=== PATIENT | male | born 1985 | race Caucasian/White ===

== ENCOUNTER 2023-05-25 10:02 | Outpatient (REF) | payer MEDICAID, SELFPAY ==
[2023-05-25 11:07] LABS: MANUAL DIFF FLAG NO
[2023-05-25 11:27] LABS: Basophils Percent Auto 0.3 % (0-2); Eosinophils Absolute Auto 0.1 X10*3/uL (0.0-0.4); Eosinophils Percent Auto 1.1 % (0-4); Hematocrit 46.1 % (42.0-52.0); Hemoglobin 15.1 g/dl (14.0-18.0); Imm Gran Abs Auto 0.05 X10*3/uL (0.00-0.03); Imm Gran Pct Auto 0.4 % (0.0-0.4); Lymphocytes Absolute Auto 2.4 X10*3/uL (1.2-4.9); Lymphocytes Percent Auto 21.5 % (20-40); Mean Corpuscular HGB Conc 32.8 g/dl (31.0-36.0); Mean Corpuscular Hemoglobin 29.1 pg (27.0-33.0); Mean Corpuscular Volume 88.8 fL (80.0-98.0); Mean Platelet Volume 10.6 fL (9.4-12.4); Monocytes Absolute Auto 1.1 X10*3/uL (0.1-1.2); Monocytes Percent Auto 10.1 % (2-11); Neutrophils Absolute Auto 7.4 x10*3/uL (2.0-8.3); Neutrophils Percent Auto 66.6 % (45-73); Platelet Count 226 X10*3/uL (160-400); Red Blood Count 5.19 X10*6/uL (4.60-5.80); White Blood Count 11.2 X10*3/uL (4.8-10.8)
[2023-05-25 12:36] LABS: Alanine Aminotransferase 10 U/L (0-40); Alkaline Phosphatase 76 U/L (39-117); Anion Gap 14 (12-20); Aspartate Amino Transferase 20 U/L (5-37); Bilirubin Total 0.8 mg/dL (0.0-1.0); Blood Urea Nitrogen 8 mg/dL (9-16); Calcium 9.4 mg/dL (8.4-10.2); Carbon Dioxide 27 mmol/L (22-29); Chloride 102 mmol/L (96-108); Estimated Glomerular Filt Rate > 60; Glucose Random 130 mg/dL (60-115); Potassium 3.6 mmol/L (3.3-5.1); Sodium 139 mmol/L (135-145); Total Protein 8.1 g/dL (6.5-8.0)
[2023-05-25 12:40] LABS: Microalbum/Creatinine Ratio Ur 6.1 ug/mg cr (<30)
== END 2023-05-25 10:03 | disposition home or self-care (01) ==
LOC: HO.HHCL 10:02
PROVIDERS: Visit Provider Internal Medicine Geriatric Medicine
DX: E11.65 Type 2 diabetes mellitus with hyperglycemia (principal); I10 Essential (primary) hypertension; E66.01 Morbid (severe) obesity due to excess calories; R44.0 Auditory hallucinations; F32.A Depression, unspecified; F10.20 Alcohol dependence, uncomplicated; G47.33 Obstructive sleep apnea (adult) (pediatric); R42 Dizziness and giddiness
CPT/HCPCS: 36415; 80053; 82043; 82570; 85025

== ENCOUNTER 2023-09-15 10:19 | Outpatient (REF) | payer MEDICAID, SELFPAY ==
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
[2023-09-15 11:43] LABS: Hematocrit 46.2 % (42.0-52.0); Hemoglobin 15.5 g/dl (14.0-18.0); Mean Corpuscular HGB Conc 33.5 g/dl (31.0-36.0); Mean Corpuscular Hemoglobin 28.9 pg (27.0-33.0); Mean Platelet Volume 9.7 fL (9.4-12.4); Platelet Count 194 X10*3/uL (160-400); Red Blood Count 5.37 X10*6/uL (4.60-5.80); Red Cell Distribution Width 14.6 % (11.0-16.0); White Blood Count 11.3 X10*3/uL (4.8-10.8)
[2023-09-15 11:54] LABS: Estimated Average Glucose 126 mg/dL
[2023-09-15 12:24] LABS: Creatinine Urine 211.41 mg/dL; Microalbum/Creatinine Ratio Ur 7.5 ug/mg cr (<30)
[2023-09-15 12:39] LABS: Folate 4.8 ng/mL (> or = 4.0); Vitamin B12 289 pg/mL (200-900)
[2023-09-15 12:43] LABS: HBc Num1 0.07 S/CO (0.00-0.79); HIV AB/AG Nonreactive (Nonreactive); HIV Num 1 0.08 S/CO (0.00-0.99); Hepatitis B Core Antibody Nonreactive (Nonreactive); Hepatitis B Surface Antigen Negative (Negative); ~HepC Num1 0.11 S/CO (0.00-0.79); ~Hepatitis B Surface Antibody NONREACTIVE (Nonreactive); ~Hepatitis C Antibody Nonreactive (Nonreactive)
[2023-09-15 12:50] LABS: Alanine Aminotransferase 19 U/L (0-40); Albumin Level 4.1 g/dL (3.5-5.0); Alkaline Phosphatase 91 U/L (39-117); Anion Gap 13 (12-20); Aspartate Amino Transferase 31 U/L (5-37); Bilirubin Total 1.2 mg/dL (0.0-1.0); Blood Urea Nitrogen 11 mg/dL (9-16); Calcium 9.2 mg/dL (8.4-10.2); Carbon Dioxide 25 mmol/L (22-29); Chloride 101 mmol/L (96-108); Cholesterol 224 mg/dL (<200); Estimated Glomerular Filt Rate > 60; Glucose Random 151 mg/dL (60-115); HDL Cholesterol 45 mg/dL (>40); LDL Cholesterol Calculated 154 mg/dL (<100); Potassium 3.4 mmol/L (3.3-5.1); Sodium 136 mmol/L (135-145); TSH reflex Free T4 2.37 uIU/mL (0.32-4.0); Total Protein 8.1 g/dL (6.5-8.0); Triglycerides 125 mg/dL (<150); Vitamin D 25-OH Total 7.1 ng/mL (>30)
[2023-09-15 12:59] LABS: Syphilis Screen Nonreactive (Nonreactive)
== END 2023-09-15 10:20 | disposition home or self-care (01) ==
LOC: HO.HHCL 10:19
PROVIDERS: Visit Provider Student in an Organized Health Care Education/Training Program
DX: Z00.00 Encounter for general adult medical examination without abnormal findings (principal); Z11.4 Encounter for screening for human immunodeficiency virus [HIV]; M54.6 Pain in thoracic spine; M54.2 Cervicalgia
CPT/HCPCS: 36415; 71046; 72040; 72070; 80053; 80061; 82043; 82306; 82570; 82607; 82746; 83036; 84443; 85027; 86704; 86706; 86780; 86803; 87340; 87389

== ENCOUNTER 2023-11-26 16:48 | Outpatient (REF) | payer MEDICAID, SELFPAY ==
[2023-11-26 18:40] LABS: CT PCR NOT DETECTED (Not Detect.); NG PCR NOT DETECTED (Not Detect.)
== END 2023-11-26 16:49 | disposition home or self-care (01) ==
LOC: HO.HHCLNP 16:48
PROVIDERS: Visit Provider Student in an Organized Health Care Education/Training Program
DX: Z00.00 Encounter for general adult medical examination without abnormal findings (principal); Z11.3 Encounter for screening for infections with a predominantly sexual mode of transmission
CPT/HCPCS: 0353U

== ENCOUNTER 2024-01-13 11:32 | Outpatient (REF) | payer MEDICAID, SELFPAY ==
--- NOTE | ~2024-01-13 | US_ITS ---
EXAMINATION: US ABDOMEN LIMITED CLINICAL INFORMATION: Massive dilatation in the lower abdomen.. COMPARISON: None available. TECHNIQUE: Real-time imaging of the abdominal wall. FINDINGS: No definite sonographic correlate to the reported symptom of palpable lump in the left periumbilical soft tissues. No evidence of hernia. US/US abdomen limited IMPRESSION: No definite sonographic correlate to the reported symptom of palpable lump in the left periumbilical soft tissues. No evidence of hernia.
== END 2024-01-13 11:33 | disposition home or self-care (01) ==
LOC: HO.US 11:32
PROVIDERS: PCP Student in an Organized Health Care Education/Training Program; Visit Provider Student in an Organized Health Care Education/Training Program
DX: R10.9 Unspecified abdominal pain (principal)
CPT/HCPCS: 76705

== ENCOUNTER 2024-02-08 13:22 | Outpatient (AMB) | payer MEDICAID, SELFPAY ==
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
[2024-02-08 13:35] VITALS: BP 165/90; PULSE 85; O2SAT 97; BMI 60.4
== END 2024-02-08 14:10 | disposition home or self-care (01) ==
PROVIDERS: PCP Student in an Organized Health Care Education/Training Program; Visit Provider Nurse Practitioner Family
DX: M47.817 Spondylosis without myelopathy or radiculopathy, lumbosacral region (principal); M54.50 Low back pain, unspecified; M25.561 Pain in right knee; M25.562 Pain in left knee; E66.01 Morbid (severe) obesity due to excess calories; Z68.44 Body mass index [BMI] 60.0-69.9, adult
CPT/HCPCS: 99204

== ENCOUNTER → 2024-02-08 13:22 | Outpatient (BNVA) | payer MEDICAID, SELFPAY | PROVIDERS: PCP Student in an Organized Health Care Education/Training Program; Visit Provider Nurse Practitioner Family | DX: M47.817 Spondylosis without myelopathy or radiculopathy, lumbosacral region (principal); M54.50 Low back pain, unspecified; G89.29 Other chronic pain; M25.562 Pain in left knee; M25.561 Pain in right knee; E66.01 Morbid (severe) obesity due to excess calories; Z68.44 Body mass index [BMI] 60.0-69.9, adult | CPT/HCPCS: 99212 ==

== ENCOUNTER 2024-02-18 10:54 | Outpatient (REF) | payer MEDICAID, SELFPAY | END 2024-02-18 10:55 | disposition home or self-care (01) | LOC: HO.HOSX 10:54 | DX: Z13.89 Encounter for screening for other disorder (principal) ==

== ENCOUNTER 2024-04-21 11:45 | Outpatient (REF) | payer MEDICAID, SELFPAY | END 2024-04-21 11:46 | disposition home or self-care (01) | LOC: HO.HOSX 11:45 | DX: Z13.89 Encounter for screening for other disorder (principal) ==

== ENCOUNTER 2024-05-09 10:49 | Outpatient (REF) | payer MEDICAID, SELFPAY ==
[2024-05-09 13:45] LABS: MANUAL DIFF FLAG NO
[2024-05-09 13:48] LABS: Basophils Percent Auto 0.3 % (0-2); Eosinophils Absolute Auto 0.1 X10*3/uL (0.0-0.4); Eosinophils Percent Auto 1.3 % (0-4); Hematocrit 45.5 % (42.0-52.0); Hemoglobin 15.5 g/dl (14.0-18.0); Imm Gran Abs Auto 0.14 X10*3/uL (0.00-0.03); Imm Gran Pct Auto 1.4 % (0.0-0.4); Lymphocytes Absolute Auto 2.3 X10*3/uL (1.2-4.9); Lymphocytes Percent Auto 23.4 % (20-40); Mean Corpuscular HGB Conc 34.1 g/dl (31.0-36.0); Mean Corpuscular Hemoglobin 30.4 pg (27.0-33.0); Mean Corpuscular Volume 89.2 fL (80.0-98.0); Mean Platelet Volume 10.4 fL (9.4-12.4); Monocytes Absolute Auto 1.1 X10*3/uL (0.1-1.2); Monocytes Percent Auto 11.7 % (2-11); Neutrophils Percent Auto 61.9 % (45-73); Platelet Count 189 X10*3/uL (160-400); Red Cell Distribution Width 13.4 % (11.0-16.0); White Blood Count 9.7 X10*3/uL (4.8-10.8)
[2024-05-09 13:55] LABS: Estimated Average Glucose 128 mg/dL; Hemoglobin A1C 179.3447 umol/L; Hemoglobin A1c % 6.1 % (<6.0)
[2024-05-09 14:32] LABS: Alanine Aminotransferase 67 U/L (0-40); Albumin Level 3.9 g/dL (3.5-5.0); Alkaline Phosphatase 70 U/L (39-117); Anion Gap 15 (12-20); Aspartate Amino Transferase 74 U/L (5-37); Bilirubin Total 0.9 mg/dL (0.0-1.0); Blood Urea Nitrogen 9 mg/dL (9-16); Calcium 9.3 mg/dL (8.4-10.2); Carbon Dioxide 23 mmol/L (22-29); Chloride 102 mmol/L (96-108); Cholesterol 138 mg/dL (<200); Estimated Glomerular Filt Rate > 60; Glucose Random 135 mg/dL (60-115); HDL Cholesterol 33 mg/dL (>40); LDL Cholesterol Calculated 84 mg/dL (<100); Potassium 3.4 mmol/L (3.3-5.1); Sodium 137 mmol/L (135-145); Total Protein 7.8 g/dL (6.5-8.0); Triglycerides 106 mg/dL (<150)
[2024-05-09 14:42] LABS: Vitamin B12 322 pg/mL (200-900)
[2024-05-09 15:00] LABS: Creatinine Urine 262.21 mg/dL; Microalbum/Creatinine Ratio Ur 5.3 ug/mg cr (<30)
[2024-05-09 15:27] LABS: CT PCR NOT DETECTED (Not Detect.); NG PCR NOT DETECTED (Not Detect.)
== END 2024-05-09 10:50 | disposition home or self-care (01) ==
LOC: HO.HHCL 10:49
PROVIDERS: Visit Provider Student in an Organized Health Care Education/Training Program
DX: Z00.00 Encounter for general adult medical examination without abnormal findings (principal); E11.9 Type 2 diabetes mellitus without complications; Z11.3 Encounter for screening for infections with a predominantly sexual mode of transmission
CPT/HCPCS: 80053; 80061; 82043; 82570; 82607; 82746; 83036; 85025; 87491; 87591

== ENCOUNTER 2024-05-29 12:42 | Outpatient (REF) | payer MEDICAID, SELFPAY | END 2024-05-29 12:43 | disposition home or self-care (01) | LOC: HO.HOSX 12:42 | DX: Z13.89 Encounter for screening for other disorder (principal) ==

== ENCOUNTER 2024-06-12 13:32 | Outpatient (AMB) | payer MEDICAID, SELFPAY ==
[2024-06-12 14:32] VITALS: BP 120/60; PULSE 83; BMI 59.1
--- NOTE | 2024-06-12 14:32 | A.OFFVIS_ITS ---
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 He states that he gets a chest pressure and he points to the substernal area. This is somewhat random and has been present for many years. He can happen any time. He can happen when he sitting, lying down, sleeping, walking extra. Hence overall atypical for angina. However, he does have numerous cardiovascular risk factors including morbid obesity, diabetes, hypertension among others. Hence referred for further evaluation. [facility] Medical History (Updated 06/12/24 @ 15:19 by Tyrel Wu MD) Hyperlipidemia, unspecified Thoracic stomach hernia Hernia WARREN (obstructive sleep apnea) Schizo-affective schizophrenia Morbid obesity Auditory hallucination Hypertension Controlled diabetes mellitus with hyperglycemia, without long-term current use of insulin Alcoholism JULIÁN (generalized anxiety disorder) Vitamin D deficiency Leukocytosis Lower abdominal pain Family History (Updated 06/12/24 @ 14:55 by Kierra Ivy) Mother Heart problem Father Heart problem Cancer Social History (Updated 03/07/24 @ 10:19 by ALFONZO Cr) Alcohol intake: current Alcohol intake frequency: holidays/special occasions only Patient Tobacco Use Status: Never used Tobacco Current occupational status: disabled Review of Systems Const Denies weakness ENT Denies dizziness Card Reports chest pain, Denies chest pain with activity, Denies syncope, Denies rapid heart rate, Denies pedal edema, Denies edema, Denies leg edema, Denies lightheadedness, Reports palpitations, Denies dyspnea, Denies dyspnea on exertion and Reports orthopnea Resp Denies cough, Denies dyspnea and Denies dyspnea on exertion GI Denies hematochezia and Denies change in stool character Musc Denies abnormal gait, Denies muscle cramps, Denies muscle weakness, Denies numbness, Denies radiating pain into limb and Denies tingling Neuro Denies abnormal gait, Denies dizziness, Denies syncope, Denies numbness, Denies tingling and Denies weakness Endo Reports palpitations Physical Exam Vital Signs: Last Vital Signs Pulse 83 06/12/24 14:32 BP 120/60 06/12/24 14:32 BMI result Body Mass Index 59.1 Const General: comfortable and no acute distress Orientation/consciousness: patient oriented x3 HEENT Other: Unremarkable Head: Yes normal to inspection Neck Neck: Yes normal visual inspection Chest Chest palpation & inspection: normal inspection of the chest Resp Auscultation: clear to auscultation bilaterally Cardio Palpation: normal PMI Heart sounds: S1 normal heart sound present, S2 normal heart sound present, no gallops, no murmurs and no rubs GI Palpation (GI): Soft to palpation Back/Spine/Pelvis Other: unremarkable Skin General skin exam: no rashes or lesions noted Neuro General: patient oriented x3 Extrem General: Yes normal to inspection Psych Mental Status: mental status grossly normal Office Procedures EKG Details: EKG with underlying sinus rhythm at 83/Min; leftward axis; cannot exclude old anterior infarct; [place] [id number], Complete Assessment & Plan Assessment & Plan (1) Precordial chest pain: Code(s): R07.2 - Precordial pain Category: Medical (2) Controlled diabetes mellitus with hyperglycemia, without long-term current use of insulin: Code(s): E11.65 - Type 2 diabetes mellitus with hyperglycemia Category: Medical (3) Morbid obesity: Code(s): E66.01 - Morbid (severe) obesity due to excess calories Category: Medical (4) Hypertension: Code(s): I10 - Essential (primary) hypertension Category: Medical (5) Hyperlipidemia, unspecified: Code(s): E78.5 - Hyperlipidemia, unspecified Category: Medical Plan Atypical chest pain with many comorbidities. Obtain coronary CTA for further evaluation. Echocardiogram for cardiac function. Follow-up after the above. Orders: Orders CT Cardiac Coronary Angio Today I25.10 - Atherosclerotic heart disease of [place] coronary artery without angina pectoris, R07.2 - Precordial pain Basic Metabolic Panel Today R07.2 - Precordial pain CA echo transthoracic complete Today R07.2 - Precordial pain Coding Level of Care Code New Pt Level 4 (46011) Diagnoses Precordial chest pain R07.2 Controlled diabetes mellitus with hyperglycemia, without long-term current use of insulin E11.65 Morbid obesity E66.01 Hypertension I10 Hyperlipidemia, unspecified E78.5 CPT Codes EKG - CPT: 11419-[id number], Complete ([id number])
== END 2024-06-12 15:25 | disposition home or self-care (01) ==
PROVIDERS: PCP Student in an Organized Health Care Education/Training Program; Visit Provider Internal Medicine
DX: R07.2 Precordial pain (principal); E11.65 Type 2 diabetes mellitus with hyperglycemia; E66.01 Morbid (severe) obesity due to excess calories; I10 Essential (primary) hypertension; E78.5 Hyperlipidemia, unspecified
CPT/HCPCS: 93010; 99204

== ENCOUNTER → 2024-06-12 13:32 | Outpatient (BNVA) | payer MEDICAID, SELFPAY | PROVIDERS: PCP Student in an Organized Health Care Education/Training Program; Visit Provider Internal Medicine | DX: I25.10 Atherosclerotic heart disease of native coronary artery without angina pectoris (principal); I10 Essential (primary) hypertension; R07.2 Precordial pain; E66.01 Morbid (severe) obesity due to excess calories; E11.65 Type 2 diabetes mellitus with hyperglycemia; E78.5 Hyperlipidemia, unspecified; Z68.43 Body mass index [BMI] 50.0-59.9, adult | CPT/HCPCS: 93005; 99202 ==

== ENCOUNTER → 2024-06-19 08:54 | Outpatient (REF) | payer MEDICAID, SELFPAY ==
--- NOTE | 2024-06-19 08:58 | CA_ITS ---
Transthoracic Echocardiogram Patient (Last, First, Middle): Yazan Moreno, Gender: Male Date of : 1985 Age: 39 Procedure Date: 06/19/2024 Procedure Type: Transthoracic Echocardiogram Location: OP Height: 167.64 cm Weight: 165.56 kg BSA: 2.58 m2 Heart Rate: bpm BP: 120 / 60 mmHg Fashion Artist: AMBIKA Referring MD: Tyrel Wu MD Symptoms: R07.2 - Precordial pain Study Quality: Fair, contrast ECG Rhythm: Sinus Conclusions: - The left ventricular systolic function is normal. The calculated ejection fraction is 66% by biplane method. - No obvious valvular pathology seen on this study. Findings Procedure Information Contrast agent, definity, is being given per protocol without apparent complications. Left Ventricle Normal left ventricular cavity size. There is mildly increased left ventricular wall thickness. The left ventricular systolic function is normal. The calculated ejection fraction is 66% by biplane method. There is no evidence of regional wall motion abnormalities. Diastolic function is normal for age. Right Ventricle Moderately increased right ventricular cavity size. There is normal right ventricular systolic function. Atria Both atria are normal in size. Aortic Valve The aortic valve was not well visualized. There is no aortic valve stenosis. There is no aortic valve regurgitation. Mitral Valve The mitral valve appears normal. There is no mitral valve regurgitation. There is no mitral valve stenosis. Pulmonic Valve The pulmonic valve is likely normal. Tricuspid Valve There is no tricuspid valve regurgitation. Tricuspid regurgitation envelope is inadequate for calculation of right ventricular systolic pressure. Great Vessels The asc aorta and aortic arch are normal in size. Venous The inferior vena cava was not well visualized. Pericardium/Pleural There is no evidence of pericardial effusion. Prior Study Comparison No prior study available for comparison. Recommendations, Care & Conclusions No obvious valvular pathology seen on this study. Measurements 2D Linear Measurements IVSd: 1.10 0.6-0.9/0.6-1.0 cm LVIDd: 5.19 3.9-5.3/4.2-5.9 cm LVIDd Index: 2.01 2.4-3.2/2.2-3.1 cm/m2 LVIDs: 3.48 2.0-3.6 cm LVPWd: 1.07 0.7-1.1 cm LA Diam: 3.90 2.7-3.8/3.0-4.0 cm LAIDs Index: 1.51 1.5-2.3 cm/m2 LV Mass: 269.25 67-162/88-224 g LV Mass Index: 104.36 43-95/49-115 g/m2 LVOT Diam: 2.40 3.0+(-)1.3 cm 2D Systolic Function EF 4C: 68.00 >55% EF 2C: 66.10 >55% EF BiP: 66.00 >55% Mitral Valve MV Pk E: 1.07 MV PK A: 0.76 MV Decel Time: 152.00 E/A: 1.40 E'Lateral: 11.20 E'Medial: 7.29 E/E' Med: 14.70 E/E' Lat: 9.60 PHT: 44.00 MVA PHT: 5.00 Decel Union: 7.03 Aortic Valve AoV Pk Doni: 1.59 AoV Mn Doni: 1.16 AoV VTI: 0.33 AoV Pk Grad: 10.00 Aov Mn Grad: 6.00 NOHEMY Cont.VTI: 3.82 LVOT LVOT Pk Doni: 1.47 LVOT Mn Doni: 0.90 LVOT VTI: 0.28 LVOT Pk Grad: 9.00 LVOT Mn Grad: 4.00 LVOT Diam: 2.40 LVOT Area: 4.52 Diastolic Function MV Pk E: 1.07 MV Pk A: 0.76 E/A: 1.40 E'Medial: 7.29 E/E' Med: 14.70 E' Laterial: 11.20 E/E' Lat: 9.60 Right Ventricle TAPSE (mm): 28.10 TVS' Doni: 17.10 Great Vessels Aorta Ao Asc: 3.20 2.1-3.4 cm Ao Arch: 2.70 Updated in Other Vendor System with Status of Final Tyrel Wu MD electronically signed on 06/19/2024 12:18:19 PM with status of Final
== END ==
LOC: HO.CARD 08:54
PROVIDERS: PCP Student in an Organized Health Care Education/Training Program; Visit Provider Internal Medicine
DX: R07.2 Precordial pain (principal)
CPT/HCPCS: 93306; Q9957

== ENCOUNTER → 2024-06-19 08:58 | Outpatient (BNV) | payer MEDICAID, SELFPAY | PROVIDERS: PCP Student in an Organized Health Care Education/Training Program; Visit Provider Internal Medicine | DX: R07.2 Precordial pain (principal) | CPT/HCPCS: 93306 ==

== ENCOUNTER 2024-07-26 10:48 | Outpatient (REF) | payer MEDICAID, SELFPAY ==
--- NOTE | ~2024-07-26 | XR_ITS ---
CLINICAL HISTORY: M25.562 - Pain in left knee Two views of the bilateral knee and additional two views of the left knee Comparison: None Findings: No fractures or dislocations. Severe tricompartmental degenerative changes of the knee with joint space narrowing of the medial compartment and osteophytes. No joint effusion. No radiopaque foreign body. IMPRESSION: 1. No acute findings. Severe tricompartmental degenerative changes of the knee. This document has been electronically signed by: Kaelyn Hernandez MD on 07/27/2024 21:22:02
--- NOTE | ~2024-07-26 | XR_ITS ---
CLINICAL HISTORY: M17.11 - Unilateral primary osteoarthritis, right knee 2 view right knee Comparison: None Findings: No fractures or dislocations. Severe tricompartmental degenerative changes of the knee with joint space narrowing of the medial compartment and osteophytes. Small joint effusion. No radiopaque foreign body. There are multiple soft tissue calcification of the posterior knee. IMPRESSION: 1. No acute findings. Severe tricompartmental degenerative changes of the knee. This document has been electronically signed by: Kaelyn Hernandez MD on 07/27/2024 21:22:57
--- OUTSIDE RECORDS SUMMARY | 2024-07-27 14:35 | XMS_ITS | Clinical Summary ---
Author Organization [employer] Address [address] [place] [address] 7t [place] [address] Care Team Providers Care Operations Supervisor Chemical Cleaning Name Role Phone Phyllis Skinner MD Primary [...] 2 4 01/07/20 25 Active sodium chloride ([place]) 0.65 % nasal sprayIndications :Epistaxis Administer 1 spray into each nostril if needed for congestion. 15 mL 3 4 01/26/20 25 Active Multiple Vitamin (Multivitamin) tablet Take 1 tablet by mouth in the morning. 90 tablet 1 4 Active ergocalciferol (Vitamin D2) 1.25 MG (19867 UT) capsule Take 1 capsule (1.25 mg) [...] Provided information for [facility]- crisis numbers and [facility] help line. I will referred pt for IP therapy and psychopharmacology, Yazan also agreed to do referral for CM to assist with transportation and housing insecurities. clinician will provide follow-up BE per patient's request to assess sxs and provide additional support. PLAN: (check all that apply) New/Additional Services needed Off-site services for Behavioral Health Integration Plan Internal Follow up with [facility] External OP therapy referral and OP psychiatry Referral Patient Self Plan Patient to utilize skills provided in intervention , Patient to reach out to [facility] team as needed, Comply with medication , Patient to engage in OP therapy , and Patient to reach out to [facility] as needed Vitamin D deficiency 11/26/2023 Lower [...] Unable to engage with last referral for [facility] in [place]. Pt identifies listening to music as a relaxing coping strategy. During today's session Yazan was provided with a safe space to share his concerns and emotions. Reviewed and assessed for risk, current stressors and protective factors using open-ended questions. Pt will be referred to psych with Chase Guzmán and [facility] for OP therapy. clinician will [...] Provided information for CB- crisis numbers and [facility] help line. I will referred pt for IP therapy and psychopharmacology, Yazan also agreed to do referral for CM to assist with transportation and housing insecurities. clinician will provide follow-up BE per patient's request to assess sxs and provide additional support. PLAN: (check all that apply) New/Additional Services needed Off-site services for Behavioral Health Integration Plan Internal Follow up with [facility] External OP therapy referral and OP psychiatry Referral Patient Self Plan Patient to utilize skills provided in intervention , Patient to reach out to [facility] team as needed, Comply with medication [...] Provided information for [facility]- crisis numbers and [facility] help line. I will referred pt for IP therapy and psychopharmacology, Yazan also agreed to do referral for CM to assist with transportation and housing insecurities. clinician will provide follow-up BE per patient's request to assess sxs and provide additional support. PLAN: (check all that apply) New/Additional Services needed Off-site services for Behavioral Health Integration Plan Internal Follow up with [facility] External OP BH therapy referral and OP psychiatry Referral Patient Self Plan Patient to utilize skills provided in intervention , Patient to reach out to [facility] team as needed, Comply with medication , Patient to engage in OP therapy , and Patient to reach out to [facility] as needed Assessment & Plan (05/24/2023 1:22 PM EST): aYzan reports hearing voices, seeing shadows and leprechauns. [...] as he would like to schedule with custodial therapist. I provided my information, and he [...] Description 07/26/2024 11:15 AM EST Office Visit [facility] [address] [place] [address] Anil Gross CNP Shortness of breath (Primary Dx); WARREN (obstructive sleep apnea); Chronic cough; Edema, lower extremity 07/26/2024 Travel 07/11/2024 Telephone [facility] [address] [place] [address] Phyllis Skinner MD Chart Prep 07/10/2024 Telephone [facility] [address] [place] [address] Nehemiah Santana MA T/C change PCP request 07/10/2024 Telephone [facility] [address] [place] [address] Phyllis Skinner MD Change PCP 07/07/2024 Patient Outreach [facility] [address] [place] [address] [phone] Phyllis Skinner MD Care Coordination (CHW outreach for SDOH PT-1 and food needs-referral completed /) 07/07/2024 Telephone [facility] [address] [place] [address] Phyllis Skinner MD No Show 07/07/2024 Telephone [facility] [address] [place] [address] 35795 Phyllis Skinner MD PT-1 07/05/2024 Telephone [facility] [address] [place] [address] Bertha Cook MA Chart Prep 07/04/2024 Telephone [facility] [address] [place] [address] Phyllis Skinner MD Referral 06/30/2024 Patient Outreach [address] [address] Phyllis Skinner MD Care Coordination (CHW outreach for SDOH PT-1 and food needs-referral completed /) 06/30/2024 Telephone [facility] [address] [place] [address] Phyllis Skinner MD Medication Question; Referral 06/30/2024 Telephone [facility] [address] [place] [address] 624[address] Phyllis Skinner MD PT-1 06/16/2024 Telephone [facility] [address] [place] [address] Irasema Carmona, project consultant 06/12/2024 Telephone [facility] [address] [place] [address] Brina Maria RNproject consultant (Denise MANJARREZ denied) 06/07/2024 Telephone [facility] [address] [place] [phone] Radha Kang RNproject consultant (Denise MANJARREZ ) 05/26/2024 Refill [facility] [address] [place] [address] Phyllis Skinner MD 05/19/2024 Telephone [facility] [address] [place] [address] Phyllis Skinner MD Referral 05/19/2024 Telephone [facility] [address] [place] [address] 319[address] Phyllis Skinner MD 05/11/2024 Telephone [facility] [address] [place] [phone] Lindsay Blevins RN Home PT referral 05/10/2024 2:00 PM EST Office Visit [facility] [address] [place] [address] Phyllis Skinner MD WARREN (obstructive sleep apnea) (Primary Dx); Type 2 diabetes mellitus with hyperglycemia, without long-term current use of insulin ([facility]); Primary hypertension; Morbid obesity ([facility]); Alcoholism ([facility]); Auditory hallucination; JULIÁN (generalized anxiety disorder); Health care maintenance; Hyperlipidemia, unspecified hyperlipidemia type; Schizoaffective disorder, depressive type ([facility]) 05/10/2024 Travel 05/08/2024 Telephone [facility] [address] [place] [address] Suzie Thao MA chart prep 05/05/2024 Telephone [facility] [address] [place] [phone] Phyllis Skinner MD Prior Authorization ( PA: Denise) 05/03/2024 Refill [facility] [address] [place] [address] Phyllis Skinner MD Primary hypertension from Last [...] with others, in a hotel, in a nursing home, living outside on the street, on [...] Description 08/25/2024 1:30 PM EST Office Visit [facility] [address] [place] [address] Anil Gross, PULMONARY FUNCTION TECHNICIAN [address] [place], [place] [phone] Health Maintenance Due Date Last Done Comments [...] hyperglycemia, without long-term current use of insulin ([facility]) COMPREHENSIVE METABOLIC PANEL Routine 07/26/2024 11:45 AM [...] Vitamin D 25-OH Total 33.2 >30 ng/mL [facility] Comment:Health Based Referen ce Values*< 20 ng/mL Zfdzkoity22-31 ng/mL Insufficient> 30 ng/mL Sufficient*[facility] WEST. N [...] MD LAB BLOOD ORDERAB LES Final Result [facility] [address] [place] [phone] * CBC (07/26/2024 11:45 AM EST) White Blood Count 10.6 4.8 - 10.8 X10*3/uL [facility] Red Blood Count 4.84 4.60 - 5.80 X10*6/uL [facility] Hemoglobin 14.7 14.0 - 18.0 g/dl [facility] Hematocrit 43.0 42.0 - 52.0 % [facility] Mean Corpuscular Volume 88.8 80.0 - 98.0 fL [facility] Mean Corpuscular Hemoglobin 30.4 27.0 - 33.0 pg [facility] Mean Corpuscular HGB Conc 34.2 31.0 - 36.0 g/dl [facility] Red Cell Distribution Width 14.4 11.0 - 16.0 % [facility] Platelet Count 166 160 - 400 X10*3/uL [facility] Mean Platelet Volume 9.8 9.4 - 12.4 fL [facility] NRBC Pct Auto 0.0 0.0 - 0.2 /100WBC [facility] NRBC Abs Auto 0.000 0.0 - 0.012 X10*3/uL [facility] Blood Venous blood specimen / Unknown 07/26/2024 11:45 AM EST 07/26/2024 1:23 PM EST Phyllis Roach MD LAB BLOOD ORDERAB LES Final Result Performing Organization Address [facility] Co de Phone Number [facility] [address] [place] [phone] * (ABNORMAL) B Type Natriuretic Peptide (BNP) (07/26/2024 11:45 AM EST) B Type Natriuretic Peptide 148(H) <100 pg/mL [facility] Comment:For those patients w ho are being treated with Natrecor(nesiritide, recombinant BNP), BNP testing should beperformed at least two hours post treatment in order toensure that only endogenous levels of BNP are detected. Blood Venous blood specimen / Unknown 07/26/2024 11:45 AM EST 07/26/2024 1:25 PM EST Anil Gross CNP LAB BLOOD ORDERABLES Albertina l Result [facility] [address] [place] [phone] * (ABNORMAL) Comprehensive Metabolic Panel (07/26/2024 11:45 AM EST) Only the most recent of2 resultswithin the time period is included. Sodium 137 135 - 145 mmol/L [facility] Potassium 3.2(L) 3.3 - 5.1 mmol/L [facility] Chloride 103 96 - 108 mmol/L [facility] Carbon Dioxide 25 22 - 29 mmol/L [facility] Anion Gap 12 12 - 20 [facility] Urea Nitrogen (BUN) 8(L) 9 - 16 mg/dL [facility] Creatinine, Serum 0.63 0.5 - 1.4 mg/dL [facility] Estimated Glomerular Filt Rate >60 [facility] Comment:Chronic Kidney Disea se: Estimated GFR < 60 mL/min/[id number] Kidney Disease: Estimated GFR < 15 mL/min/1.73m2 Glucose 147(H) 60 - 115 mg/dL [facility] Calcium 8.6 8.4 - 10.2 mg/dL [facility] Bilirubin, Total 0.9 0.0 - 1.0 mg/dL [facility] Aspartate Amino Transferase 40(H) 5 - 37 U/L [facility] Alanine Aminotransferase 23 0 - 40 U/L [facility] Total Protein 7.8 6.5 - 8.0 g/dL [facility] Albumin Level 3.9 3.5 - 5.0 g/dL [facility] Alkaline Phosphatase 69 39 - 117 U/L [facility] Blood Venous blood specimen / Unknown 07/26/2024 11:45 AM EST 07/26/2024 1:23 PM EST us Phyllis Roach MD LAB BLOOD ORDERAB LES Final Result [facility] [address] [place] [phone] * (ABNORMAL) POCT HGB A1C (05/10/2024 [...] Vitamin B12 322 200 - 900 pg/mL [facility] Comment:NORMAL 200-900 PG/ML INDETERMINATE 160-199 PG/ML DEFICIENT < 160 PG/ML Folate 5.0 > or = 4.0 ng/mL [facility] Comment:Reference Values:> o r = 4.0 ng/mL< 4.0 ng/mL suggests folate deficiency Methotrexate, aminopterin and folinic acid(leucovorin) are chemotherapeutic agents whose molecularstructures are similar to folate; therefore, the Architectfolate assay cannot be used for patients using these drugs. Blood 05/09/2024 10:5 5 AM EST 05/09/2024 1:45 PM EST Phyllis Roach MD LAB BLOOD ORDERAB LES Final Result [facility] [address] [place] [phone] * Albumin, Random Urine W/Creatinine (05/09/2024 10:55 AM EST) Creatinine, Urine 262.21 mg/dL [facility] Microalbumin Urine 14.0 mg/L [facility] Microalbum Creatinine Ratio Ur 5.3 <30 ug/mg cr [facility] Comment:Albumin/Creatinine R atio Reference Ranges: Normal: < 30 ug/mg creatinine Microalbuminuria: 30 - 300 ug/mg creatinineClinical Albuminuria: > 300 ug/mg creatinine Urine (Urine, Random) 05/09/2024 10:55 AM EST 05/09/2024 1:10 PM EST us Phyllis Roach MD LAB URINE ORDERAB LES Final Result [facility] [address] [place] [address] [phone] * (ABNORMAL) CBC auto differential (05/09/2024 10:55 AM EST) Pathologist [facility] White Blood Count 9.7 4.8 - 10.8 X10*3/uL [facility] Red Blood Count 5.10 4.60 - 5.80 X10*6/uL [facility] Hemoglobin 15.5 14.0 - 18.0 g/dl [facility] Hematocrit 45.5 42.0 - 52.0 % [facility] Mean Corpuscular Volume 89.2 80.0 - 98.0 fL [facility] Mean Corpuscular Hemoglobin 30.4 27.0 - 33.0 pg [facility] Mean Corpuscular HGB Conc 34.1 31.0 - 36.0 g/dl [facility] Red Cell Distribution Width 13.4 11.0 - 16.0 % [facility] Platelet Count 189 160 - 400 X10*3/uL [facility] Mean Platelet Volume 10.4 9.4 - 12.4 fL [facility] Neutrophils Percent Auto 61.9 45 - 73 % [facility] Imm Gran Pct Auto 1.4(H) 0.0 - 0.4 % [facility] Lymphocytes Percent Auto 23.4 20 - 40 % [facility] Monocytes Percent Auto 11.7(H) 2 - 11 % [facility] Eosinophils Percent Auto 1.3 0 - 4 % [facility] Basophils Percent Auto 0.3 0 - 2 % [facility] NRBC Pct Auto 0.0 0.0 - 0.2 /100WBC [facility] Neutrophils Absolute Auto 6.0 2.0 - 8.3 x10*3/uL [facility] Imm Gran Abs Auto 0.14(H) 0.00 - 0.03 X10*3/uL [facility] Lymphocytes Absolute Auto 2.3 1.2 - 4.9 X10*3/uL [facility] Monocytes Absolute Auto 1.1 0.1 - 1.2 X10*3/uL [facility] Eosinophils Absolute Auto 0.1 0.0 - 0.4 X10*3/uL [facility] Basophils Absolute Auto 0.0 0.0 - 0.2 X10*3/uL [facility] NRBC Abs Auto 0.000 0.0 - 0.012 X10*3/uL [facility] Blood Venous blood specimen / Unknown 05/09/2024 10:55 AM EST 05/09/2024 1:43 PM EST us Phyllis Roach MD LAB BLOOD ORDERAB LES Final Result [facility] [address] [place], [place] [phone] * Chlamydia/N. Gonorrhoeae RNA, TMA, Urogenitial (05/09/2024 10:55 AM EST) CT PCR NOT DETECTED Not Detect. [facility] Comment:A not detected test result [...] psychologicalconsequences. NG PCR NOT DETECTED Not Detect. [facility] Comment:A not detected test result [...] AM EST 05/09/2024 1:10 PM EST Narrative [facility] - 05/09/2024 3:27 PM EST Urine us Phyllis Roach MD LAB MICROBIOLOGY - GENERAL ORDERABLES Final Result [facility] [address] [place] [phone] * (ABNORMAL) Hemoglobin A1c (05/09/2024 10:55 AM EST) Hemoglobin A1c 6.1(H) <6.0 % [facility] Comment:Hemoglobin A1C Refer ence Range Adults: 4.8 - 6.0 % Non diabetic: < 6.0 % Goal: < 7.0 %Additional Action Suggested: > 8.0 %Note: Hemoglobin A1c results are invalid for patients with abnormal amounts of HbF. Blood transfusions may impact the HbA1c concentration in the patient sample. Estimated Average Glucose 128 mg/dL [facility] Comment:eAG = Estimated ave rage glucose which is %A1C expressed asaverage glucose, using the formula of the Q6X-HwyblljFndpnus Glucose study (ADAG), Diabetes Care, Vol.31,#8,Jan. 2007 Blood Venous blood specimen / Unknown 05/09/2024 10:55 AM EST 05/09/2024 1:43 PM EST Phyllis Roach MD LAB BLOOD ORDERAB LES Final Result [facility] [address] [place] [address] [phone] * (ABNORMAL) Lipid Panel, Standard (05/09/2024 10:55 AM EST) Triglycerides 106 <150 mg/dL [facility] Comment:Desirable Triglyceri de: less than 150 mg/dLBorderline High Triglyceride 150-199 mg/dLHigh Triglyceride: 200-499 mg/dLVery High Triglyceride: greater than or equal to 5OO mg/dL Cholesterol 138 <200 mg/dL [facility] Comment:Desirable Cholestero l: less than 200 mg/dLBorderline High Cholesterol: 200-239 mg/dLHigh Cholesterol: greater than 239 mg/dL LDL Cholesterol Calculated 84 <100 mg/dL [facility] Comment:Desirable LDL: less than 100 mg/dLNear Optimal/Above Optimal LDL: 110- 129 mg/dLBorderline High LDL: 130-159 mg/dLHigh LDL: 160-189 mg/dLVery High LDL: greater than or equal to 190 mg/dL HDL Cholesterol 33(L) >40 mg/dL [facility] Comment:Desirable HDL: great er than 40 mg/dL Note: This HDL assay may give artificially low results in patients with liver disease. Blood Venous blood specimen / Unknown 05/09/2024 10:55 AM EST 05/09/2024 1:45 PM EST Phyllis Roach MD LAB BLOOD ORDERAB LES Final Result Performing Organization Address [facility] Co de Phone Number [facility] [address] [place] [address] [phone] * Hepatitis C Antibody with Reflex to HCV, RNA, Quantitative, Real-Time PCR (09/15/2023 10:24 AM EDT) Hepatitis C Antibody Nonreactive Nonreactive [facility] Comment:Antibodies to HCV no t detected; does not exclude early acuteHCV infection. Blood Venous blood specimen / Unknown 09/15/2023 10:24 AM EDT 09/15/2023 11:20 AM EDT Phyllis Roach MD LAB BLOOD ORDERAB LES Final Result Performing Organization Address [facility] Co de Phone Number [facility] [address] [place] [address] [phone] * HIV-1/2 Antigen and Antibodies, Fourth Generation, with Reflexes (09/15/2023 10:24 AM EDT) HIV AB/AG Nonreactive Nonreactive [facility] Comment:HIV-1 p24 Ag and/or HIV-1/HIV-2 Ab not detected.A test result that is nonreactive does not exclude thepossibility of exposure to or infection with HIV-1 and/orHIV-2. Nonreactive results in this assay for individualswith prior exposure to HIV-1 and/or HIV-2 may be due toantigen and antibody levels that are below the limit ofdetection of this assay.The Elli HIV Ag/Ab Combo assay result andsupplemental assay results should be interpreted inconjunction with the patient's clinical presentation,history and other laboratory results. If the results areinconsistent with clinical evidence, additional testing issuggested to confirm the result. Blood Venous blood specimen / Unknown 09/15/2023 10:24 AM EDT 09/15/2023 11:20 AM EDT Phyllis Roach MD LAB BLOOD ORDERAB LES Final Result [facility] [address] [place] [phone] from Last 3 Months or Most Recently Relevant to Health Maintenance Insurance [facility] C3 HSN FULL Care Teams Operations Supervisor Chemical Cleaning Relationship Specialty Start Date End Date Phyllis Skinner MD [address] [place] [phone] PCP - General Internal Medicine 07/29/23 [facility] 05/23/24
--- OUTSIDE RECORDS SUMMARY | 2024-07-27 14:35 | XMS_ITS | Encounter Summary ---
Author Organization [employer] Address [address] [facility] [address]t [place] [address] Care Team Providers Care Technology Sales Representative Name Role Phone Phyllis Skinner MD Primary [...] with others, in a hotel, in a assisted, living outside on the street, on a [...] Description 08/25/2024 1:30 PM EST Office Visit [facility] [address] [place] [address] Anil Gross CNP [address] [place] [address] documented as of this encounter Visit Diagnoses Not on filedocumented in this encounter Additional Health Concerns Assessment Noted Time PHQ-9 Depression Total Score: 17 024 11:12 AM EST documented as of this encounter Care Teams Technology Sales Representative Relationship Specialty Start Date End Date Phyllis Skinner MD [address] [place] [address] PCP - General Internal Medicine 07/29/23 [facility] 05/23/24 documented as of this encounter
--- OUTSIDE RECORDS SUMMARY | 2024-07-27 14:35 | XMS_ITS | Encounter Summary ---
Author Organization [employer] Address [address] [place] [address] [address] [place] [address] Care Team Providers Care Aeronautical Products Sales Engineer Name Role Phone Phyllis Skinner MD Primary Care Pro vider Reason for Visit * Reason Onset Date Comments Referral 07/04/2024 Encounter Details Date Type Department Care Team (Late st Contact Info) Description 07/04/2024 Telephone [facility] [address] [place] [address] Phyllis Skinner MD [address] [place] [address] Referral Social History Tobacco Use Types Packs/Day [...] study on 07/30/23 to be changed from [facility] to the [facility] in [place] due to pt not having transportation. If any questions contact pt at [phone] documented in this encounter Plan of Treatment Upcoming Encounters Date Type Department Care Team (Late st Contact Info) Description 08/25/2024 1:30 PM EST Office Visit [facility] [address] [place], [place] [phone] Anil Gross CNP [address], [place] [phone] documented as of this encounter Visit Diagnoses Not on filedocumented in this encounter Additional Health Concerns Assessment Noted Time PHQ-9 Depression Total Score: 17 024 11:12 AM EST documented as of this encounter Care Teams Aeronautical Products Sales Engineer Relationship Specialty Start Date End Date Phyllis Skinner MD [address] [place] [phone] PCP - General Internal Medicine 07/29/23 [facility] 05/23/24 documented as of this encounter
--- OUTSIDE RECORDS SUMMARY | 2024-07-27 14:35 | XMS_ITS | Encounter Summary ---
Author Organization [employer] Address [address] [facility] 7t [place] [address] Care Team Providers Care Fastener Sewing Machine Operator Name Role Phone Phyllis Skinner MD Primary Care Pro vider Reason for Visit * Reason Onset Date Comments Chart Prep 07/05/2024 Encounter Details Date Type Department Care Team (Late st Contact Info) Description 07/05/2024 Telephone [facility] [address] [place] [address] Bertha Cook MA Chart Prep Social History [...] with others, in a hotel, in a longterm, living outside on the street, on a [...] Psychiatry 2nd attempt made, unable to reach [facility] to call back. Screenings: Eye Exam Overdue care gaps: Glucose documented in this encounter Plan of Treatment Upcoming Encounters Date Type Department Care Team (Late st Contact Info) Description 08/25/2024 1:30 PM EST Office Visit [facility] [address] [place] [address] Anil Gross CNP [address] [place] [address] documented as of this encounter Visit Diagnoses Not on filedocumented in this encounter Additional Health Concerns Assessment Noted Time PHQ-9 Depression Total Score: 17 024 11:12 AM EST documented as of this encounter Care Teams Fastener Sewing Machine Operator Relationship Specialty Start Date End Date Phyllis Skinner MD 230 [place] [address] PCP - General Internal Medicine 07/29/23 [facility] 05/23/24 documented as of this encounter
--- OUTSIDE RECORDS SUMMARY | 2024-07-27 14:35 | XMS_ITS | Encounter Summary ---
Author Organization [employer] Address [address] [place] [address] 7t [place] [address] Care Team Providers Care Edge Brusher Name Role Phone Phyllis Skinner MD Primary Care Pro vider Reason for Visit * Reason Onset Date Comments Medication Question 06/30/2024 Referral 06/30/2024 Encounter Details Date Type Department Care Team (Late st Contact Info) Description 06/30/2024 Telephone [facility] 230 [place] [address] Phyllis Skinner MD [address] [place], [place] [phone] Medication Question; Referral Social History Tobacco Use [...] for Zeshanound on file from 06/19/24, called [facility] pharmacy, PA went through, pt can pecan picker later today. Called pt to notify of this, [facility] verbalized understanding [facility]. Asked pt about referrals he called in about, pt asking for pulmonology referral due to ongoing right lung pain since 2019. Pt said that [facility] said he should see quality assurance tester, unclear why. No referral in chart, advised [...] as sleep medicine referral to be sentto [facility] if possible. Please contact pt at [phone]. (Romanian Speaker) documented in this encounter Plan of Treatment Upcoming Encounters Date Type Department Care Team (Late st Contact Info) Description 08/25/2024 1:30 PM EST Office Visit [facility] [address] [place], [place] [phone] Anil Gross CNP [address] [place], [place] [phone] documented as of this encounter Visit Diagnoses Not on filedocumented in this encounter Additional Health Concerns Assessment Noted Time PHQ-9 Depression Total Score: 17 024 11:12 AM EST documented as of this encounter Care Teams Edge Brusher Relationship Specialty Start Date End Date Phyllis Skinner MD [address] [place], [place] [phone] PCP - General Internal Medicine 07/29/23 [facility] 05/23/24 documented as of this encounter
--- OUTSIDE RECORDS SUMMARY | 2024-07-27 14:35 | XMS_ITS | Encounter Summary ---
Author Organization [employer] Address [address] [facility] 7t [place] [address] Care Team Providers Care Car Rental Agency Manager Name Role Phone Phyllis Skinner MD Primary Care Pro vider Reason for Visit * Reason Comments Care Coordination CHW outreach for SDO H PT-1 and food needs-referral completed Encounter Details Date Type Department Care Team (Latest Contact Info) Description 07/07/2024 Patient Outreach [facility] [address] [place] [address] Phyllis Skinner MD [address] [place] [address] Care Coordination (CHW outreach for SDOH PT-1 [...] send out in behalf of patient for [facility] appt. Patient verbalizes understandin g, and able to agree with plan to follow up. Patient educated on extended clinic hours on Mondays through Wednesdays, and Walk-In Urgent Care Located in [facility] of [facility]. Patient provided with after-hours line for [facility], , which offer night time triage service and option to transfer to television camera operator provider if needed. documented in this encounter Plan of Treatment Upcoming Encounters Date Type Department Care Team (Late st Contact Info) Description 08/25/2024 1:30 PM EST Office Visit [facility] [address] [place] [address] Anil Gross CNP [address] [place] [address] documented as of this encounter Visit Diagnoses Not on filedocumented in this encounter Additional Health Concerns Assessment Noted Time PHQ-9 Depression Total Score: 17 024 11:12 AM EST documented as of this encounter Care Teams Car Rental Agency Manager Relationship Specialty Start Date End Date Phyllis Skinner MD [address] [place] [address] PCP - General Internal Medicine 07/29/23 [facility] 05/23/24 documented as of this encounter
--- OUTSIDE RECORDS SUMMARY | 2024-07-27 14:35 | XMS_ITS | Encounter Summary ---
Author Organization [employer] Address [address] [facility] 7t [place] [address] Care Team Providers Care Director Of District Office Name Role Phone Phyllis Skinner MD Primary Care Pro vider Encounter Details Date Type Department Care Team (Late st Contact Info) Description 05/19/2024 Telephone [facility] [address] [place] [address] Phyllis Skinner MD [address] [place] [address] Social History Tobacco Use Types Packs/Day Years [...] Visit [facility] [address] [place] [address] Anil Gross CNP [address] [place] [address] documented as of this encounter Visit Diagnoses Not on filedocumented in this encounter Additional Health Concerns Assessment Noted Time PHQ-9 Depression Total Score: 17 024 9:10 AM EDT documented as of this encounter Care Teams Director Of District Office Relationship Specialty Start Date End Date Phyllis Skinner MD [address] [place] [address] PCP - General Internal Medicine 07/29/23 [facility] 05/23/24 documented as of this encounter
--- OUTSIDE RECORDS SUMMARY | 2024-07-27 14:35 | XMS_ITS | Encounter Summary ---
Author Organization [employer] Address [address] [facility] 7t [place] [address] Care Team Providers Care Oracle Soa Developer Name Role Phone Phyllis Skinner MD Primary Care Pro vider Reason for Visit * Reason Comments Care Coordination CHW outreach for SDO H PT-1 and food needs-referral completed Encounter Details Date Type Department Care Team (Latest Contact Info) Description 06/30/2024 Patient Outreach [facility] [address] [place] [address] Phyllis Skinner MD [address] [place] [address] Care Coordination (CHW outreach for SDOH PT-1 [...] Wednesdays, and Walk-In Urgent Care Located in [facility] of [facility]. Patient provided with after-hours line for [facility], , which offer night time triage service and option to transfer to non clinical advisor provider if needed. documented in this encounter Plan of Treatment Upcoming Encounters Date Type Department Care Team (Late st Contact Info) Description 08/25/2024 1:30 PM EST Office Visit [facility] [address] [place], [place] [phone] Anil Gross CNP [address] [place], [place] [phone] documented as of this encounter Visit Diagnoses Not on filedocumented in this encounter Additional Health Concerns Assessment Noted Time PHQ-9 Depression Total Score: 17 024 11:12 AM EST documented as of this encounter Care Teams Oracle Soa Developer Relationship Specialty Start Date End Date Phyllis Skinner MD [address] [place], [place] [phone] PCP - General Internal Medicine 07/29/23 [facility] 05/23/24 documented as of this encounter
--- OUTSIDE RECORDS SUMMARY | 2024-07-27 14:35 | XMS_ITS | Encounter Summary ---
Author Organization [employer] Address [address] [place] [address] 7t [place] [address] Care Team Providers Care Manager Entry Name Role Phone Phyllis Skinner MD Primary Care Pro vider Reason for Visit * Reason Onset Date Comments No Show 07/07/2024 Encounter Details Date Type Department Care Team (Late st Contact Info) Description 07/07/2024 Telephone [facility] [address] [place] [address] Phyllis Skinner MD [address] [place] [address] No Show Social History Tobacco Use Types [...] AM EST TC placed to pt via [employer] slack line yarder (Trinity ID#[id number]). Offered pt appointment today 07/07/24 at 12:00 PM on Red Team. Pt reports he is SOB at night when sleeping, but this is not a new symptom. He reports he has had lung pain and SOB when sleeping for several years. Pt unable to come today 07/07/24 due to transportation to [facility] as he walks. Pt rescheduled for appointment with Anil Gross on 07/26/24 at 11:15 AM. * Telephone Encounter - Chad Sultana - 07/07/2024 10:47 AM EST Tc from pt calling in regards to message prior requesting to reschedule sick onsite visit. Please contact pt at [phone]. (Swedish Speaker) * Telephone Encounter - Valeria Elvin - 07/07/2024 10:42 AM EST Patient no show to sick onsite appointment on 07/07/24 with Hailee Lr. documented in this encounter Plan of Treatment Upcoming Encounters Date Type Department Care Team (Late st Contact Info) Description 08/25/2024 1:30 PM EST Office Visit [facility] [address] [place] [address] Anil Gross CNP [address] [place], [place] [phone] documented as of this encounter Visit Diagnoses Not on filedocumented in this encounter Additional Health Concerns Assessment Noted Time PHQ-9 Depression Total Score: 17 024 11:12 AM EST documented as of this encounter Care Teams Manager Entry Relationship Specialty Start Date End Date Phyllis Skinner MD [address] [place] [address] PCP - General Internal Medicine 07/29/23 [facility] 05/23/24 documented as of this encounter
--- OUTSIDE RECORDS SUMMARY | 2024-07-27 14:35 | XMS_ITS | Clinical Summary ---
Author [facility] Address [address] [place] [address] Care Team Providers Care Medical Delivery Driver Name Role Phone Tim Wright MD Primary Care Provider Social History Tobacco Use Types Packs/Day Years [...] age to complete this topic Care Teams Medical Delivery Driver Relationship Specialty Start Date End Date Tim Wright MD [address] [place] [address] [id number] [place] [address] PCP - General Internal Medicine 11/18/17
--- OUTSIDE RECORDS SUMMARY | 2024-07-27 14:35 | XMS_ITS | Encounter Summary ---
Author Organization [employer] Address [address] [place] [address] 7t [place] [address] Care Team Providers Care Ingredient Scaler Name Role Phone Phyllis Skinner MD Primary Care Pro vider Reason for Visit * Reason Onset Date Comments PT1 12/06/2023 Encounter Details Date Type Department Care Team (Late st Contact Info) Description 12/06/2023 Telephone [facility]ICINE 230 [place] [address] Phyllis Skinner MD [address] [place] [address] PT1 Social History Tobacco Use Types Packs/Day [...] with others, in a hotel, in a prison, living outside on the street, on a [...] Y/N: Yes Provider [facility] Facility Address: [address] [place] [address] Escort needed: Y/N: No Do you have a wheelchair: Y/N: No If yes- Manual or electric: n/a Visits: 6 a year documented in this encounter Plan of Treatment Upcoming Encounters Date Type Department Care Team (Late st Contact Info) Description 08/25/2024 1:30 PM EST Office Visit [facility]ICINE [address] [place], [place] [phone] Anil Gross CNP [address] [place], [place] [phone] documented as of this encounter Visit Diagnoses Not on filedocumented in this encounter Additional Health Concerns Assessment Noted Time PHQ-9 Depression Total Score: 24 024 11:50 AM EST documented as of this encounter Care Teams Ingredient Scaler Relationship Specialty Start Date End Date Phyllis Skinner MD [address] [place] [address] PCP - General Internal Medicine 07/29/23 [facility] 05/23/24 documented as of this encounter
--- OUTSIDE RECORDS SUMMARY | 2024-07-27 14:35 | XMS_ITS | Encounter Summary ---
Author Organization [employer] Address [address] [place] [address] 7t [place] [address] Care Team Providers Care Vice President And Portfolio Manager Name Role Phone Phyllis Skinner MD Primary Care Pro vider Reason for Visit * Reason Onset Date Comments PT-1 06/30/2024 Encounter Details Date Type Department Care Team (Late st Contact Info) Description 06/30/2024 Telephone [facility]INE 230 [place] [address] Phyllis Skinner MD [address] [place] [address] PT-1 Social History Tobacco Use Types Packs/Day [...] with others, in a hotel, in a custodial, living outside on the street, on a [...] Y/N: Yes Provider name or facility name: [facility] Facility Address: [address] [place] [address] Escort needed: Y/N: Yes Do you have a wheelchair: Y/N: No (uses cane) If yes- Manual or electric: N/A Visits: 8 times monthly - Patient calling requesting PT1 Home Address verified: Y/N: Yes Provider name or facility name: [facility] Facility Address: [address] [place] [address] Escort needed: Y/N: Yes Do you have a wheelchair: Y/N: No If yes- Manual or electric: N/A Visits: 5 monthly documented in this encounter Plan of Treatment Upcoming Encounters Date Type Department Care Team (Late st Contact Info) Description 08/25/2024 1:30 PM EST Office Visit [facility]INE 230 [place] [address] Anil Gross CNP [address] [place] [address] documented as of this encounter Visit Diagnoses Not on filedocumented in this encounter Additional Health Concerns Assessment Noted Time PHQ-9 Depression Total Score: 17 024 11:12 AM EST documented as of this encounter Care Teams Vice President And Portfolio Manager Relationship Specialty Start Date End Date Phyllis Skinner MD [address] [place] [address] PCP - General Internal Medicine 07/29/23 [facility] 05/23/24 documented as of this encounter
--- OUTSIDE RECORDS SUMMARY | 2024-07-27 14:35 | XMS_ITS | Encounter Summary ---
Author Organization [employer] Address [address] [place] [address] 7t [place] [address] Care Team Providers Care Plant Engineering Supervisor Name Role Phone Phyllis Skinner MD Primary Care Pro vider Reason for Visit * Reason Onset Date Comments Chart Prep 07/11/2024 Encounter Details Date Type Department Care Team (Late st Contact Info) Description 07/11/2024 Telephone [facility] [address] [place] [address] Phyllis Skinner MD [address] [place] [address] Chart Prep Social History Tobacco Use Types [...] 1:30 PM EST Office Visit [facility] [address] [place] [address] Anil Gross CNP [address] [place] [address] documented as of this encounter Visit Diagnoses Not on filedocumented in this encounter Additional Health Concerns Assessment Noted Time PHQ-9 Depression Total Score: 17 024 11:12 AM EST documented as of this encounter Care Teams Plant Engineering Supervisor Relationship Specialty Start Date End Date Phyllis Skinner MD [address] [place] [address] PCP - General Internal Medicine 07/29/23 [facility] 05/23/24 documented as of this encounter
--- OUTSIDE RECORDS SUMMARY | 2024-07-27 14:35 | XMS_ITS | Encounter Summary ---
Author Organization [employer] Address [address] [place] [address] 7t [place] [address] Care Team Providers Care Police Booking Officer Name Role Phone Phyllis Skinner MD Primary Care Pro vider Reason for Visit * Reason Onset Date Comments T/C change PCP request 07/10/2024 Encounter Details Date Type Department Care Team (Late st Contact Info) Description 07/10/2024 Telephone [facility] MEDICINE 230 [place], [place] [phone] [facility] change PCP request Social History Tobacco [...] the past 12 months, has t he [employer], gas, oil or water company threatened to [...] Description 08/25/2024 1:30 PM EST Office Visit [facility]INE [address] [place], [place] [phone] Anil Gross CNP [address] [place] [address] documented as of this encounter Visit Diagnoses Not on filedocumented in this encounter Additional Health Concerns Assessment Noted Time PHQ-9 Depression Total Score: 17 024 11:12 AM EST documented as of this encounter Care Teams Police Booking Officer Relationship Specialty Start Date End Date Phyllis Skinner MD [address] [place] [address] PCP - General Internal Medicine 07/29/23 [facility] 05/23/24 documented as of this encounter
--- OUTSIDE RECORDS SUMMARY | 2024-07-27 14:35 | XMS_ITS | Clinical Summary ---
Author Organization [facility] Address [address] [place] [address] Care Team Providers Care Care Taker Name Role Phone Larisa Phillips [facility] Primary Care Provider [phone] Source Comments PLEASE NOTE, if this patient [...] stripsIndications: Type 2 diabetes mellitus without complication ([facility]) 1 Strip 2 (two) times daily [...] hr tabletIndications: Post-traumatic stress disorder,Bipolar II disorder ([facility]) Take 2 tabs by mouth daily at [...] Diagnosed Date Homelessness 08/18/2018 Bipolar 1 disorder ([facility]) 08/26/2017 Incisional hernia, without obstruction or gangre ne 03/16/2017 Overview (12/20/2017): Will plan for laparoscopic or DaVinci repair. Will need anticoagulation d/t morbid obesity. Post-traumatic stress disorder 12/22/2016 Alcohol use disorder, modera te, in early remission ([facility]) 12/22/2016 Anxiety and depression 10/13/2016 Insomnia secondary to depression with anxiety GERD (gastroesophageal reflux disease) 7 Vitamin D deficiency 09/06/2015 Morbid obesity with BMI of 50.0-59.9, adult ([facility]) 09/05/2015 Overview (03/02/2016): [facility] weight loss specialist appt 11/12/15. Type 2 diabetes mellitus without complication ([facility]) 09/05/2015 Osteoarthritis of knees, bilateral 09/05/2015 Overview (12/25/2015): Mild bilateral tri-compartmental OA both knee's via x-rays 09/16/15 at [facility] Bilateral low back pain with sciatica 09/05/2015 Overview (03/02/2016): Early multilevel degenerative bone spurring anterior lumbar spine via x-rays 09/16/15 at [facility]. Patient seen for PT 02/17/16 at [place] but d/c due to poor activity tolerance and limited motivation. They recommend referral [facility] comprehensive weight management program which I already did and he DNKA 11/12/15. 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
--- OUTSIDE RECORDS SUMMARY | 2024-07-27 14:35 | XMS_ITS | Encounter Summary ---
Author Organization [employer] Address [address] [place] [address] 7t [place] [address] Care Team Providers Care Assault Amphibious Vehicle Officer Name Role Phone Phyllis Skinner MD Primary Care Pro vider Reason for Visit * Reason Onset Date Comments PT-1 07/07/2024 Encounter Details Date Type Department Care Team (Late st Contact Info) Description 07/07/2024 Telephone [facility] MEDICINE [address] [place] [address] Phyllis Skinner MD [address] [place] [address] PT-1 Social History Tobacco Use Types Packs/Day [...] Y/N: Yes Provider name or facility name: [facility] Facility Address: [address] [place] [address] Escort needed: Y/N: No Do you have a wheelchair: Y/N: No If yes- Manual or electric: N/A (uses walker) Visits: 5 Monthly documented in this encounter Plan of Treatment Upcoming Encounters Date Type Department Care Team (Late st Contact Info) Description 08/25/2024 1:30 PM EST Office Visit [facility] MED[facility]INE [address] [place] [address] Anil Gross CNP [address] [place], [place] [phone] documented as of this encounter Visit Diagnoses Not on filedocumented in this encounter Additional Health Concerns Assessment Noted Time PHQ-9 Depression Total Score: 17 12/30/2 024 11:12 AM EST documented as of this encounter Care Teams Assault Amphibious Vehicle Officer Relationship Specialty Start Date End Date Phyllis Skinner MD [address] [place] [address] PCP - General Internal Medicine 07/29/23 [facility] 05/23/24 documented as of this encounter
--- OUTSIDE RECORDS SUMMARY | 2024-07-27 14:35 | XMS_ITS | Encounter Summary ---
Author Organization [employer] Address [address] [place] [address] 7t [place] [address] Care Team Providers Care Ethylbenzene Converter Helper Name Role Phone Phyllis Skinner MD Primary Care Pro vider Reason for Visit * Reason Onset Date Comments Referral 05/19/2024 Encounter Details Date Type Department Care Team (Late st Contact Info) Description 05/19/[address] [facility] MEDICINE [address] [place] [address] Phyllis Skinner MD [address] [place] [address] Referral Social History Tobacco Use Types Packs/Day [...] about referral for Psychiatrist. Contact pt at [phone] documented in this encounter Plan of Treatment Upcoming Encounters Date Type Department Care Team (Late st Contact Info) Description 08/25/2024 1:30 PM EST Office Visit [facility] MEDICINE [address] [place] [address] Anil Gross CNP [address] [place] [address] documented as of this encounter Visit Diagnoses Not on filedocumented in this encounter Additional Health Concerns Assessment Noted Time PHQ-9 Depression Total Score: 17 024 9:10 AM EDT documented as of this encounter Care Teams Ethylbenzene Converter Helper Relationship Specialty Start Date End Date Phyllis Skinner MD [address] [place] [address] PCP - General Internal Medicine 07/29/23 [facility] 05/23/24 documented as of this encounter
--- OUTSIDE RECORDS SUMMARY | 2024-07-27 14:35 | XMS_ITS | Encounter Summary ---
Author Organization [employer] Address [address] [place] [address] 7t [place] [address] Care Team Providers Care Aircraft Systems Technician Name Role Phone Phyllis Skinner MD Primary Care Pro vider Reason for Visit * Reason Onset Date Comments Change PCP 07/10/2024 Encounter Details Date Type Department Care Team (Late st Contact Info) Description 07/10/2024 Telephone [facility] [address] [place] [address] Phyllis Skinner MD [address] [place] [address] Change PCP Social History Tobacco Use Types [...] has not received. Please contact pt at [phone]. (Welsh Speaker) documented in this encounter Plan of Treatment Upcoming Encounters Date Type Department Care Team (Late st Contact Info) Description 08/25/2024 1:30 PM EST Office Visit [facility] [address] [place] [address] Anil Gross CNP [address] [place] [address] documented as of this encounter Visit Diagnoses Not on filedocumented in this encounter Additional Health Concerns Assessment Noted Time PHQ-9 Depression Total Score: 17 024 11:12 AM EST documented as of this encounter Care Teams Aircraft Systems Technician Relationship Specialty Start Date End Date Phyllis Skinner MD [address] [place] [address] PCP - General Internal Medicine 07/29/23 [facility] 05/23/24 documented as of this encounter
--- OUTSIDE RECORDS SUMMARY | 2024-07-27 14:35 | XMS_ITS | Encounter Summary ---
Author Organization [employer] Address [address] [place] [address] 7t [place] [address] Care Team Providers Care Maintenance Shop Manager Name Role Phone Phyllis Skinner MD Primary Care Pro vider Reason for Referral * Imaging (Routine) - Authorized Specialty Diagnoses / Procedures Referred By Parth garcia Referred To Contact Cardiology Diagnoses Chronic cough Edema, lower extremity Procedures Transthoracic Echo (TTE) Complete Anil Gross CNP [address] [place] [address] Phone: tel: fax: [address] Phone: tel: fax: Referral ID Status Reason Start Date Expiration Date Visits Requested Visits Authorized [id number] Authorized Perform Procedure 07/26/2024 07/26/2025 1 1 * Consultation (Routine) - Pending Review Specialty Diagnoses / Procedures Referred By Parth garcia Referred To Contact Sleep Medicine Diagnoses WARREN (obstructive sleep apnea) Anil Gross CNP [address] [place] [address] Phone: tel: fax: Referral ID Status Reason Start Date Expiration Date Visits Requested Visits Authorized [id number] Pending Review Specialty Services Required 07/26/2024 07/26/2025 1 1 * PFT (Routine) - Authorized Specialty Diagnoses / Procedures Referred By Parth garcia Referred To Contact Diagnoses Shortness of breath Procedures Pulmonary Function Test Anil Gross CNP [address] [place] [address] Phone: tel: fax: [address] Phone: tel: fax: Referral ID Status Reason Start Date Expiration Date V isits Requested Visits Authorized [id number] Authorized 07/26/2024 07/26/2025 1 1 Encounter Details Date Type Department Care Team (Late st Contact Info) Description 07/26/2024 11:15 AM EST Office Visit [facility] [address] [place] [phone] Anil Gross CNP [address] [place] [address] Shortness of breath (Primary Dx); WARREN (obstructive [...] the past 12 months, has t he [employer] gas, oil or water company threatened to [...] 08/25/2024 1:30 PM EST Office Visit [facility] [address] [place] [address] Anil Gross CNP [address] [place] [address] Scheduled Orders Name Type Priority Associated Diagnoses [...] B Type Natriuretic Peptide 148(H) <100 pg/mL [facility] Comment:For those patients w ho are being treated with Natrecor(nesiritide, recombinant BNP), BNP testing should beperformed at least two hours post treatment in order toensure that only endogenous levels of BNP are detected. Blood Venous blood specimen / Unknown 07/26/2024 11:45 AM EST 07/26/2024 1:25 PM EST [facility] LAB BLOOD ORDERABLES Albertina l Result [facility] [address] [place] [address] [phone] documented in this encounter Visit Diagnoses Diagnosis Shortness of breath- Primary WARREN (obstructive sleep apnea) Obstructive sleep apnea (adult) (pediatric) Chronic cough Cough Edema, lower extremity documented in this encounter Additional Health Concerns Assessment Noted Time PHQ-9 Depression Total Score: 17 024 11:12 AM EST documented as of this encounter Care Teams Maintenance Shop Manager Relationship Specialty Start Date End Date Phyllis Skinner MD [address] [place] [address] PCP - General Internal Medicine 07/29/23 [facility] 05/23/24 documented as of this encounter
== END 2024-07-26 10:49 | disposition home or self-care (01) ==
LOC: HO.HOSX 10:48
PROVIDERS: Visit Provider Physician Assistant
DX: M17.0 Bilateral primary osteoarthritis of knee (principal)
CPT/HCPCS: 20610; 73562; 99212; J1010; J2003

== ENCOUNTER 2024-07-26 11:41 | Outpatient (REF) | payer MEDICAID, SELFPAY ==
[2024-07-26 13:50] LABS: B Type Natriuretic Peptide 148 pg/mL (<100)
[2024-07-26 13:52] LABS: Hemoglobin 14.7 g/dl (14.0-18.0); Mean Corpuscular HGB Conc 34.2 g/dl (31.0-36.0); Mean Corpuscular Hemoglobin 30.4 pg (27.0-33.0); Mean Corpuscular Volume 88.8 fL (80.0-98.0); Mean Platelet Volume 9.8 fL (9.4-12.4); Platelet Count 166 X10*3/uL (160-400); Red Blood Count 4.84 X10*6/uL (4.60-5.80); Red Cell Distribution Width 14.4 % (11.0-16.0); White Blood Count 10.6 X10*3/uL (4.8-10.8)
--- OUTSIDE RECORDS SUMMARY | 2024-07-26 14:06 | XMS_ITS | Clinical Summary ---
Author Organization [facility] Address [address] [place] [address] Care Team Providers Care Biomass Plant Manager Name Role Phone Tim Wright MD Primary Care Provider [phone] Social History Tobacco Use Types Packs/Day Years Used Date Smoking Tobacco: Never Assessed Sex and Gender Information Value Date Recorded Sex Assigned at Not on file Gender Identity Not on file Sexual Orientation Not on file Plan of Treatment Health Maintenance Due Date Last Done Comments DTaP,Tdap,and Td Vaccines (1 - Tdap) 2002 Hepatitis B Vaccines (1 of 3 - 19+ 3-dose series) 2002 COVID-19 Vaccine (2023-2 5 season) 2024 Influenza Vaccine (#1) 2024 HIB Vaccines Aged Out No longer eligi ble based on patient's age to complete this topic HPV Vaccines Aged Out No longer eligi ble based on patient's age to complete this topic Hepatitis A Vaccines Aged Out No long er eligible based on patient's age to complete this topic IPV Vaccines Aged Out No longer eligi ble based on patient's age to complete this topic MMR Vaccines Aged Out No longer eligi ble based on patient's age to complete this topic Meningococcal ACWY Vaccine Aged Out N o longer eligible based on patient's age to complete this topic Pneumococcal Vaccine: Pediat rics (0 to 5 Years) and At-Risk Patients (6 to 64 Years) Aged Out No longer eligible b ased on patient's age to complete this topic RSV Immunization Patients Un marcos 20 months Aged Out No longer eligible b ased on patient's age to complete this topic Varicella Vaccines Aged Out No longer eligible based on patient's age to complete this topic Care Teams Biomass Plant Manager Relationship Specialty Start Date End Date Tim Wright MD [address] [place] [address] [id number] [place] [address] PCP - General Internal Medicine 11/18/17
--- OUTSIDE RECORDS SUMMARY | 2024-07-26 14:06 | XMS_ITS | Encounter Summary ---
Author Organization [employer] Address [address] [place] [address] 7t [place] [address] Care Team Providers Care Bilingual Operator Name Role Phone Phyllis Skinner MD Primary Care Pro vider Reason for Visit * Reason Onset Date Comments Referral 05/19/2024 Encounter Details Date Type Department Care Team (Late st Contact Info) Description 05/19/2024 Telephone [facility] [address] [place] [address] Phyllis Skinner MD [address] [place] [address] Referral Social History Tobacco Use Types Packs/Day Years Used Date Smoking Tobacco: Never Passive Smoke Exposure: Never Smokeless Tobacco: Never Alcohol Use Standard Drinks/Week Comments Yes 0 (1 standard drink = 0.6 oz pure alcohol) hx of heavy alcohol use now drinks twice a week-vodka 1/2 Bottle Depression Answer Date Recorded Patient Health Questionnaire-9 Score 17 03/01/2024 Patient Health Questionnaire-9 Score 17 03/01/2024 Last PHQ-9: Questionnaire Data Not on file 0 03/01/2024 Housing Stability Answer Date Recorded What is your housing situation today? I do not have housing (Staying with others, in a hotel, in a residential, living outside on the street, on a beach, in a car, or in a park 07/20/[address] you li ve. Do you have problems with any of the following? None of the above 07/20/2023 Food Insecurity Answer Date Recorded Within the past 12 months, y ou worried that your food would run out before you got money to buy more: Often true 07/20/2023 Within the past 12 months,th e food you bought just didn't last and you didn't have enough money to get more: Often true Transportation Answer Date Recorded In the past 12 months, has l ack of transportation kept you from medical appts, meetings, work or from getting things needed for daily living? Yes, it has kept me from medical appointments or getting medications. 07/20/2023 Utilities Answer Date Recorded In the past 12 months, has t he electric, gas, oil or water company threatened to shut off services in your home? No 07/20/2023 Depression Answer Date Recorded Patient Health Questionnaire-2 Score 4 03/01/2024 Sex and Gender Information Value Date Recorded Sex Assigned at Male 05/18/2023 10:34 AM EST Legal Sex Male 10:31 AM EST Gender Identity Male 05/18/2023 10:34 AM EST Sexual Orientation Straight 05/18/2023 10 :34 AM EST documented as of this encounter Miscellaneous Notes * Telephone Encounter - Larry Hardy - 05/19/2024 1:55 PM EST Tc from pt requesting a call back to talk about referral for Psychiatrist. Contact pt at [phone] documented in this encounter Plan of Treatment Upcoming Encounters Date Type Department Care Team (Late st Contact Info) Description 08/25/2024 1:30 PM EST Office Visit [facility] [address] [place] [address] Anil Gross CNP [address] [place] [address] documented as of this encounter Visit Diagnoses Not on filedocumented in this encounter Additional Health Concerns Assessment Noted Time PHQ-9 Depression Total Score: 17 024 9:10 AM EDT documented as of this encounter Care Teams Bilingual Operator Relationship Specialty Start Date End Date Phyllis Skinner MD [address] [place] [address] PCP - General Internal Medicine 07/29/23 [facility] 05/23/24 documented as of this encounter
--- OUTSIDE RECORDS SUMMARY | 2024-07-26 14:06 | XMS_ITS | Encounter Summary ---
Author Organization [employer] Address [address] [place] [address] 7t [place] [address] Care Team Providers Care Dial Lathe Operator Name Role Phone Phyllis Skinner MD Primary Care Pro vider Reason for Visit * Reason Onset Date Comments Chart Prep 07/11/2024 Encounter Details Date Type Department Care Team (Late st Contact Info) Description 07/11/2024 Telephone [facility] [address] [place] [address] Phyllis Skinner MD [address] [place] [address] Chart Prep Social History Tobacco Use Types Packs/Day Years Used Date Smoking Tobacco: Never Passive Smoke Exposure: Never Smokeless Tobacco: Never Alcohol Use Standard Drinks/Week Comments Yes 0 (1 standard drink = 0.6 oz pure alcohol) hx of heavy alcohol use now drinks twice a week-vodka 1/2 Bottle Depression Answer Date Recorded Patient Health Questionnaire-9 Score 17 06/26/2024 Patient Health Questionnaire-9 Score 17 06/26/2024 Last PHQ-9: Questionnaire Data Not on file 1 Housing Stability Answer Date Recorded What is your housing situation today? I do not have housing (Staying with others, in a hotel, in a group home, living outside on the street, on a [...] Answer Date Recorded Patient Health Questionnaire-2 Score 6 06/26/2024 Sex and Gender Information Value Date Recorded Sex Assigned at Male 05/18/2023 10:34 AM EST Legal Sex Male 10:31 AM EST Gender Identity Male 05/18/2023 10:34 AM EST Sexual Orientation Straight 05/18/2023 10 :34 AM EST documented as of this encounter Miscellaneous Notes * Telephone Encounter - Terry Curiel MA - 07/11/2024 1:42 PM EST Chart Prep Labs: not done Images: not done Vaccines due: yes PCV Flu Covid Hep B Referrals: pending appt Screenings: Foot Exam Sbrit Overdue care gaps: Glucose documented in this encounter Plan of Treatment Upcoming Encounters Date Type Department Care Team (Late st Contact Info) Description 08/25/2024 1:30 PM EST Office Visit [facility] [address] [place] [address] Anil Gross CNP [address] [place] [address] documented as of this encounter Visit Diagnoses Not on filedocumented in this encounter Additional Health Concerns Assessment Noted Time PHQ-9 Depression Total Score: 17 024 11:12 AM EST documented as of this encounter Care Teams Dial Lathe Operator Relationship Specialty Start Date End Date Phyllis Skinner MD [address] [place] [address] PCP - General Internal Medicine 07/29/23 [facility] 05/23/24 documented as of this encounter
--- OUTSIDE RECORDS SUMMARY | 2024-07-26 14:06 | XMS_ITS | Encounter Summary ---
Author Organization [employer] Address [address] [place] [address] 7t [place] [address] Care Team Providers Care Tier In Name Role Phone Phyllis Skinner MD Primary Care Pro vider Reason for Referral * Imaging (Routine) - Authorized Specialty Diagnoses / Procedures Referred By Parth garcia Referred To Contact Cardiology Diagnoses Chronic cough Edema, lower extremity Procedures Transthoracic Echo (TTE) Complete Anil Gross CNP [address] [place] [address] Phone: tel: fax: [address] Phone: tel: fax: Referral ID Status Reason Start Date Expiration Date Visits Requested Visits Authorized [id number] Authorized Perform Procedure 07/26/2024 07/26/2025 1 1 * Consultation (Routine) - Pending Review Specialty Diagnoses / Procedures Referred By Parth garcia Referred To Contact Sleep Medicine Diagnoses WARREN (obstructive sleep apnea) Anil Gross CNP [address] [place] [address] Phone: tel: fax: Referral ID Status Reason Start Date Expiration Date Visits Requested Visits Authorized [id number] Pending Review Specialty Services Required 07/26/2024 07/26/2025 1 1 * PFT (Routine) - Authorized Specialty Diagnoses / Procedures Referred By Parth garcia Referred To Contact Diagnoses Shortness of breath Procedures Pulmonary Function Test Anil Gross CNP [address] [place] [address] Phone: tel: fax: [address] Phone: tel: fax: Referral ID Status Reason Start Date Expiration Date V isits Requested Visits Authorized [id number] Authorized 07/26/2024 07/26/2025 1 1 Encounter Details Date Type Department Care Team (Late st Contact Info) Description 07/26/2024 11:15 AM EST Office Visit [facility] [address] [place] [address] Anil Gross CNP [address] [place] [address] Shortness of breath (Primary Dx); WARREN (obstructive sleep apnea); Chronic cough; Edema, lower extremity Social History Tobacco Use Types Packs/Day Years [...] with others, in a hotel, in a half-way, living outside on the street, on a [...] the past 12 months, has t he [employer], gas, oil or water company threatened to [...] AM EST documented as of this encounter Last Filed Vital Signs Vital Sign Reading Time Taken Comments Blood Pressure 127/83 07/26/2024 11:24 AM EST Pulse 82 07/26/2024 11:00 AM EST Temperature 36.3 ??C (97.4 ??F) 07/26/2024 11:[address] Respiratory Rate 16 07/26/2024 11:00 AM EST Oxygen Saturation 98% 07/26/2024 11:00 AM EST Inhaled Oxygen Concentration - - Weight 170 kg (374 lb 6.4 oz) 07/26/2024 11:00 A M EST Height 167.6 cm (5' 6 ) 07/26/2024 11:00 AM EST Body Mass Index 60.43 07/26/2024 11:00 AM EST documented in this encounter Miscellaneous Notes * Assessment & Plan Note - Anil Gross CNP - 07/26/2024 11:47 AM EST Associated Problem(s): Shortness of breath Pulmonary exam was wnl, no adventitious lung sounds noted. Will order BNP and echo today to r/o CHF Will order PFTs today to observe lung function Will order CXR today to r/o infectious etiology, malignancy, and Tb Will send albuterol inhaler to pharmacy to use prn for SOB * Assessment & Plan Note - Anil Gross CNP - 07/26/2024 11:46 AM EST Associated Problem(s): Chronic cough Pulmonary exam was wnl, no adventitious lung sounds noted. Will order BNP and echo today to r/o CHF Will order PFTs today to observe lung function Will order CXR today to r/o infectious etiology, malignancy, and Tb Will send albuterol inhaler to pharmacy to use prn for SOB * Assessment & Plan Note - Anil Gross CNP - 07/26/2024 11:43 AM EST Associated Problem(s): Edema, lower extremity Pt has a hx of lower edema, per PCP presumed to be related to venous/lymphatic etiology associated to morbid obesity , no concerning findings Pulmonary exam was wnl, no adventitious lung sounds noted. Will order BNP and echo today to r/o CHF * Assessment & Plan Note - Anil Gross CNP - 07/26/2024 11:42 AM EST Associated Problem(s): WARREN (obstructive sleep apnea) Will send referral for sleep study today for CPAP initiation documented in this encounter Plan of Treatment Upcoming Encounters Date Type Department Care Team (Late st Contact Info) Description 08/25/2024 1:30 PM EST Office Visit [facility] [address] [place] [address] Anil Gross CNP [address] [place] [address] Scheduled Orders Name Type Priority Associated Diagnoses Order Schedule Pulmonary Function Test PFT Routine Shortness of breath Expected: 07/26/2024, Expires: 01/23/2025 XR Chest 2 Views Imaging Routine Shortness of breath Expected: 07/26/2024, Expires: 07/26/2025 Transthoracic Echo (TTE) Complete Echocardiography Routine Chronic cough Edema, lower extremity Expected: 07/26/2024 (Approximate), Expires: 07/26/2026 Scheduled Referrals Name Type Priority Associated Diagnoses Orde r Schedule Referral to Sleep Medicine Outpatient Referral Routine WARREN (obstructive sleep apnea) Expected: 07/26/2024 (Approximate), Expires: 07/26/2025 documented as of this encounter Procedures Procedure Name Priority Date/Time Associated Diagnosis Comments B TYPE NATRIURETIC PEPTIDE (BNP) Routine 07/26/2024 11:45 AM EST Chronic cough Edema, lower extremity documented in this encounter Results * (ABNORMAL) B Type Natriuretic Peptide (BNP) (07/26/2024 11:45 AM EST) B Type Natriuretic Peptide 148(H) <100 pg/mL [facility] Comment:For those patients w ho are being treated with Natrecor(nesiritide, recombinant BNP), BNP testing should beperformed at least two hours post treatment in order toensure that only endogenous levels of BNP are detected. Blood Venous blood specimen / Unknown 07/26/2024 11:45 AM EST 07/26/2024 1:[address] [facility] LAB BLOOD ORDERABLES Albertina l Result [facility] [address] [place] [address] [phone] documented in this encounter Visit Diagnoses Diagnosis Shortness of breath- Primary WARREN (obstructive sleep apnea) Obstructive sleep apnea (adult) (pediatric) Chronic cough Cough Edema, lower extremity documented in this encounter Additional Health Concerns Assessment Noted Time PHQ-9 Depression Total Score: 17 024 11:12 AM EST documented as of this encounter Care Teams Tier In Relationship Specialty Start Date End Date Phyllis Skinner MD [address] [place] [address] PCP - General Internal Medicine 07/29/23 [facility] 05/23/24 documented as of this encounter
--- OUTSIDE RECORDS SUMMARY | 2024-07-26 14:06 | XMS_ITS | Clinical Summary ---
Author Organization [facility] Address [address] [place] [address] Care Team Providers Care Glue Bone Drier Name Role Phone Larisa Phillips [facility] Primary Care Provider [phone] Source Comments PLEASE NOTE, if this patient is a minor, it may be UNLAWFUL to discuss sensitive information that is contained in these records (such as FAMILY PLANNING, MENTAL HEALTH or SUBSTANCE ABUSE) with the minor patient's parent or other person without the patient's specific authorization.[facility] Allergies No known active allergies Medications blood sugar diagnostic (FREESTYLE TEST) stripsIndications: Type 2 diabetes mellitus without complication ([facility]) 1 Strip 2 (two) times daily as needed for high blood sugar. Freestyle lite test strips. 50 Each 11 6 Active blood-glucose meter (TRUE METRIX GLUCOSE METER) monitoring kit as needed for blood glucose monitoring. 1 Each 0 6 Active blood sugar diagnostic (TRUETEST TEST STRIPS) strips 1 Strip as needed for high blood sugar. 100 Each 1 6 Active divalproex (DEPAKOTE ER) 500 mg 24 hr tabletIndications: Post-traumatic stress disorder,Bipolar II disorder ([facility]) Take 2 tabs by mouth daily at bedtime. Swallow whole. Do not crush or chew. 60 Tab 1 8 Active lancets (TRUEPLUS LANCETS) 33 gauge Use as Directed 100 Each 1 8 Active omeprazole (PRILOSEC) [address] capsuleIndications :Gastroesophageal reflux disease, esophagitis presence not specified Take 1 Cap by mouth every morning before breakfast Do not crush or chew. 30 Cap 3 8 Active gabapentin (NEURONTIN) 400 mg capsuleIndications :Bilateral low back pain with sciatica, sciatica laterality unspecified, unspecified chronicity Take 1 Cap by mouth 4 (four) times daily Stop gabapentin 300 mg 120 Cap 1 8 Active cholecalciferol, vitamin D3, 2,000 unit capsuleIndications :Vitamin D deficiency Take 1 Cap by mouth once daily 90 Cap 3 8 Active acetaminophen (TYLENOL) 500 mg tabletIndications: Osteoarthritis of both knees, unspecified osteoarthritis type,Bilateral low back pain with sciatica, sciatica laterality unspecified, unspecified chronicity Take 2 Tabs by mouth every 6 (six) hours as needed for pain 120 Tab 1 8 Active Active Problems Problem Noted Date Diagnosed Date Homelessness 08/18/2018 Bipolar 1 disorder ([facility]) 08/26/2017 Incisional hernia, without obstruction or gangre ne 03/16/2017 Overview (12/20/2017): Will plan for laparoscopic or DaVinci repair. Will need anticoagulation d/t morbid obesity. Post-traumatic stress disorder 12/22/2016 Alcohol use disorder, modera te, in early remission ([facility]) 12/22/2016 Anxiety and depression 10/13/2016 Insomnia secondary to depression with anxiety GERD (gastroesophageal reflux disease) 7 Vitamin D deficiency 09/06/2015 Morbid obesity with BMI of 50.0-59.9, adult ([facility]) 09/05/2015 Overview (03/02/2016): [facility] weight loss specialist appt 11/12/15. Type 2 diabetes mellitus without complication ([facility]) 09/05/2015 Osteoarthritis of knees, bilateral 09/05/2015 Overview (12/25/2015): Mild bilateral tri-compartmental OA both knee's via x-rays 09/16/15 at [facility] Bilateral low back pain with sciatica 09/05/2015 Overview (03/02/2016): Early multilevel degenerative bone spurring anterior lumbar spine via x-rays 09/16/15 at [facility]. Patient seen for PT 02/17/16 at [facility] but d/c due to poor activity tolerance and limited motivation. They recommend referral [facility] comprehensive weight management program which I already did and he DNKA 11/12/15. 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 12/22/2016 Immunizations Name Administration Dates Next Due PNEUMOCOCCAL CONJUGATE PCV 13 11/11/2017 TDAP 11/11/2017 Social History Tobacco Use Types Packs/Day Years Used Date Smoking Tobacco: Never Smokeless Tobacco: Never Alcohol Use Standard Drinks/Week Comments Yes 0 (1 standard drink = 0.6 oz pur e alcohol) sometimes Social Connections Answer Date Recorded Social Connections and Isolation 0 02/19/2019 Financial Resource Strain Answer Date R ecorded Financial Resource Strain 0 2018 Stress Answer Date Recorded Stress 0 02/19/2019 Physical Activity Answer Date Recorded Physical Activity 0 02/19/2019 Food Insecurity Answer Date Recorded Food 0 02/19/2019 Transportation Needs Answer Date Record ed Transportation 0 02/19/2019 Housing Stability Answer Date Recorded Housing 0 02/19/2019 Safety and Environment Answer Date Darrell rded Safety 0 02/19/2019 Utilities Answer Date Recorded Utilities 0 02/19/2019 Employment Answer Date Recorded Employment 0 02/19/2019 Sex and Gender Information Value Date Recorded Sex Assigned at Male 11/11/2016 9:30 AM PDT Legal Sex Male 1:02 PM PST Gender Identity Male 11/11/2016 9:30 AM PDT Sexual Orientation Straight 11/11/2016 9: 30 AM PDT Occupation Industry Job Start Date Job End Date unemployed Not on file Not on file Not on file Last Filed Vital Signs Vital Sign Reading Time Taken Comments Blood Pressure 122/82 11/11/2017 10:13 AM EDT Pulse 80 11/11/2017 10:13 AM EDT Temperature 36.7 ??C (98 ??F) 11/11/2017 10:13 AM EDT Respiratory Rate 20 11/11/2017 10:13 AM EDT Oxygen Saturation 98% 09/30/2016 10:09 AM EDT Inhaled Oxygen Concentration - - Weight 158.8 kg (350 lb) 11/11/2017 10:13 AM EDT Height 167.6 cm (5' 6 ) 11/11/2017 10:13 AM EDT Body Mass Index 56.49 11/11/2017 10:13 AM EDT Plan of Treatment Not on file Insurance [facility] Care Teams Glue Bone Drier Relationship Specialty Start Date End Date Larisa Phillips FNP [address] [place] [address] PCP - General 01/09/19
--- OUTSIDE RECORDS SUMMARY | 2024-07-26 14:06 | XMS_ITS | Encounter Summary ---
Author Organization [employer] Address [address] [facility] 7t [place] [address] Care Team Providers Care Hollow Ware Maker Name Role Phone Phyllis Skinner MD Primary Care Pro vider Reason for Visit * Reason Comments Care Coordination CHW outreach for SDO H PT-1 and food needs-referral completed Encounter Details Date Type Department Care Team (Latest Contact Info) Description 07/07/2024 Patient Outreach [facility] [address] [place] [address] Phyllis Skinner MD [address] [place] [address] Care Coordination (CHW outreach for SDOH PT-1 and food needs-referral completed /) Social History Tobacco Use Types Packs/Day Years [...] with others, in a hotel, in a care home, living outside on the street, on [...] AM EST documented as of this encounter Progress Notes * Brian Orta - 07/07/2024 11:22 AM EST CHW Brian Orta, placed outbound call to patient for assistance with SDOH as a referral was received by the provider. Patient's name and were confirmed. Patient screened positive for the following SDOH food insecurities. CHW referral patient to the local list of pantries in the area for help. PT-1 requested was send out in behalf of patient for [facility] appt. Patient verbalizes understandin g, and able to agree with plan to follow up. Patient educated on extended clinic hours on Mondays through Wednesdays, and Walk-In Urgent Care Located in [facility]. Patient provided with after-hours line for [facility], , which offer night time triage service and option to transfer to vice president of talent acquisition provider if needed. documented in this encounter Plan of Treatment Upcoming Encounters Date Type Department Care Team (Late st Contact Info) Description 08/25/2024 1:30 PM EST Office Visit [facility] [address] [place] [address] Anil Gross CNP [address] [place] [address] documented as of this encounter Visit Diagnoses Not on filedocumented in this encounter Additional Health Concerns Assessment Noted Time PHQ-9 Depression Total Score: 17 024 11:12 AM EST documented as of this encounter Care Teams Hollow Ware Maker Relationship Specialty Start Date End Date Phyllis Skinner MD [address] [place] [address] PCP - General Internal Medicine 07/29/23 [facility] 05/23/24 documented as of this encounter
--- OUTSIDE RECORDS SUMMARY | 2024-07-26 14:06 | XMS_ITS | Encounter Summary ---
Author Organization [employer] Address [address] [facility] 7t [place] [address] Care Team Providers Care Doweler Name Role Phone Phyllis Skinner MD Primary Care Pro vider Encounter Details Date Type Department Care Team (Latest Contact Info) Description 07/26/2024 Travel Social History Tobacco Use Types Packs/Day Years [...] with others, in a hotel, in a fdc, living outside on the street, on a [...] AM EST documented as of this encounter Plan of Treatment Upcoming Encounters Date Type Department Care Team (Late st Contact Info) Description 08/25/2024 1:30 PM EST Office Visit [facility] [address] [place] [address] Anil Gross CNP [address] [place] [address] documented as of this encounter Visit Diagnoses Not on filedocumented in this encounter Additional Health Concerns Assessment Noted Time PHQ-9 Depression Total Score: 17 024 11:12 AM EST documented as of this encounter Care Teams Doweler Relationship Specialty Start Date End Date Phyllis Skinner MD [address] [place] [address] PCP - General Internal Medicine 07/29/23 [facility] 05/23/24 documented as of this encounter
--- OUTSIDE RECORDS SUMMARY | 2024-07-26 14:06 | XMS_ITS | Encounter Summary ---
Author Organization [employer] Address [address] [place] [address] 7t [place] [address] Care Team Providers Care Early Years Teacher Name Role Phone Phyllis Skinner MD Primary Care Pro vider Reason for Visit * Reason Onset Date Comments T/C change PCP request 07/10/2024 Encounter Details Date Type Department Care Team (Late st Contact Info) Description 07/10/2024 Telephone [facility] [address] [place], [place] [phone] [facility] change PCP request Social History Tobacco Use Types Packs/Day Years [...] with others, in a hotel, in a retirement, living outside on the street, on a [...] the past 12 months, has t he [employer], gas, oil or water company threatened to [...] encounter Miscellaneous Notes * Telephone Encounter - Nehemiah Santana MA - 07/10/2024 3:11 PM EST T/C to pt regarding change PCP request. Pt stated he wants change PCP because he is DM and doctor is not giving him any meds for that and that he had request some test and PCP haven't order them. Pt have a lab order that haven't done yet. Pt have an upcoming appt on 07/26/24. I will f/u with pt on 07/26/24 appt regarding the change of PCP. documented in this encounter Plan of Treatment Upcoming Encounters Date Type Department Care Team (Late st Contact Info) Description 08/25/2024 1:30 PM EST Office Visit [facility] [address] [place], [place] [phone] Anil Gross CNP [address] [place] [address] documented as of this encounter Visit Diagnoses Not on filedocumented in this encounter Additional Health Concerns Assessment Noted Time PHQ-9 Depression Total Score: 17 024 11:12 AM EST documented as of this encounter Care Teams Early Years Teacher Relationship Specialty Start Date End Date Phyllis Skinner MD [address] [place] [id number] PCP - General Internal Medicine 07/29/23 [facility] 05/23/24 documented as of this encounter
--- OUTSIDE RECORDS SUMMARY | 2024-07-26 14:06 | XMS_ITS | Encounter Summary ---
Author Organization [employer] Address [address] [place] [address] Care Team Providers Care Web Interface Developer Name Role Phone Phyllis Skinner MD Primary Care Pro vider Encounter Details Date Type Department Care Team (Late st Contact Info) Description 05/19/2024 Telephone [facility] [address] [place] [address] Phyllis Skinner MD [address] [place] [address] Social History Tobacco Use Types Packs/Day Years [...] with others, in a hotel, in a [facility], living outside on the street, on a [...] Description 08/25/2024 1:30 PM EST Office Visit [facility] [address] [place] [address] Anil Gross CNP [address] [place] [address] documented as of this encounter Visit Diagnoses Not on filedocumented in this encounter Additional Health Concerns Assessment Noted Time PHQ-9 Depression Total Score: 17 024 9:10 AM EDT documented as of this encounter Care Teams Web Interface Developer Relationship Specialty Start Date End Date Phyllis Skinner MD [address] [place] [address] PCP - General Internal Medicine 07/29/23 [facility] 05/23/24 documented as of this encounter
--- OUTSIDE RECORDS SUMMARY | 2024-07-26 14:06 | XMS_ITS | Clinical Summary ---
Author Organization [employer] Address [address] [place] [address] [address] [place] [address] Care Team Providers Care Industrial Truck Driver Name Role Phone Phyllis Skinner MD Primary Care Pro vider Allergies No known active allergies Medications * This document contains information received from the source organization and may not represent a complete record from that organization. Blood Pressure kit Check blood pressure once a day 1 kit 3 Active ammonium lactate (Lac-Hydrin) 12 % cream Apply topically if needed for dry skin. 140 g 2 4 01/07/20 25 Active sodium chloride (Telford) 0.65 % nasal sprayIndications :Epistaxis Administer 1 spray into each nostril if needed for congestion. 15 mL 3 4 01/26/20 25 Active Multiple Vitamin (Multivitamin) tablet Take 1 tablet by mouth in the morning. 90 tablet 1 4 Active ergocalciferol (Vitamin D2) 1.25 MG (34612 UT) capsule Take 1 capsule (1.25 mg) by mouth 1 (one) time per week. 12 capsule 1 4 Active losartan (Cozaar) 25 MG tabletIndication s:Primary hypertension Take 1 tablet (25 mg) by mouth Once per day. 90 tablet 4 Active amLODIPine (Norvasc) 10 MG tablet Take 1 tablet (10 mg) by mouth Once per day. 90 tablet 4 Active atorvastatin (Lipitor) 20 MG tablet Take 1 tablet (20 mg) by mouth Once per day. 90 tablet 4 Active lidocaine (Lidoderm) 5 % patch APPLY 1 PATCH TOPICALLY TO SKIN IN THE MORNING. LEAVE ON FOR 12 HOURS AND OFF FOR 12 HOURS DIRECTED 30 patch 2 4 Active paliperidone (Invega) 3 MG 24 hr tabletIndication s:Schizoaffectiv e disorder, depressive type (CMS/HCC) Take 1 tablet (3 mg) by mouth in the morning. Do not crush, chew, or split. 30 tablet 1 5 09/05/19 25 Active escitalopram (Lexapro) 5 MG tabletIndication s:JULIÁN (generalized anxiety disorder) Take 1 tablet (5 mg) by mouth in the morning. 30 tablet 1 5 09/05/19 25 Active hydrOXYzine pamoate (Vistaril) 25 MG capsuleIndicatio ns:JULIÁN (generalized anxiety disorder) Take 1 capsule (25 mg) by mouth if needed at bedtime for anxiety. 30 capsule 1 5 09/05/19 25 Active albuterol 108 (90 Base) MCG/ACT inhalerIndicatio ns:Shortness of breath Inhale 2 puffs every 4 (four) hours if needed for wheezing. 18 g 5 07/26/19 26 Active Spacer/Aero-Hold ing Chambers deviceIndication s:Shortness of breath 1 Units Once per day. 1 Units 5 Active Tirzepatide-Weig ht Management 2.5 MG/0.5ML solution auto-injector Inject 0.5 mL (2.5 mg) under the skin 1 (one) time per week. 2 mL 1 4 07/15/19 25 Active Problems Problem Noted Date Diagnosed Date Shortness of breath 07/26/2024 Assessment & Plan (07/26/2024 11:47 AM EST): Pulmonary exam was wnl, no adventitious lung sounds noted. Will order BNP and echo today to r/o CHF Will order PFTs today to observe lung function Will order CXR today to r/o infectious etiology, malignancy, and Tb Will send albuterol inhaler to pharmacy to use prn for SOB Chronic cough 07/26/2024 Assessment & Plan (07/26/2024 11:46 AM EST): Pulmonary exam was wnl, no adventitious lung sounds noted. Will order BNP and echo today to r/o CHF Will order PFTs today to observe lung function Will order CXR today to r/o infectious etiology, malignancy, and Tb Will send albuterol inhaler to pharmacy to use prn for SOB Edema, lower extremity 07/26/2024 Assessment & Plan (07/26/2024 11:44 AM EST): Pt has a hx of lower edema, per PCP presumed to be related to venous/lymphatic etiology associated to morbid obesity , no concerning findings Pulmonary exam was wnl, no adventitious lung sounds noted. Will order BNP and echo today to r/o CHF LAFB (left anterior fascicular block) 01/26/2024 Housing insecurity 01/26/2024 Assessment & Plan (02/01/2024 3:16 PM EDT): During IBH Consult Yazan presenting with excessive worry/anxiety, difficulty controlling worry, restless/keyed up/On edge, easily fatigued, difficulty concentrating/Mind going blank , irritability, muscle tension, and sleep disturbance difficulty falling asleep and difficulty staying asleep and hearing voices and seeing shadows. Voices are not commanding, but seems as if many people are around him with a frequency of 5 out of 7 days; for a period of 18+ mo, for all symptoms in the context of family issues, financial concern, illness or family illness, employment concern, and housing. Yazan carries a diagnosis of schizoaffective disorder per his medical record. He reports having auditory hallucinations with no commands. He's currently living with his sister, but feels lonely and reports the lack of family support is impacting his life negatively. Aware of importance of using coping skills, however, due to intensity of sxs he's unable to put it into practice. Family hx of mental health disorders- schizophrenia and depression. During today's session Yazan was provided with a safe space to share his concerns and emotions. Reviewed and assessed for risk, current stressors and protective factors using open-ended questions. Provided information for [facility]- crisis numbers and [facility] help line. I will referred pt for IP therapy and psychopharmacology, Yazan also agreed to do referral for CM to assist with transportation and housing insecurities. clinician will provide follow-up BE per patient's request to assess sxs and provide additional support. PLAN: (check all that apply) New/Additional Services needed Off-site services for Behavioral Health Integration Plan Internal Follow up with [facility] External OP therapy referral and OP psychiatry Referral Patient Self Plan Patient to utilize skills provided in intervention , Patient to reach out to [facility] team as needed, Comply with medication , Patient to engage in OP therapy , and Patient to reach out to [facility] as needed Vitamin D deficiency 11/26/2023 Lower abdominal pain 11/26/2023 Leukocytosis 11/26/2023 HLD (hyperlipidemia) 11/26/2023 JULIÁN (generalized anxiety disorder) 08/02/2023 Assessment & Plan (05/30/2024 11:57 AM EST): During IB Consult Yazan presenting with excessive worry/anxiety, difficulty controlling worry, anxiety/worry associated to restlessness and/or feeling keyed-up/On edge , easily fatigued , difficulty concentrating and/or mind going blank , irritability, muscle tension , and sleep disturbance difficulty falling asleep and difficulty staying asleep , Fear , and sense of dread , hearing voices and seeing shadows. Voices are not commanding, but seems as if many people are around him with a frequency of 5 out of 7 days ; for a period of 18+ mo, for most or all symptoms in the context of financial concern, illness or family illness, housing, and chronic mental health condition untreated. Yazan carries a diagnosis of schizoaffective disorder per his medical record. He reports having auditory hallucinations with no commands. He's currently living with his sister, but feels lonely and reports the lack of family support is impacting his life negatively. His medical condition is also a trigger for symptoms. Yazan reported being on medication back in 2018 and having positive feedback/improvement from treatment. Unable to engage with last referral for [facility] in [place]. Pt identifies listening to music as a relaxing coping strategy. During today's session Yazan was provided with a safe space to share his concerns and emotions. Reviewed and assessed for risk, current stressors and protective factors using open-ended questions. Pt will be referred to psych with Chase Guzm[facility] and [facility] for OP therapy. clinician will be available during next medical appointment to provide additional support. Assessment & Plan (02/01/2024 3:16 PM EDT): During IBH Consult Yazan presenting with excessive worry/anxiety, difficulty controlling worry, restless/keyed up/On edge, easily fatigued, difficulty concentrating/Mind going blank , irritability, muscle tension, and sleep disturbance difficulty falling asleep and difficulty staying asleep and hearing voices and seeing shadows. Voices are not commanding, but seems as if many people are around him with a frequency of 5 out of 7 days; for a period of 18+ mo, for all symptoms in the context of family issues, financial concern, illness or family illness, employment concern, and housing. Yazan carries a diagnosis of schizoaffective disorder per his medical record. He reports having auditory hallucinations with no commands. He's currently living with his sister, but feels lonely and reports the lack of family support is impacting his life negatively. Aware of importance of using coping skills, however, due to intensity of sxs he's unable to put it into practice. Family hx of mental health disorders- schizophrenia and depression. During today's session Yazan was provided with a safe space to share his concerns and emotions. Reviewed and assessed for risk, current stressors and protective factors using open-ended questions. Provided information for CB- crisis numbers and [facility] help line. I will referred pt for IP therapy and psychopharmacology, Yazan also agreed to do referral for CM to assist with transportation and housing insecurities. clinician will provide follow-up BE per patient's request to assess sxs and provide additional support. PLAN: (check all that apply) New/Additional Services needed Off-site services for Behavioral Health Integration Plan Internal Follow up with [facility] External OP therapy referral and OP psychiatry Referral Patient Self Plan Patient to utilize skills provided in intervention , Patient to reach out to [facility] team as needed, Comply with medication , Patient to engage in OP therapy , and Patient to reach out to [facility] as needed Lower extremity edema 07/30/2023 Back pain 07/30/2023 Health care maintenance 07/30/2023 Type 2 diabetes mellitus wit h hyperglycemia, without long-term current use of insulin 05/18/2023 Primary hypertension 05/18/2023 Morbid obesity 05/18/2023 Auditory hallucination 05/18/2023 Schizoaffective disorder, depressive type 2022 Assessment & Plan (02/01/2024 3:16 PM EDT): During IBH Consult Yazan presenting with excessive worry/anxiety, difficulty controlling worry, restless/keyed up/On edge, easily fatigued, difficulty concentrating/Mind going blank , irritability, muscle tension, and sleep disturbance difficulty falling asleep and difficulty staying asleep and hearing voices and seeing shadows. Voices are not commanding, but seems as if many people are around him with a frequency of 5 out of 7 days; for a period of 18+ mo, for all symptoms in the context of family issues, financial concern, illness or family illness, employment concern, and housing. Yazan carries a diagnosis of schizoaffective disorder per his medical record. He reports having auditory hallucinations with no commands. He's currently living with his sister, but feels lonely and reports the lack of family support is impacting his life negatively. Aware of importance of using coping skills, however, due to intensity of sxs he's unable to put it into practice. Family hx of mental health disorders- schizophrenia and depression. During today's session Yazan was provided with a safe space to share his concerns and emotions. Reviewed and assessed for risk, current stressors and protective factors using open-ended questions. Provided information for [facility]- crisis numbers and [facility] help line. I will referred pt for IP therapy and psychopharmacology, Yazan also agreed to do referral for CM to assist with transportation and housing insecurities. clinician will provide follow-up BE per patient's request to assess sxs and provide additional support. PLAN: (check all that apply) New/Additional Services needed Off-site services for Behavioral Health Integration Plan Internal Follow up with [facility] External OP BH therapy referral and OP psychiatry Referral Patient Self Plan Patient to utilize skills provided in intervention , Patient to reach out to [facility] team as needed, Comply with medication , Patient to engage in OP therapy , and Patient to reach out to [facility] as needed Assessment & Plan (05/24/2023 1:22 PM EST): Yazan reports hearing voices, seeing shadows and leprechauns. Voices are not commanding, but seems as if many people are around him. Yazan also reports anhedoina, feeling depressed, sleep disturbance, lack of energy, poor appetite, guilt, concentration issues, moving slower, and passive. He also reports nervousness, difficulting controlling worries, worrying about many different things, difficulties relaxing, restlessness, irritable, and fearfulness. He reports alcohol is often taken in larger amounts, there is a persistent desire or unsuccessful efforts to cut down or control alcohol use, craving, or a strong desire or urge to use alcohol, alcohol use is continued despite knowledge of having a persistent or recurrent physical or psychological problem that is likely to have been caused or exacerbated by alcohol. Yazan agrees to expect [facility] phone call with appointment. I will put in the referral for AUD appointment. At this time, Yazan declined follow up BE's as he would like to schedule with residential therapist. I provided my information, and he agrees to contact me if needed. I also provided him with the number for [facility] crisis. At this time Yazan Stallings meets criteria for Visit Diagnoses: Problem List Items Addressed This Visit Other Auditory hallucination Schizoaffective disorder, depressive type (CMS/HCC) Alcohol use disorder Patient ready to address current needs Yes Strengths include willingness to engage, coping skills and support system. Alcoholism 05/18/2023 WARREN (obstructive sleep apnea) 05/18/2023 Assessment & Plan (07/26/2024 11:42 AM EST): Will send referral for sleep study today for CPAP initiation Encounters * This document contains information received from the source organization and may not represent a complete record from that organization. Date Type Department Care Team Description 07/26/2024 11:15 AM EST Office Visit [facility] [address] [place] [address] Anil Gross CNP Shortness of breath (Primary Dx); WARREN (obstructive sleep apnea); Chronic cough; Edema, lower extremity 07/26/2024 Travel 07/11/2024 Telephone [facility] [address] [place] [address] Phyllis Skinner MD Chart Prep 07/10/2024 Telephone [facility] [address] [place] [phone] Nehemiah Santana MA T/C change PCP request 07/10/2024 Telephone [facility] [address] [place] [phone] Phyllis Skinner MD Change PCP 07/07/2024 Patient Outreach [facility] [address] [place] [phone] Phyllis Skinner MD Care Coordination ([facility] outreach for SDOH PT-1 and food needs-referral completed /) 07/07/2024 Telephone [facility] [address] [place] [phone] Phyllis Skinner MD No Show 07/07/2024 Telephone [facility] [address] [place] [address] [phone] Phyllis Skinner MD PT-1 07/05/2024 Telephone [facility] [address] [place] [address] [phone] Bertha Cook MA Chart Prep 07/04/2024 Telephone [facility] [address] [place] [address] [phone] Phyllis Skinner MD Referral 06/30/2024 Patient Outreach [address] [phone] Phyllis Skinner MD Care Coordination ([facility] outreach for SDOH PT-1 and food needs-referral completed /) 06/30/2024 Telephone [facility] [address] [place] [phone] Phyllis Skinner MD Medication Question; Referral 06/30/2024 Telephone [facility] [address] [place] [address] [phone] Phyllis Skinner MD PT-1 06/16/2024 Telephone [facility] [address] [place] [address] [phone] Irasema Carmona, wire coiler 06/12/2024 Telephone [facility] [address] [place] [address] [phone] Brina Maria RNwire coiler (Denise MANJARREZ denied) 06/07/2024 Telephone [facility] [address] [place] [address] [phone] Radha Kang RNwire coiler (Denise MANJARREZ ) 05/26/2024 Refill [facility] [address] [place] [address] [phone] Phyllis Skinner MD 05/19/2024 Telephone [facility] [address] [place] [address] [phone] Phyllis Skinner MD Referral 05/19/2024 Telephone [facility] [address] [place] [address] [phone] Phyllis Skinner MD 05/11/2024 Telephone [facility] [address] [place] [address] [phone] Lindsay Blevins RN Home PT referral 05/10/2024 2:00 PM EST Office Visit [facility] [address] [place] [phone] Phyllis Skinner MD WARREN (obstructive sleep apnea) (Primary Dx); Type 2 diabetes mellitus with hyperglycemia, without long-term current use of insulin ([facility]); Primary hypertension; Morbid obesity ([facility]); Alcoholism ([facility]); Auditory hallucination; JULIÁN (generalized anxiety disorder); Health care maintenance; Hyperlipidemia, unspecified hyperlipidemia type; Schizoaffective disorder, depressive type ([facility]/HCC) 05/10/2024 Travel 05/08/2024 Telephone [facility] [address] [place] [phone] Suzie Thao MA chart prep 05/05/2024 Telephone [facility] [address] [place] [phone] Phyllis Skinner MD Prior Authorization ( PA: Denise) 05/03/2024 Refill [facility] [address] [place] [phone] Phyllis Skinner MD Primary hypertension from Last 3 Months Immunizations Name Administration Dates Next Due Hep B, adult 01/26/2024,11/26/2023 Influenza injectable quadrivalent preservative f ree 07/29/2023 Pfizer Covid-19 Vaccine 12+ 07/29/2023 Pneumococcal Conjugate PCV 13 11/11/2017 Tdap 11/11/2017 Family History Medical History Relation Name Comments lung ca-smoker Father Arthritis Maternal Grandfather Colon cancer Maternal Grandfather DM2 Mother Heart disease Mother Rheum arthritis Mother Colon cancer Paternal Grandfather Relation Name Status Comments Father Maternal Grandfather Mother Paternal Grandfather Social History Tobacco Use Types Packs/Day Years Used Date Smoking Tobacco: Never Passive Smoke Exposure: Never Smokeless Tobacco: Never Tobacco Cessation:Counseling Given: Not Answered Alcohol Use Standard Drinks/Week Comments Yes 0 [...] with others, in a hotel, in a correction, living outside on the street, on a [...] Orientation Straight 05/18/2023 10 :34 AM EST Last Filed Vital Signs Vital Sign Reading [...] Mass Index 60.43 07/26/2024 11:00 AM EST Plan of Treatment Upcoming Encounters Date Type Department Care Team (Late st Contact Info) Description 08/25/2024 1:30 PM EST Office Visit [facility] [address] [place] [phone] Anil Gross, PIERCING ARTIST [address] [place], [place] [phone] Health Maintenance Due Date Last Done Comments Diabetes: Foot Exam 1993 Family Planning (PISQ) 1998 Pneumococcal Vaccine: Pediatrics (0 to 5 Years) and At-Risk Patients (6 to 49) Years) (2 of 2 - PPSV23) 01/06/2018 11/11/2017 COVID-19 Vaccine (2 - season) 2024 07/29/2023 Influenza Vaccine (#1) 2024 07/29/2023 Hepatitis B Vaccines (3 of 3 - 19+ 3-dose series) 05/27/2024 01/26/2024, 11/26/2023 SDOH Screening 07/20/2024 07/20/2023 Diabetes: Hemoglobin A1C 11/07/202405/10/2 024, 05/09/2024, 09/15/2023, Additional history exists Depression Monitoring (PHQ-9) 12/25/2024 06/26/2024, 06/26/2024 Diabetes: Urine Protein Screening 05/09/2025 05/09/2024, 09/15/2023, 05/25/2023 Lipid Panel 05/09/2025 05/09/2024, 09/15/2023 Depression Screening 06/26/2025 06/26/2024, 06/26/20 Alcohol/Substance Use Screening 07/26/2025 07/26/2024 Tobacco Screening 07/26/2025 07/26/2024 Eye Exam 11/24/2025 11/25/2023, 10/28, 11/25/2023, Additional history exists DTaP/Tdap/Td Vaccines (2 - Td or Tdap) 11/12/2027 11/11/2017 Zoster Vaccines (1 of 2) 2033 RSV Patients and Patients Aged 60 years or older (1 - 1-dose 75+ series) 2058 HIV Screening Completed 09/15/2023 Hepatitis C Screening Completed 09/15/2023 HIB Vaccines Aged Out No longer eligi [...] patient's age to complete this topic Meningococcal Vaccine Aged Out No joyce eriberto eligible based on patient's age to complete this topic RSV under 20 months Aged Out No longe r eligible based on patient's age to complete this topic Rotavirus Vaccines Aged Out No longer eligible based on patient's age to complete this topic Procedures Procedure Name Priority Date/Time Associated Diagnosis Comments B TYPE NATRIURETIC PEPTIDE (BNP) Routine 07/26/2024 11:45 AM EST Chronic cough Edema, lower extremity CBC Routine 07/26/2024 11:45 AM EST Type 2 diabetes mellitus with hyperglycemia, without long-term current use of insulin ([facility]) POCT GLYCATED HEMOGLOBIN, TOTAL Routine 05/10/2024 2:29 PM EST Type 2 diabetes mellitus with hyperglycemia, without long-term current use of insulin (CMS/HCC) POCT GLUCOSE Routine 05/10/2024 2:23 PM EST Type 2 diabetes mellitus with hyperglycemia, without long-term current use of insulin (CMS/HCC) CBC WITH AUTO DIFFERENTIAL Routine 05/09/2024 10:55 AM EST Type 2 diabetes mellitus without complication, without long-term current use of insulin (CMS/HCC) VITAMIN B12/FOLATE, SERUM PANEL Routine 05/09/2024 10:55 AM EST Type 2 diabetes mellitus without complication, without long-term current use of insulin (CMS/HCC) LIPID PANEL, STANDARD Routine 05/09/2024 10:55 AM EST Type 2 diabetes mellitus without complication, without long-term current use of insulin (CMS/HCC) HEMOGLOBIN A1C Routine 05/09/2024 10:55 AM EST Type 2 diabetes mellitus without complication, without long-term current use of insulin (CMS/HCC) COMPREHENSIVE METABOLIC PANEL Routine 05/09/2024 10:55 AM EST Type 2 diabetes mellitus without complication, without long-term current use of insulin (CMS/HCC) ALBUMIN, RANDOM URINE W/CREATININE Routine 05/09/2024 10:55 AM EST Type 2 diabetes mellitus without complication, without long-term current use of insulin (CMS/HCC) CHLAMYDIA/N. GONORRHOEAE RNA, TMA, UROGENITAL Routine 05/09/2024 10:55 AM EST Annual physical exam HEPATITIS C AB W/REFL TO HCV RNA, QN, PCR Routine 09/15/2023 10:24 AM EDT Annual physical exam HIV 1/2 ANTIGEN/ANTIBODY, FOURTH GENERATION W/RFL Routine 09/15/2023 10:24 AM EDT Annual physical exam from Last 3 Months or Most Recently Relevant to Health Maintenance Results * CBC (07/26/2024 11:45 AM EST) White Blood Count 10.6 4.8 - 10.8 X10*3/uL [facility] Red Blood Count 4.84 4.60 - 5.80 X10*6/uL [facility] Hemoglobin 14.7 14.0 - 18.0 g/dl [facility] Hematocrit 43.0 42.0 - 52.0 % [facility] Mean Corpuscular Volume 88.8 80.0 - 98.0 fL [facility] Mean Corpuscular Hemoglobin 30.4 27.0 - 33.0 pg [facility] Mean Corpuscular HGB Conc 34.2 31.0 - 36.0 g/dl [facility] Red Cell Distribution Width 14.4 11.0 - 16.0 % [facility] Platelet Count 166 160 - 400 X10*3/uL [facility] Mean Platelet Volume 9.8 9.4 - 12.4 fL [facility] NRBC Pct Auto 0.0 0.0 - 0.2 /100WBC [facility] NRBC Abs Auto 0.000 0.0 - 0.012 X10*3/uL [facility] Blood Venous blood specimen / Unknown 07/26/2024 11:45 AM EST 07/26/2024 1:23 PM EST us Phyllis Roach MD LAB BLOOD ORDERAB LES Final Result [facility] [address] [place] [address] [phone] * (ABNORMAL) B Type Natriuretic Peptide (BNP) (07/26/2024 11:45 AM EST) B Type Natriuretic Peptide 148(H) <100 pg/mL [facility] Comment:For those patients w ho are being treated with Natrecor(nesiritide, recombinant BNP), BNP testing should beperformed at least two hours post treatment in order toensure that only endogenous levels of BNP are detected. Blood Venous blood specimen / Unknown 07/26/2024 11:45 AM EST 07/26/2024 1:25 PM EST Anil Gross [facility] LAB BLOOD ORDERABLES Albertina l Result [facility] [address] [place] [phone] * (ABNORMAL) POCT HGB A1C (05/10/2024 2:29 PM EST) Hemoglobin A1C 6.4(A) 4.0 - 6.0 % QC Media Lot # [id number] Lot# Expiration Date Blood 05/10/2024 2:29 PM EST Phyllis Roach MD POINT OF CARE EKATERINA T ENTER/EDIT ORDERABLES Final Result * POCT Glucose (05/10/2024 2:23 PM EST) Glucose Blood, POC 131 60 - 200 mg/dL QC Media Lot # [id number] Lot# Expiration Date ,025 Blood Capillary blood specimen / Unknown 05/10/2024 2:23 PM EST Phyllis Roach MD POINT OF CARE EKATERINA T ENTER/EDIT ORDERABLES Final Result * Vitamin B12 (Cobalamin) and Folate Panel, Serum (05/09/2024 10:55 AM EST) Vitamin B12 322 200 - 900 pg/mL [facility] Comment:NORMAL 200-900 PG/M L INDETERMINATE 160-199 PG/ML DEFICIENT < 160 PG/ML Folate 5.0 > or = 4.0 ng/mL [facility] Comment:Reference Values:> o r = 4.0 ng/mL< 4.0 ng/mL suggests folate deficiency Methotrexate, aminopterin and folinic acid(leucovorin) are chemotherapeutic agents whose molecularstructures are similar to folate; therefore, the Architectfolate assay cannot be used for patients using these drugs. Blood 05/09/2024 10:5 5 AM EST 05/09/2024 1:45 PM EST us Phyllis Roach MD LAB BLOOD ORDERAB LES Final Result Performing Organization Address [facility] de Phone Number [facility] [address] [place] [phone] * Albumin, Random Urine W/Creatinine (05/09/2024 10:55 AM EST) Creatinine, Urine 262.21 mg/dL [facility] Microalbumin Urine 14.0 mg/L [facility] Microalbum Creatinine Ratio Ur 5.3 <30 ug/mg cr [facility] Comment:Albumin/Creatinine R atio Reference Ranges: Normal: < 30 ug/mg creatinine Microalbuminuria: 30 - 300 ug/mg creatinineClinical Albuminuria: > 300 ug/mg creatinine Urine (Urine, Random) 05/09/2024 10:55 AM EST 05/09/2024 1:10 PM EST us Phyllis Roach MD LAB URINE ORDERAB LES Final Result Performing Organization Address [facility] de Phone Number [facility] [address] [place] [phone] * (ABNORMAL) CBC auto differential (05/09/2024 10:55 AM EST) White Blood Count 9.7 4.8 - 10.8 X10*3/uL [facility] Red Blood Count 5.10 4.60 - 5.80 X10*6/uL [facility] Hemoglobin 15.5 14.0 - 18.0 g/dl [facility] Hematocrit 45.5 42.0 - 52.0 % [facility] Mean Corpuscular Volume 89.2 80.0 - 98.0 fL [facility] Mean Corpuscular Hemoglobin 30.4 27.0 - 33.0 pg [facility] Mean Corpuscular HGB Conc 34.1 31.0 - 36.0 g/dl [facility] Red Cell Distribution Width 13.4 11.0 - 16.0 % [facility] Platelet Count 189 160 - 400 X10*3/uL [facility] Mean Platelet Volume 10.4 9.4 - 12.4 fL [facility] Neutrophils Percent Auto 61.9 45 - 73 % [facility] Imm Gran Pct Auto 1.4(H) 0.0 - 0.4 % [facility] Lymphocytes Percent Auto 23.4 20 - 40 % [facility] Monocytes Percent Auto 11.7(H) 2 - 11 % [facility] Eosinophils Percent Auto 1.3 0 - 4 % [facility] Basophils Percent Auto 0.3 0 - 2 % [facility] NRBC Pct Auto 0.0 0.0 - 0.2 /100WBC [facility] Neutrophils Absolute Auto 6.0 2.0 - 8.3 x10*3/uL [facility] Imm Gran Abs Auto 0.14(H) 0.00 - 0.03 X10*3/uL [facility] Lymphocytes Absolute Auto 2.3 1.2 - 4.9 X10*3/uL [facility] Monocytes Absolute Auto 1.1 0.1 - 1.2 X10*3/uL [facility] Eosinophils Absolute Auto 0.1 0.0 - 0.4 X10*3/uL [facility] Basophils Absolute Auto 0.0 0.0 - 0.2 X10*3/uL [facility] NRBC Abs Auto 0.000 0.0 - 0.012 X10*3/uL [facility] Blood Venous blood specimen / Unknown 05/09/2024 10:55 AM EST 05/09/2024 1:43 PM EST us Phyllis Roach MD LAB BLOOD ORDERAB LES Final Result [facility] [address] [place] [phone] * Chlamydia/N. Gonorrhoeae RNA, TMA, Urogenitial (05/09/2024 10:55 AM EST) CT PCR NOT DETECTED Not Detect. [facility] Comment:A not detected test result does not exclude the possibilityof infection because test results can be affected byimproper specimen collection, concurrent antibiotic therapy,or the number of organisms in the specimen which may bebelow the sensitivity of the test. As with many diagnostictests, results from the Xpert CT/NG assay should beinterpreted in conjunction with other laboratory andclinical data available to the clinician.Xpert CT/NG performance has not been evaluated in patientsless than 14 years of age. The assay should not be used forthe evaluationof suspected sexual abuse or for other medico-legalindications. Additional testing is recommended in anycircumstance when false positive or false negative resultscould lead to adverse medical, social or psychologicalconsequences. NG PCR NOT DETECTED Not Detect. [facility] Comment:A not detected test result does not exclude the possibilityof infection because test results can be affected byimproper specimen collection, concurrent antibiotic therapy,or the number of organisms in the specimen which may bebelow the sensitivity of the test. As with many diagnostictests, results from the Xpert CT/NG assay should beinterpreted in conjunction with other laboratory andclinical data available to the clinician.Xpert CT/NG performance has not been evaluated in patientsless than 14 years of age. The assay should not be used forthe evaluationof suspected sexual abuse or for other medico-legalindications. Additional testing is recommended in anycircumstance when false positive or false negative resultscould lead to adverse medical, social or psychologicalconsequences. Urine Urethral structure / Unknown 05/09/2024 10:55 AM EST 05/09/2024 1:10 PM EST Narrative [facility] - 05/09/2024 3:27 PM EST Urine us Phyllis Roach MD LAB MICROBIOLOGY - GENERAL ORDERABLES Final Result Performing Organization Address [facility]/ZIP Co de Phone Number [facility] [address] [place] [phone] * (ABNORMAL) Hemoglobin A1c (05/09/2024 10:55 AM EST) Hemoglobin A1c 6.1(H) <6.0 % [facility] Comment:Hemoglobin A1C Refer ence Range Adults: 4.8 - 6.0 % Non diabetic: < 6.0 % Goal: < 7.0 %Additional Action Suggested: > 8.0 %Note: Hemoglobin A1c results are invalid for patients with abnormal amounts of HbF. Blood transfusions may impact the HbA1c concentration in the patient sample. Estimated Average Glucose 128 mg/dL [facility] Comment:eAG = Estimated ave rage glucose which is %A1C expressed asaverage glucose, using the formula of the L8L-[id number] Glucose study (ADAG), Diabetes Care, Vol.31,#8,2007 Blood Venous blood specimen / Unknown 05/09/2024 10:55 AM EST 05/09/2024 1:43 PM EST Phyllis Roach MD LAB BLOOD ORDERAB LES Final Result Performing Organization Address [facility]/ZIP Co de Phone Number [facility] [address] [place] [phone] * (ABNORMAL) Lipid Panel, Standard (05/09/2024 10:55 AM EST) Triglycerides 106 <150 mg/dL [facility] Comment:Desirable Triglyceri de: less than 150 mg/dLBorderline High Triglyceride 150-199 mg/dLHigh Triglyceride: 200-499 mg/dLVery High Triglyceride: greater than or equal to 5OO mg/dL Cholesterol 138 <200 mg/dL [facility] Comment:Desirable Cholestero l: less than 200 mg/dLBorderline High Cholesterol: 200-239 mg/dLHigh Cholesterol: greater than 239 mg/dL LDL Cholesterol Calculated 84 <100 mg/dL [facility] Comment:Desirable LDL: less than 100 mg/dLNear Optimal/Above Optimal LDL: 110- 129 mg/dLBorderline High LDL: 130-159 mg/dLHigh LDL: 160-189 mg/dLVery High LDL: greater than or equal to 190 mg/dL HDL Cholesterol 33(L) >40 mg/dL [facility] Comment:Desirable HDL: great er than 40 mg/dL Note: This HDL assay may give artificially low results in patients with liver disease. Blood Venous blood specimen / Unknown 05/09/2024 10:55 AM EST 05/09/2024 1:45 PM EST us Phyllis Roach MD LAB BLOOD ORDERAB LES Final Result [facility] [address] [place] [phone] * (ABNORMAL) Comprehensive Metabolic Panel (05/09/2024 10:55 AM EST) Sodium 137 135 - 145 mmol/L [facility] Potassium 3.4 3.3 - 5.1 mmol/L [facility] Comment:Slight Hemolysis.Int erpret result with caution. Chloride 102 96 - 108 mmol/L [facility] Carbon Dioxide 23 22 - 29 mmol/L [facility] Anion Gap 15 12 - 20 [facility] Urea Nitrogen (BUN) 9 9 - 16 mg/dL [facility] Creatinine, Serum 0.70 0.5 - 1.4 mg/dL [facility] Estimated Glomerular Filt Rate >60 [facility] Comment:Chronic Kidney Disea se: Estimated GFR < 60 mL/min/1.75l9Hqueoo Kidney Disease: Estimated GFR < 15 mL/min/1.73m2 Glucose 135(H) 60 - 115 mg/dL [facility] Calcium 9.3 8.4 - 10.2 mg/dL [facility] Bilirubin, Total 0.9 0.0 - 1.0 mg/dL [facility] Aspartate Amino Transferase 74(H) 5 - 37 U/L [facility] Comment:Slight Hemolysis.Int erpret result with caution. Alanine Aminotransferase 67(H) 0 - 40 U/L [facility] Total Protein 7.8 6.5 - 8.0 g/dL [facility] Albumin Level 3.9 3.5 - 5.0 g/dL [facility] Alkaline Phosphatase 70 39 - 117 U/L [facility] Blood Venous blood specimen / Unknown 05/09/2024 10:55 AM EST 05/09/2024 1:45 PM EST us Phyllis Roach MD LAB BLOOD ORDERAB LES Final Result Performing Organization Address [facility]/ZIP Co de Phone Number [facility] [address] [place] [phone] * Hepatitis C Antibody with Reflex to HCV, RNA, Quantitative, Real-Time PCR (09/15/2023 10:24 AM EDT) Hepatitis C Antibody Nonreactive Nonreactive [facility] Comment:Antibodies to HCV no t detected; does not exclude early acuteHCV infection. Blood Venous blood specimen / Unknown 09/15/2023 10:24 AM EDT 09/15/2023 11:20 AM EDT us Phyllis Roach MD LAB BLOOD ORDERAB LES Final Result Performing Organization Address [facility]/ZIP Co de Phone Number [facility] [address] [place] [address] [phone] * HIV-1/2 Antigen and Antibodies, Fourth Generation, with Reflexes (09/15/2023 10:24 AM EDT) HIV AB/AG Nonreactive Nonreactive [facility] Comment:HIV-1 p24 Ag and/or HIV-1/HIV-2 Ab not detected.A test result that is nonreactive does not exclude thepossibility of exposure to or infection with HIV-1 and/orHIV-2. Nonreactive results in this assay for individualswith prior exposure to HIV-1 and/or HIV-2 may be due toantigen and antibody levels that are below the limit ofdetection of this assay.The [employer]iniCast Alinity HIV Ag/Ab Combo assay result andsupplemental assay results should be interpreted inconjunction with the patient's clinical presentation,history and other laboratory results. If the results areinconsistent with clinical evidence, additional testing issuggested to confirm the result. Blood Venous blood specimen / Unknown 09/15/2023 10:24 AM EDT 09/15/2023 11:20 AM EDT us Phyllis Roach MD LAB BLOOD ORDERAB LES Final Result [facility] [address] [place] [phone] from Last 3 Months or Most Recently Relevant to Health Maintenance Insurance [facility] C3 HSN FULL Care Teams Industrial Truck Driver Relationship Specialty Start Date End Date Phyllis Skinner MD [address] [place] [phone] PCP - General Internal Medicine 07/29/23 [facility] 05/23/24
--- OUTSIDE RECORDS SUMMARY | 2024-07-26 14:07 | XMS_ITS | Encounter Summary ---
Author Organization [employer] Address [address] [place] [address] [address] [place] [address] Care Team Providers Care Director Of Student Services Name Role Phone Phyllis Skinner MD Primary Care Pro vider Reason for Visit * Reason Onset Date Comments No Show 07/07/2024 Encounter Details Date Type Department Care Team (Late st Contact Info) Description 07/07/2024 Telephone [facility] [address] [place] [address] Phyllis Skinner MD [address] [place] [address] No Show Social History Tobacco Use Types Packs/Day Years [...] with others, in a hotel, in a penitentiary, living outside on the street, on a [...] encounter Miscellaneous Notes * Telephone Encounter - Jannet Kaplan RN - 07/07/2024 11:41 AM EST TC placed to pt via [employer] forest botany instructor ([employer] ID#[id number]). Offered pt appointment today 07/07/24 at 12:00 PM on Red Team. Pt reports he is SOB at night when sleeping, but this is not a new symptom. He reports he has had lung pain and SOB when sleeping for several years. Pt unable to come today 07/07/24 due to transportation to [facility] as he walks. Pt rescheduled for appointment with Anil Gross on 07/26/24 at 11:15 AM. * Telephone Encounter - Chad Sultana - 07/07/2024 10:47 AM EST Tc from pt calling in regards to message prior requesting to reschedule sick onsite visit. Please contact pt at [phone]. (Frisian Speaker) * Telephone Encounter - Valeria Elvin - 07/07/2024 10:42 AM EST Patient no show to sick onsite appointment on 07/07/24 with Hailee Lr. documented in this encounter Plan of Treatment Upcoming Encounters Date Type Department Care Team (Late st Contact Info) Description 08/25/2024 1:30 PM EST Office Visit [facility] [address] [place] [address] Anil Gross CNP [address] [place], [place] [phone] documented as of this encounter Visit Diagnoses Not on filedocumented in this encounter Additional Health Concerns Assessment Noted Time PHQ-9 Depression Total Score: 17 024 11:12 AM EST documented as of this encounter Care Teams Director Of Student Services Relationship Specialty Start Date End Date Phyllis Skinner MD [address] [place] [address] PCP - General Internal Medicine 07/29/23 [facility] 05/23/24 documented as of this encounter
--- OUTSIDE RECORDS SUMMARY | 2024-07-26 14:07 | XMS_ITS | Encounter Summary ---
Author Organization [employer] Address [address] [place] [address] [address] [place] [address] Care Team Providers Care Grant Officer Name Role Phone Phyllis Skinner MD Primary Care Pro vider Reason for Visit * Reason Onset Date Comments PT-1 07/07/2024 Encounter Details Date Type Department Care Team (Late st Contact Info) Description 07/07/2024 Telephone [facility] [address] [place] [address] Phyllis Skinner MD [address] [place] [address] PT-1 Social History Tobacco Use Types Packs/Day Years [...] encounter Miscellaneous Notes * Telephone Encounter - Chad Sultana - 07/07/2024 10:41 AM EST Patient calling requesting PT1 Home Address verified: Y/N: Yes Provider name or facility name: [facility] Facility Address: [address] [place] [address] Escort needed: Y/N: No Do you have a wheelchair: Y/N: No If yes- Manual or electric: N/A (uses walker) Visits: 5 Monthly documented in this encounter Plan of Treatment Upcoming Encounters Date Type Department Care Team (Late st Contact Info) Description 08/25/2024 1:30 PM EST Office Visit [facility] [address] [place] [address] Anil Gross CNP [address] [place], [place] [phone] documented as of this encounter Visit Diagnoses Not on filedocumented in this encounter Additional Health Concerns Assessment Noted Time PHQ-9 Depression Total Score: 17 12/30/2 024 11:12 AM EST documented as of this encounter Care Teams Grant Officer Relationship Specialty Start Date End Date Phyllis Skinner MD [address] [place] [phone] PCP - General Internal Medicine 07/29/23 [facility] 05/23/24 documented as of this encounter
--- OUTSIDE RECORDS SUMMARY | 2024-07-26 14:07 | XMS_ITS | Encounter Summary ---
Author Organization [employer] Address [address] [place] [address] [address]t [place] [address] Care Team Providers Care Lamp Stack Developer Name Role Phone Phyllis Skinner MD Primary Care Pro vider Reason for Visit * Reason Onset Date Comments Referral 07/04/2024 Encounter Details Date Type Department Care Team (Late st Contact Info) Description 07/04/2024 Telephone [facility] [address] [place] [address] Phyllis Skinner MD [address] [place] [address] Referral Social History Tobacco Use Types Packs/Day [...] * Telephone Encounter - Larry Hardy - 07/04/2024 1:56 PM EST TC from pt requesting a referral for Sleep study on 07/30/23 to be [place] [facility] [place] [facility] in [place] due to pt not having transportation. If any questions contact pt at [phone] documented in this encounter Plan of Treatment Upcoming Encounters Date Type Department Care Team (Late st Contact Info) Description 08/25/2024 1:30 PM EST Office Visit [facility] [address] [place], [place] [phone] Anil Gross CNP [address] [place], [place] [phone] documented as of this encounter Visit Diagnoses Not on filedocumented in this encounter Additional Health Concerns Assessment Noted Time PHQ-9 Depression Total Score: 17 024 11:12 AM EST documented as of this encounter Care Teams Lamp Stack Developer Relationship Specialty Start Date End Date Phyllis Skinner MD [address] [place] [phone] PCP - General Internal Medicine 07/29/23 [facility] 05/23/24 documented as of this encounter
--- OUTSIDE RECORDS SUMMARY | 2024-07-26 14:07 | XMS_ITS | Encounter Summary ---
Author Organization [employer] Address [address] [place] [address] [address] [place] [address] Care Team Providers Care Second Operator Name Role Phone Phyllis Skinner MD Primary Care Pro vider Reason for Visit * Reason Onset Date Comments PT1 12/06/2023 Encounter Details Date Type Department Care Team (Late st Contact Info) Description 12/06/2023 Telephone [facility] [address] [place] [address] Phyllis Skinner MD [address] [place] [address] PT1 Social History Tobacco Use Types Packs/Day Years Used Date Smoking Tobacco: Never Smokeless Tobacco: Never Alcohol Use Standard Drinks/Week Comments Yes 0 (1 standard drink = 0.6 oz pure alcohol) hx of heavy alcohol use now drinks twice a week-vodka 1/2 Bottle Depression Answer Date Recorded Patient Health Questionnaire-9 Score 24 08/02/2023 Patient Health Questionnaire-9 Score 24 08/02/2023 Last PHQ-9: Questionnaire Data Not on file 0 08/02/2023 Housing Stability Answer Date Recorded What is [...] Date Recorded Patient Health Questionnaire-2 Score 6 08/02/2023 Sex and Gender Information Value Date Recorded Sex Assigned at Male 05/18/2023 10:34 AM EST Legal Sex Male 10:31 AM EST Gender Identity Male 05/18/2023 10:34 AM EST Sexual Orientation Straight 05/18/2023 10 :34 AM EST documented as of this encounter Miscellaneous Notes * Telephone Encounter - Gretchen James - 12/06/2023 12:51 PM EDT Patient calling requesting PT1 Home Address verified: Y/N: Yes Provider name or facility name: [facility] Facility Address: [address] [place] [phone] Escort needed: Y/N: No Do you have a wheelchair: Y/N: No If yes- Manual or electric: n/a Visits: 6 a year documented in this encounter Plan of Treatment Upcoming Encounters Date Type Department Care Team (Late st Contact Info) Description 08/25/2024 1:30 PM EST Office Visit [facility] [address] [place], [place] [phone] Anil Gross CNP [address] [place], [place] [phone] documented as of this encounter Visit Diagnoses Not on filedocumented in this encounter Additional Health Concerns Assessment Noted Time PHQ-9 Depression Total Score: 24 024 11:50 AM EST documented as of this encounter Care Teams Second Operator Relationship Specialty Start Date End Date Phyllis Skinner MD [address] [place] [phone] PCP - General Internal Medicine 07/29/23 [facility] 05/23/24 documented as of this encounter
--- OUTSIDE RECORDS SUMMARY | 2024-07-26 14:07 | XMS_ITS | Encounter Summary ---
Author Organization [employer] Address [address] [facility] [address] [place] [address] Care Team Providers Care Committee Member Name Role Phone Phyllis Skinner MD Primary Care Pro vider Reason for Visit * Reason Onset Date Comments Chart Prep 07/05/2024 Encounter Details Date Type Department Care Team (Late st Contact Info) Description 07/05/2024 Telephone [facility] [address] [place] [address] Bertha Cook MA Chart Prep Social History Tobacco Use Types [...] with others, in a hotel, in a fpc, living outside on the street, on a [...] encounter Miscellaneous Notes * Telephone Encounter - Bertha Cook MA - 07/05/2024 2:37 PM EST Chart Prep Labs: not done Images: done Vaccines due: Covid Due, Hep B Due, PCV20 Due, and Flu Due Referrals: Psychiatry 2nd attempt made, unable to reach [facility] to call back. Screenings: Eye Exam Overdue care gaps: Glucose documented in this encounter Plan of Treatment Upcoming Encounters Date Type Department Care Team (Late st Contact Info) Description 08/25/2024 1:30 PM EST Office Visit [facility] [address] [place] [address] Anil Gross CNP [address] [place] [address] documented as of this encounter Visit Diagnoses Not on filedocumented in this encounter Additional Health Concerns Assessment Noted Time PHQ-9 Depression Total Score: 17 024 11:12 AM EST documented as of this encounter Care Teams Committee Member Relationship Specialty Start Date End Date Phyllis Skinner MD [address] [place] [address] PCP - General Internal Medicine 07/29/23 [facility] 05/23/24 documented as of this encounter
--- OUTSIDE RECORDS SUMMARY | 2024-07-26 14:07 | XMS_ITS | Encounter Summary ---
Author Organization [employer] Address [address] [place] [address] 7t [place] [address] Care Team Providers Care Game Farm Supervisor Name Role Phone Phyllis Skinner MD Primary Care Pro vider Reason for Visit * Reason Onset Date Comments Change PCP 07/10/2024 Encounter Details Date Type Department Care Team (Late st Contact Info) Description 07/10/2024 Telephone [facility]INE [address] [place] [address] Phyllis Skinner MD [address] [place] [address] Change PCP Social History Tobacco Use Types Packs/Day Years [...] with others, in a hotel, in a chcf, living outside on the street, on a [...] Miscellaneous Notes * Telephone Encounter - Chad Rd - 07/10/2024 12:29 PM EST Tc from pt requesting to change pcp. He feels he's not being seen and current pcp is not following up with his diabetes.pt further states he has requested BW orders in which he has not received. Please contact pt at [phone]. (Setswana Speaker) documented in this encounter Plan of Treatment Upcoming Encounters Date Type Department Care Team (Late st Contact Info) Description 08/25/2024 1:30 PM EST Office Visit [facility] [address] [place] [address] Anil Gross CNP [address] [place] [address] documented as of this encounter Visit Diagnoses Not on filedocumented in this encounter Additional Health Concerns Assessment Noted Time PHQ-9 Depression Total Score: 17 024 11:12 AM EST documented as of this encounter Care Teams Game Farm Supervisor Relationship Specialty Start Date End Date Phyllis Skinner MD [address] [place] [id number] PCP - General Internal Medicine 07/29/23 [facility] 05/23/24 documented as of this encounter
--- OUTSIDE RECORDS SUMMARY | 2024-07-26 14:07 | XMS_ITS | Encounter Summary ---
Author Organization [employer] Address [address] [facility] 7t [place] [address] Care Team Providers Care Fur Blowing Machine Attendant Name Role Phone Phyllis Skinner MD Primary Care Pro vider Reason for Visit * Reason Comments Care Coordination CHW outreach for SDO H PT-1 and food needs-referral completed Encounter Details Date Type Department Care Team (Latest Contact Info) Description 06/30/2024 Patient Outreach [facility] MEDICINE [address] [place] [address] Phyllis Skinner MD [address] [place] [address] Care Coordination (CHW outreach for SDOH PT-1 [...] encounter Progress Notes * Brian Orta - 06/30/2024 1:48 PM EST CHW Brian Orta, placed outbound call to patient for assistance with SDOH as a referral was received by the provider. Patient's name and were confirmed. Patient screened positive for the following SDOH food insecurities. CHW referral patient to the local list of pantries in the area for help. PT-1 requested was send out in behalf of patient for futures appt. Patient verbalizes understandin g, and able to agree with plan to follow up. Patient educated on extended clinic hours on Mondays through Wednesdays, and Walk-In Urgent Care Located in [facility]. Patient provided with after-hours line for [facility], , which offer night time triage service and option to transfer to combination operator provider if needed. documented in this encounter Plan of Treatment Upcoming Encounters Date Type Department Care Team (Late st Contact Info) Description 08/25/2024 1:30 PM EST Office Visit [facility] MEDICINE [address] [place], [place] [phone] Anil Gross CNP [address] [place], [place] [phone] documented as of this encounter Visit Diagnoses Not on filedocumented in this encounter Additional Health Concerns Assessment Noted Time PHQ-9 Depression Total Score: 17 024 11:12 AM EST documented as of this encounter Care Teams Fur Blowing Machine Attendant Relationship Specialty Start Date End Date Phyllis Skinner MD [address] [place], [place] [phone] PCP - General Internal Medicine 07/29/23 [facility] 05/23/24 documented as of this encounter
--- OUTSIDE RECORDS SUMMARY | 2024-07-26 14:07 | XMS_ITS | Encounter Summary ---
Author Organization [employer] Address [address] [place] [address] 7t [place] [address] Care Team Providers Care Animal Anatomist Name Role Phone Phyllis Skinner MD Primary Care Pro vider Reason for Visit * Reason Onset Date Comments Medication Question 06/30/2024 Referral 06/30/2024 Encounter Details Date Type Department Care Team (Late st Contact Info) Description 06/30/2024 Telephone [facility] MEDICINE [address] [place] [address] Phyllis Skinner MD [address] [place], [place] [phone] Medication Question; Referral Social History Tobacco Use Types Packs/Day Years Used Date Smoking Tobacco: Never Passive Smoke Exposure: Never Smokeless Tobacco: Never Alcohol Use Standard Drinks/Week Comments Yes 0 (1 standard drink = 0.6 oz pure alcohol) hx of heavy alcohol use now drinks twice a week-vodka 06/29 Bottle Depression Answer Date Recorded Patient Health Questionnaire-9 Score 17 06/26/2024 Patient Health Questionnaire-9 Score 17 06/26/2024 Last PHQ-9: Questionnaire Data Not on file 1 Housing Stability Answer Date Recorded What is your housing situation today? I do not have housing (Staying with others, in a hotel, in a senior living, living outside on the street, on a [...] encounter Miscellaneous Notes * Telephone Encounter - Lindsay Blevins RN - 07/04/2024 11:07 AM EST Approval letter for Zeshanound on file from 06/19/24, called [facility] pharmacy, PA went through, pt can picker / packer later today. Called pt to notify of this, [facility] verbalized understanding [facility]. Asked pt about referrals he called in about, pt asking for pulmonology referral due to ongoing right lung pain since 2019. Pt said that [facility] said he should see biometrician, unclear why. No referral in chart, advised pt he will need to be seen for this referral to be considered. Scheduled pt for appt with freddy team on 07/07/24. Pt also asking about sleep medicine referral, per chart pt has active sleep medicine referral until 08/22. Pt stated they offered him an apptin a location that didn't work for him, advised him to call back sleep medicine clinic to ask for appt at preferred location. Pt verbalized understanding, in agreement with plan, to call clinic PRN. * Telephone Encounter - Chad Sultana - 06/30/2024 1:19 PM EST Tc from pt requesting a call back regarding referrals and medication. Pt was informed that the zepbound has been approved by ins and he is requesting for it to be sent to the pharmacy. In regards to referral pt would like to discuss pulmonology referral as well as sleep medicine [facility] if [facility]. Please contact pt at [phone]. (Luxembourgish Speaker) documented in this encounter Plan of Treatment Upcoming Encounters Date Type Department Care Team (Late st Contact Info) Description 08/25/2024 1:30 PM EST Office Visit [facility] MEDICINE [address] [place], [place] [phone] Anil Gross CNP [address] [place], [place] [phone] documented as of this encounter Visit Diagnoses Not on filedocumented in this encounter Additional Health Concerns Assessment Noted Time PHQ-9 Depression Total Score: 17 024 11:12 AM EST documented as of this encounter Care Teams Animal Anatomist Relationship Specialty Start Date End Date Phyllis Skinner MD [address] [place], [place] [phone] PCP - General Internal Medicine 07/29/23 [facility] 05/23/24 documented as of this encounter
--- OUTSIDE RECORDS SUMMARY | 2024-07-26 14:07 | XMS_ITS | Encounter Summary ---
Author Organization [employer] Address [address] [place] [address] 7t [place] [address] Care Team Providers Care Data Collector Name Role Phone Phyllis Skinner MD Primary Care Pro vider Reason for Visit * Reason Onset Date Comments PT-1 06/30/2024 Encounter Details Date Type Department Care Team (Late st Contact Info) Description 06/30/2024 Telephone [facility]INE [address] [place] [address] Phyllis Skinner MD [address] [place] [address] PT-1 Social History Tobacco Use Types Packs/Day [...] Telephone Encounter - Chad Sultana - 06/30/2024 1:13 PM EST Patient calling requesting PT1 Home Address verified: Y/N: Yes Provider name or facility name: [facility] Facility Address: [address] [place] [address] Escort needed: Y/N: Yes Do you have a wheelchair: Y/N: No (uses cane) If yes- Manual or electric: N/A Visits: 8 times monthly - Patient calling requesting PT1 Home Address verified: Y/N: Yes Provider name or facility name: [facility] Facility Address: [address] [place] [address] Escort needed: Y/N: Yes Do you have a wheelchair: Y/N: No If yes- Manual or electric: N/A Visits: 5 monthly documented in this encounter Plan of Treatment Upcoming Encounters Date Type Department Care Team (Late st Contact Info) Description 08/25/2024 1:30 PM EST Office Visit [facility] [address] [place] [address] Anil Gross CNP [address] [place] [address] documented as of this encounter Visit Diagnoses Not on filedocumented in this encounter Additional Health Concerns Assessment Noted Time PHQ-9 Depression Total Score: 17 024 11:12 AM EST documented as of this encounter Care Teams Data Collector Relationship Specialty Start Date End Date Phyllis Skinner MD [address] [place] [address] PCP - General Internal Medicine 07/29/23 [facility] 05/23/24 documented as of this encounter
[2024-07-26 14:19] LABS: Alanine Aminotransferase 23 U/L (0-40); Albumin Level 3.9 g/dL (3.5-5.0); Alkaline Phosphatase 69 U/L (39-117); Anion Gap 12 (12-20); Aspartate Amino Transferase 40 U/L (5-37); Bilirubin Total 0.9 mg/dL (0.0-1.0); Blood Urea Nitrogen 8 mg/dL (9-16); Calcium 8.6 mg/dL (8.4-10.2); Carbon Dioxide 25 mmol/L (22-29); Chloride 103 mmol/L (96-108); Estimated Glomerular Filt Rate > 60; Glucose Random 147 mg/dL (60-115); Potassium 3.2 mmol/L (3.3-5.1); Sodium 137 mmol/L (135-145); Total Protein 7.8 g/dL (6.5-8.0)
[2024-07-26 14:25] LABS: Vitamin D 25-OH Total 33.2 ng/mL (>30)
== END 2024-07-26 11:42 | disposition home or self-care (01) ==
LOC: HO.HHCL 11:41
PROVIDERS: Student in an Organized Health Care Education/Training Program
DX: E11.65 Type 2 diabetes mellitus with hyperglycemia (principal); R05.3 Chronic cough; R60.0 Localized edema
CPT/HCPCS: 36415; 80053; 82306; 83880; 85027

== ENCOUNTER 2024-07-26 14:39 | Outpatient (AMB) | payer MEDICAID, SELFPAY ==
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
[2024-07-26 15:05] VITALS: BMI 58.9
--- OUTSIDE RECORDS SUMMARY | 2024-07-26 16:51 | XMS_ITS | Encounter Summary ---
Author Organization [employer] Address [address] [place] [address] 7[address] [place] [address] Care Team Providers Care Accounting Manager Cpa Name Role Phone Phyllis Skinner MD Primary Care Pro vider Reason for Visit * Reason Onset Date Comments Referral 05/19/2024 Encounter Details Date Type Department Care Team (Late st Contact Info) Description 05/19/2024 Telephone [facility]ICINE [address] [place] [address] Phyllis Skinner MD [address] [place] [address] Referral Social History Tobacco Use Types Packs/Day [...] with others, in a hotel, in a intermediate, living outside on the street, on a [...] about referral for Psychiatrist. Contact pt at [phone] documented in this encounter Plan of Treatment Upcoming Encounters Date Type Department Care Team (Late st Contact Info) Description 08/25/2024 1:30 PM EST Office Visit [facility] [address] [place] [address] Anil Gross CNP [address] [place] [address] documented as of this encounter Visit Diagnoses Not on filedocumented in this encounter Additional Health Concerns Assessment Noted Time PHQ-9 Depression Total Score: 17 024 9:10 AM EDT documented as of this encounter Care Teams Accounting Manager Cpa Relationship Specialty Start Date End Date Phyllis Skinner MD [address] [place] [address] PCP - General Internal Medicine 07/29/23 [facility] 05/23/24 documented as of this encounter
--- OUTSIDE RECORDS SUMMARY | 2024-07-26 16:51 | XMS_ITS | Clinical Summary ---
Author Organization [facility] Address [address] [place] [address] Care Team Providers Care Control Specialist Name Role Phone Tim Wright MD Primary Care Provider [phone] Social History Tobacco Use Types Packs/Day Years [...] age to complete this topic Care Teams Control Specialist Relationship Specialty Start Date End Date Tim Wright MD [address] [place] [address] [id number] [place] [address] PCP - General Internal Medicine 11/18/17
--- OUTSIDE RECORDS SUMMARY | 2024-07-26 16:51 | XMS_ITS | Clinical Summary ---
Author Organization [employer] Address [address] [place] [address] 7[address] [place] [address] Care Team Providers Care Front Desk Name Role Phone Phyllis Skinner MD Primary [...] 2 4 01/07/20 25 Active sodium chloride (Rosenhayn) 0.65 % nasal sprayIndications :Epistaxis Administer 1 spray into each nostril if needed for congestion. 15 mL 3 4 01/26/20 25 Active Multiple Vitamin (Multivitamin) tablet Take 1 tablet by mouth in the morning. 90 tablet 1 4 Active ergocalciferol (Vitamin D2) 1.25 MG (66046 UT) capsule Take 1 capsule (1.25 mg) [...] Provided information for CB- crisis numbers and [facility] help line. I will referred pt for IP therapy and psychopharmacology, Yazan also agreed to do referral for CM to assist with transportation and housing insecurities. clinician will provide follow-up BE per patient's request to assess sxs and provide additional support. PLAN: (check all that apply) New/Additional Services needed Off-site services for Behavioral Health Integration Plan Internal Follow up with [facility] External OP therapy referral and OP psychiatry Referral Patient Self Plan Patient to utilize skills provided in intervention , Patient to reach out to [facility] team as needed, Comply with medication , Patient to engage in OP therapy , and Patient to reach out to [facility] as needed Vitamin D deficiency 11/26/2023 Lower [...] last referral for [facility] in [place]. Pt identifies listening to music as a relaxing coping strategy. During today's session Yazan was provided with a safe space to share his concerns and emotions. Reviewed and assessed for risk, current stressors and protective factors using open-ended questions. Pt will be referred to psych with Chase Guzmán and [facility] for OP therapy. clinician will be available [...] Provided information for CB- crisis numbers and [facility] help line. I will referred pt for IP therapy and psychopharmacology, Yazan also agreed to do referral for CM to assist with transportation and housing insecurities. clinician will provide follow-up BE per patient's request to assess sxs and provide additional support. PLAN: (check all that apply) New/Additional Services needed Off-site services for Behavioral Health Integration Plan Internal Follow up with [facility] External OP therapy referral and OP psychiatry Referral Patient Self Plan Patient to utilize skills provided in intervention , Patient to reach out to [facility] team as needed, Comply with medication , [...] Provided information for [facility]- crisis numbers and [facility] help line. I will referred pt for IP therapy and psychopharmacology, Yazan also agreed to do referral for CM to assist with transportation and housing insecurities. clinician will provide follow-up BE per patient's request to assess sxs and provide additional support. PLAN: (check all that apply) New/Additional Services needed Off-site services for Behavioral Health Integration Plan Internal Follow up with [facility] External OP BH therapy referral and OP psychiatry Referral Patient Self Plan Patient to utilize skills provided in intervention , Patient to reach out to [facility] team as needed, Comply with medication , [...] as he would like to schedule with [facility] therapist. I provided my information, and he [...] Description 07/26/2024 11:15 AM EST Office Visit [facility] [address] [place] [phone] Anil Gross CNP Shortness of breath (Primary Dx); WARREN (obstructive sleep apnea); Chronic cough; Edema, lower extremity 07/26/2024 Travel 07/11/2024 Telephone [facility] [address] [place] [address] Phyllis Skinner MD Chart Prep 07/10/2024 Telephone [facility] [address] [place] [phone] Nehemiah Santana MA T/C change PCP request 07/10/2024 Telephone [facility] [address] [place] [phone] Phyllis Skinner MD Change PCP 07/07/2024 Patient Outreach [facility] [address] [place] [phone] Pyhllis Skinner MD Care Coordination (CHW outreach for SDOH PT-1 and food needs-referral completed /) 07/07/2024 Telephone [facility] [address] [place] [phone] Phyllis Skinner MD No Show 07/07/2024 Telephone [facility] [address] [place] [address] [phone] Phyllis Skinner MD PT-1 07/05/2024 Telephone [facility] [address] [place] [address] [phone] Bertha Cook MA Chart Prep 07/04/2024 Telephone [facility] [address] [place] [phone] Phyllis Skinner MD Referral 06/30/2024 Patient Outreach [address] [address] Phyllis Skinner MD Care Coordination (CHW outreach for SDOH PT-1 and food needs-referral completed /) 06/30/2024 Telephone [facility] [address] [place] [phone] Phyllis Skinner MD Medication Question; Referral 06/30/2024 Telephone [facility] [address] [place] [address] 33014 Phyllis Skinner MD PT-1 06/16/2024 Telephone [facility] [address] [place] [address] 80232 Irasema Carmona, nurses' registry director 06/12/2024 Telephone [facility] [address] [place] [phone] Brina Maria RNnurses' registry director (Denise MANJARREZ denied) 06/07/2024 Telephone [facility] [address] [place] [address] [phone] Radha Kang RNnurses' registry director (Denise MANJARREZ ) 05/26/2024 Refill [facility] [address] [place] [address] 20123 Phyllis Skinner MD 05/19/2024 Telephone [facility] [address] [place] [address] [phone] Phyllis Skinner MD Referral 05/19/2024 Telephone [facility] [address] [place] [address] [phone] Phyllis Skinner MD 05/11/2024 Telephone [facility] [address] [place] [address] [phone] Lindsay Blevins RN Home PT referral 05/10/2024 2:00 PM EST Office Visit [facility] [address] [place] [phone] Phyllis Skinner MD WARREN (obstructive sleep apnea) (Primary Dx); Type 2 diabetes mellitus with hyperglycemia, without long-term current use of insulin ([facility]); Primary hypertension; Morbid obesity ([facility]); Alcoholism ([facility]); Auditory hallucination; JULIÁN (generalized anxiety disorder); Health care maintenance; Hyperlipidemia, unspecified hyperlipidemia type; Schizoaffective disorder, depressive type ([facility]/HCC) 05/10/2024 Travel 05/08/2024 Telephone [facility] [address] [place] [address] [phone] Suzie Thao MA chart prep 05/05/2024 Telephone [facility] [address] [place] [address] [phone] Phyllis Skinner MD Prior Authorization ( PA: Denise) 05/03/2024 Refill [facility] [address] [place] [phone] Phyllis Skinner MD Primary hypertension from Last [...] with others, in a hotel, in a alf, living outside on the street, on a [...] Description 08/25/2024 1:30 PM EST Office Visit [facility] [address] [place] [phone] Anil Gross, SOLUTIONS MANAGER [address] [place], [place] [phone] Health Maintenance Due Date Last Done Comments [...] AM EST Chronic cough Edema, lower extremity VITAMIN D,25-OH,TOTAL,IA Routine 07/26/2024 11:45 AM EST Type 2 diabetes mellitus with hyperglycemia, without long-term current use of insulin ([facility]) COMPREHENSIVE METABOLIC PANEL Routine 07/26/2024 11:45 AM EST Type 2 diabetes mellitus with hyperglycemia, without long-term current use of insulin (CMS/HCC) CBC Routine 07/26/2024 11:45 AM EST Type 2 diabetes mellitus with hyperglycemia, without long-term current use of insulin (CMS/HCC) POCT GLYCATED HEMOGLOBIN, TOTAL Routine 05/10/2024 2:29 [...] Recently Relevant to Health Maintenance Results * Vitamin D, 25-Hydroxy, Total, Immunoassay (07/26/2024 11:45 AM EST) Vitamin D 25-OH Total 33.2 >30 ng/mL [facility] Comment:Health Based Referen ce Values*< 20 ng/mL Cnvtueylp15-66 ng/mL Insufficient> 30 ng/mL Sufficient*[employer] WEST. N Engl J Med. 2007;357:266-280Care must be taken in interpreting Vitamin D results fromdifferent laboratories and methodologies. Published datademonstrated that results from patients undergoinghemodialysis may show a negative bias when tested withvarious automated 25-OH vitamin D assays when compared toLC-MS/MS.When testing samples from patients whose predominant form ofVitamin D is Vitamin D2, such as patients receiving VitaminD2 supplementation, results that are subtherapeutic shouldbe confirmed with another method such as LC-MS/MS. Blood Venous blood specimen / Unknown 07/26/2024 11:45 AM EST 07/26/2024 1:23 PM EST us Phyllis Roach MD LAB BLOOD ORDERAB LES Final Result [facility] [address] [place] [address] [phone] * CBC (07/26/2024 11:45 AM EST) White Blood Count 10.6 4.8 - 10.8 X10*3/uL [facility] Red Blood Count 4.84 4.60 - 5.80 X10*6/uL [facility] Hemoglobin 14.7 14.0 - 18.0 g/dl [facility] Hematocrit 43.0 42.0 - 52.0 % [facility] Mean Corpuscular Volume 88.8 80.0 - 98.0 fL [facility] Mean Corpuscular Hemoglobin 30.4 27.0 - 33.0 pg [facility] Mean Corpuscular HGB Conc 34.2 31.0 - 36.0 g/dl [facility] Red Cell Distribution Width 14.4 11.0 - 16.0 % [facility] Platelet Count 166 160 - 400 X10*3/uL [facility] Mean Platelet Volume 9.8 9.4 - 12.4 fL [facility] NRBC Pct Auto 0.0 0.0 - 0.2 /100WBC [facility] NRBC Abs Auto 0.000 0.0 - 0.012 X10*3/uL [facility] Blood Venous blood specimen / Unknown 07/26/2024 11:45 AM EST 07/26/2024 1:23 PM EST Phyllis Roach MD LAB BLOOD ORDERAB LES Final Result Performing Organization Address [facility] Co de Phone Number [facility] [address] [place] [phone] * (ABNORMAL) B Type Natriuretic Peptide (BNP) (07/26/2024 11:45 AM EST) B Type Natriuretic Peptide 148(H) <100 pg/mL [facility] Comment:For those patients w ho are being treated with Natrecor(nesiritide, recombinant BNP), BNP testing should beperformed at least two hours post treatment in order toensure that only endogenous levels of BNP are detected. Blood Venous blood specimen / Unknown 07/26/2024 11:45 AM EST 07/26/2024 1:25 PM EST Anil Gross CNP LAB BLOOD ORDERABLES Albertina l Result [facility] [address] [place] [address] [phone] * (ABNORMAL) Comprehensive Metabolic Panel (07/26/2024 11:45 AM EST) Only the most recent of2 resultswithin the time period is included. Sodium 137 135 - 145 mmol/L [facility] Potassium 3.2(L) 3.3 - 5.1 mmol/L [facility] Chloride 103 96 - 108 mmol/L [facility] Carbon Dioxide 25 22 - 29 mmol/L [facility] Anion Gap 12 12 - 20 [facility] Urea Nitrogen (BUN) 8(L) 9 - 16 mg/dL [facility] Creatinine, Serum 0.63 0.5 - 1.4 mg/dL [facility] Estimated Glomerular Filt Rate >60 [facility] Comment:Chronic Kidney Disea se: Estimated GFR < 60 mL/min/1.88w8Vrmxgw Kidney Disease: Estimated GFR < 15 mL/min/1.73m2 Glucose 147(H) 60 - 115 mg/dL [facility] Calcium 8.6 8.4 - 10.2 mg/dL [facility] Bilirubin, Total 0.9 0.0 - 1.0 mg/dL [facility] Aspartate Amino Transferase 40(H) 5 - 37 U/L [facility] Alanine Aminotransferase 23 0 - 40 U/L [facility] Total Protein 7.8 6.5 - 8.0 g/dL [facility] Albumin Level 3.9 3.5 - 5.0 g/dL [facility] Alkaline Phosphatase 69 39 - 117 U/L [facility] Blood Venous blood specimen / Unknown 07/26/2024 11:45 AM EST 07/26/2024 1:23 PM EST us Phyllis Roach MD LAB BLOOD ORDERAB LES Final Result [facility] [address] [place] [phone] * (ABNORMAL) POCT HGB A1C (05/10/2024 [...] Media Lot # [id number] Lot# Expiration Date Blood Capillary blood specimen / Unknown 05/10/2024 2:23 PM EST Phyllis Roach MD POINT OF CARE EKATERINA T ENTER/EDIT ORDERABLES Final Result * Vitamin B12 (Cobalamin) and Folate Panel, Serum (05/09/2024 10:55 AM EST) Vitamin B12 322 200 - 900 pg/mL [facility] Comment:NORMAL 200-900 PG/ML INDETERMINATE 160-199 PG/ML DEFICIENT < 160 PG/ML Folate 5.0 > or = 4.0 ng/mL [facility] Comment:Reference Values:> o r = 4.0 ng/mL< 4.0 ng/mL suggests folate deficiency Methotrexate, aminopterin and folinic acid(leucovorin) are chemotherapeutic agents whose molecularstructures are similar to folate; therefore, the Architectfolate assay cannot be used for patients using these drugs. Blood 05/09/2024 10:5 5 AM EST 05/09/2024 1:45 PM EST Phyllis Roach MD LAB BLOOD ORDERAB LES Final Result [facility] [address] [place] [phone] * Albumin, Random Urine W/Creatinine (05/09/2024 10:55 AM EST) Creatinine, Urine 262.21 mg/dL [facility] Microalbumin Urine 14.0 mg/L [facility] Microalbum Creatinine Ratio Ur 5.3 <30 ug/mg cr [facility] Comment:Albumin/Creatinine R atio Reference Ranges: Normal: < 30 ug/mg creatinine Microalbuminuria: 30 - 300 ug/mg creatinineClinical Albuminuria: > 300 ug/mg creatinine Urine (Urine, Random) 05/09/2024 10:55 AM EST 05/09/2024 1:10 PM EST us Phyllis Roach MD LAB URINE ORDERAB LES Final Result [facility] [address] [place] [address] [phone] * (ABNORMAL) CBC auto differential (05/09/2024 10:55 AM EST) Pathologist [facility] White Blood Count 9.7 4.8 - 10.8 X10*3/uL [facility] Red Blood Count 5.10 4.60 - 5.80 X10*6/uL [facility] Hemoglobin 15.5 14.0 - 18.0 g/dl [facility] Hematocrit 45.5 42.0 - 52.0 % [facility] Mean Corpuscular Volume 89.2 80.0 - 98.0 fL [facility] Mean Corpuscular Hemoglobin 30.4 27.0 - 33.0 pg [facility] Mean Corpuscular HGB Conc 34.1 31.0 - 36.0 g/dl [facility] Red Cell Distribution Width 13.4 11.0 - 16.0 % [facility] Platelet Count 189 160 - 400 X10*3/uL [facility] Mean Platelet Volume 10.4 9.4 - 12.4 fL [facility] Neutrophils Percent Auto 61.9 45 - 73 % [facility] Imm Gran Pct Auto 1.4(H) 0.0 - 0.4 % [facility] Lymphocytes Percent Auto 23.4 20 - 40 % [facility] Monocytes Percent Auto 11.7(H) 2 - 11 % [facility] Eosinophils Percent Auto 1.3 0 - 4 % [facility] Basophils Percent Auto 0.3 0 - 2 % [facility] NRBC Pct Auto 0.0 0.0 - 0.2 /100WBC [facility] Neutrophils Absolute Auto 6.0 2.0 - 8.3 x10*3/uL [facility] Imm Gran Abs Auto 0.14(H) 0.00 - 0.03 X10*3/uL [facility] Lymphocytes Absolute Auto 2.3 1.2 - 4.9 X10*3/uL [facility] Monocytes Absolute Auto 1.1 0.1 - 1.2 X10*3/uL [facility] Eosinophils Absolute Auto 0.1 0.0 - 0.4 X10*3/uL [facility] Basophils Absolute Auto 0.0 0.0 - 0.2 X10*3/uL [facility] NRBC Abs Auto 0.000 0.0 - 0.012 X10*3/uL [facility] Blood Venous blood specimen / Unknown 05/09/2024 10:55 AM EST 05/09/2024 1:43 PM EST us Phyllis Roach MD LAB BLOOD ORDERAB LES Final Result [facility] [address], [place] [phone] * Chlamydia/N. Gonorrhoeae RNA, TMA, Urogenitial (05/09/2024 10:55 AM EST) CT PCR NOT DETECTED Not Detect. [facility] Comment:A not detected test result does [...] psychologicalconsequences. NG PCR NOT DETECTED Not Detect. [facility] Comment:A not detected test result does [...] AM EST 05/09/2024 1:10 PM EST Narrative [facility] - 05/09/2024 3:27 PM EST Urine us Phyllis Roach MD LAB MICROBIOLOGY - GENERAL ORDERABLES Final Result [facility] [address] [place] [phone] [phone] * (ABNORMAL) Hemoglobin A1c (05/09/2024 10:55 AM EST) Hemoglobin A1c 6.1(H) <6.0 % [facility] Comment:Hemoglobin A1C Refer ence Range Adults: 4.8 - 6.0 % Non diabetic: < 6.0 % Goal: < 7.0 %Additional Action Suggested: > 8.0 %Note: Hemoglobin A1c results are invalid for patients with abnormal amounts of HbF. Blood transfusions may impact the HbA1c concentration in the patient sample. Estimated Average Glucose 128 mg/dL [facility] Comment:eAG = Estimated ave rage glucose which is %A1C expressed asaverage glucose, using the formula of the F5W-OzjvyyqBpyhhhi Glucose study (ADAG), Diabetes Care, Vol.31,#8,Jan. 2007 Blood Venous blood specimen / Unknown 05/09/2024 10:55 AM EST 05/09/2024 1:43 PM EST Phyllis Roach MD LAB BLOOD ORDERAB LES Final Result [facility] [address] [place] [phone] * (ABNORMAL) Lipid Panel, Standard (05/09/2024 10:55 AM EST) Triglycerides 106 <150 mg/dL [facility] Comment:Desirable Triglyceri de: less than 150 mg/dLBorderline High Triglyceride 150-199 mg/dLHigh Triglyceride: 200-499 mg/dLVery High Triglyceride: greater than or equal to 5OO mg/dL Cholesterol 138 <200 mg/dL [facility] Comment:Desirable Cholestero l: less than 200 mg/dLBorderline High Cholesterol: 200-239 mg/dLHigh Cholesterol: greater than 239 mg/dL LDL Cholesterol Calculated 84 <100 mg/dL [facility] Comment:Desirable LDL: less than 100 mg/dLNear Optimal/Above Optimal LDL: 110- 129 mg/dLBorderline High LDL: 130-159 mg/dLHigh LDL: 160-189 mg/dLVery High LDL: greater than or equal to 190 mg/dL HDL Cholesterol 33(L) >40 mg/dL [facility] Comment:Desirable HDL: great er than 40 mg/dL Note: This HDL assay may give artificially low results in patients with liver disease. Blood Venous blood specimen / Unknown 05/09/2024 10:55 AM EST 05/09/2024 1:45 PM EST Phyllis Roach MD LAB BLOOD ORDERAB LES Final Result Performing Organization Address [facility] Co de Phone Number [facility] [address] [place] [phone] * Hepatitis C Antibody with Reflex to HCV, RNA, Quantitative, Real-Time PCR (09/15/2023 10:24 AM EDT) Hepatitis C Antibody Nonreactive Nonreactive [facility] Comment:Antibodies to HCV no t detected; does not exclude early acuteHCV infection. Blood Venous blood specimen / Unknown 09/15/2023 10:24 AM EDT 09/15/2023 11:20 AM EDT Phyllis Roach MD LAB BLOOD ORDERAB LES Final Result Performing Organization Address [facility] Co de Phone Number [facility] [address] [place] [phone] * HIV-1/2 Antigen and Antibodies, Fourth Generation, with Reflexes (09/15/2023 10:24 AM EDT) HIV AB/AG Nonreactive Nonreactive [facility] Comment:HIV-1 p24 Ag and/or HIV-1/HIV-2 Ab not detected.A test result that is nonreactive does not exclude thepossibility of exposure to or infection with HIV-1 and/orHIV-2. Nonreactive results in this assay for individualswith prior exposure to HIV-1 and/or HIV-2 may be due toantigen and antibody levels that are below the limit ofdetection of this assay.The Needium HIV Ag/Ab Combo assay result andsupplemental assay results should be interpreted inconjunction with the patient's clinical presentation,history and other laboratory results. If the results areinconsistent with clinical evidence, additional testing issuggested to confirm the result. Blood Venous blood specimen / Unknown 09/15/2023 10:24 AM EDT 09/15/2023 11:20 AM EDT Phyllis Roach MD LAB BLOOD ORDERAB LES Final Result [facility] [address] [place] [phone] from Last 3 Months or Most Recently Relevant to Health Maintenance Insurance [facility] C3 HSN FULL Care Teams Front Desk Relationship Specialty Start Date End Date Phyllis Skinner MD [address] [place] [phone] PCP - General Internal Medicine 07/29/23 [facility] 05/23/24
--- OUTSIDE RECORDS SUMMARY | 2024-07-26 16:51 | XMS_ITS | Encounter Summary ---
Author Organization [employer] Address [address] [place] [address] Care Team Providers Care Philosophy Faculty Member Name Role Phone Phyllis Skinner MD Primary Care Pro vider Reason for Visit * Reason Comments Care Coordination CHW outreach for SDO H PT-1 and food needs-referral completed Encounter Details Date Type Department Care Team (Latest Contact Info) Description 07/07/2024 Patient Outreach [facility] [address] [place] [address] Phyllis Skinner MD [address] [place] [address] Care Coordination (CHW outreach for SDOH PT-1 [...] send out in behalf of patient for [facility] [place] [facility]t. Patient verbalizes understandin g, and able to agree with plan to follow up. Patient educated on extended clinic hours on Mondays through Wednesdays, and Walk-In Urgent Care Located in [facility] of [facility]. Patient provided with after-hours line for [facility], , which offer night time triage service and option to transfer to recruiting and selection consultant provider if needed. documented in this encounter Plan of Treatment Upcoming Encounters Date Type Department Care Team (Late st Contact Info) Description 08/25/2024 1:30 PM EST Office Visit [facility] [address] [place] [address] Anil Gross CNP [address] [place] [phone] documented as of this encounter Visit Diagnoses Not on filedocumented in this encounter Additional Health Concerns Assessment Noted Time PHQ-9 Depression Total Score: 17 024 11:12 AM EST documented as of this encounter Care Teams Philosophy Faculty Member Relationship Specialty Start Date End Date Phyllis Skinner MD [address] [place] [phone] PCP - General Internal Medicine 07/29/23 [facility] 05/23/24 documented as of this encounter
--- OUTSIDE RECORDS SUMMARY | 2024-07-26 16:51 | XMS_ITS | Encounter Summary ---
Author Organization [employer] Address [address] [place] [address] 7t [place] [address] Care Team Providers Care Archival Studies Professor Name Role Phone Phyllis Skinner MD Primary Care Pro vider Reason for Visit * Reason Onset Date Comments Chart Prep 07/11/2024 Encounter Details Date Type Department Care Team (Late st Contact Info) Description 07/11/2024 Telephone [facility] MEDICINE [address] [place] [address] Phyllis Skinner MD [address] [place] [address] Chart Prep Social History Tobacco Use Types [...] with others, in a hotel, in a long term, living outside on the street, on a [...] Description 08/25/2024 1:30 PM EST Office Visit [facility] MEDICINE [address] [place] [address] Anil Gross CNP [address] [place] [address] documented as of this encounter Visit Diagnoses Not on filedocumented in this encounter Additional Health Concerns Assessment Noted Time PHQ-9 Depression Total Score: 17 024 11:12 AM EST documented as of this encounter Care Teams Archival Studies Professor Relationship Specialty Start Date End Date Phyllis Skinenr MD [address] [place] [address] PCP - General Internal Medicine 07/29/23 [facility] 05/23/24 documented as of this encounter
--- OUTSIDE RECORDS SUMMARY | 2024-07-26 16:51 | XMS_ITS | Encounter Summary ---
Author Organization [facility] Address [address] [place] [address] Care Team Providers Care Department Manager Name Role Phone Tim Wright MD Primary Care Provider Adolfoa ble Encounter Details Date Type Department Care Team Description 01/28/2018 Hospital Medical Records [address] [place] [address] Jeffy Villagomez MD [address] [place] [address] [address] [place], [place] [phone] Social History Tobacco Use Types Packs/Day Years Used Date Smoking Tobacco: Never Smokeless Tobacco: Never Alcohol Use Standard Drinks/Week Comments Yes 0 (1 standard drink = 0.6 oz pur e alcohol) social Sex Assigned at Date Recorded Not on file documented as of this encounter Plan of Treatment Not on file documented as of this encounter Visit Diagnoses Not on filedocumented in this encounter Care Teams Department Manager Relationship Specialty Start Date End Date Tim Wright MD PCP - General Internal Medicine 11/18/17 documented as of this encounter
--- OUTSIDE RECORDS SUMMARY | 2024-07-26 16:51 | XMS_ITS | Encounter Summary ---
Author Organization [employer] Address [address] [place] [address] 7t [place] [address] Care Team Providers Care Machine Etcher Name Role Phone Phyllis Skinner MD Primary Care Pro vider Reason for Visit * Reason Onset Date Comments T/C change PCP request 07/10/2024 Encounter Details Date Type Department Care Team (Late st Contact Info) Description 07/10/2024 Telephone [facility] MEDICINE [address] [place], [place] [phone] [facility] change PCP request Social History Tobacco [...] the past 12 months, has t he [employer], gas, oil or water company threatened to [...] Description 08/25/2024 1:30 PM EST Office Visit [facility] MEDICINE [address] [place], [place] [phone] Anil Gross CNP [address] [place] [address] documented as of this encounter Visit Diagnoses Not on filedocumented in this encounter Additional Health Concerns Assessment Noted Time PHQ-9 Depression Total Score: 17 024 11:12 AM EST documented as of this encounter Care Teams Machine Etcher Relationship Specialty Start Date End Date Phyllis Skinner MD [address] [place] [address] PCP - General Internal Medicine 07/29/23 [facility] 05/23/24 documented as of this encounter
--- OUTSIDE RECORDS SUMMARY | 2024-07-26 16:51 | XMS_ITS | Clinical Summary ---
Author Organization [facility] Address [address] [place] [address] Care Team Providers Care Builder Beam Name Role Phone Larisa Phillips [facility] Primary Care Provider [phone] Source Comments PLEASE NOTE, if this patient [...] stripsIndications: Type 2 diabetes mellitus without complication ([facility]) 1 Strip 2 (two) times daily as [...] hr tabletIndications: Post-traumatic stress disorder,Bipolar II disorder ([facility]) Take 2 tabs by mouth daily [...] Diagnosed Date Homelessness 08/18/2018 Bipolar 1 disorder ([facility]) 08/26/2017 Incisional hernia, without obstruction or gangre ne 03/16/2017 Overview (12/20/2017): Will plan for laparoscopic or DaVinci repair. Will need anticoagulation d/t morbid obesity. Post-traumatic stress disorder 12/22/2016 Alcohol use disorder, modera te, in early remission ([facility]) 12/22/2016 Anxiety and depression 10/13/2016 Insomnia secondary to depression with anxiety GERD (gastroesophageal reflux disease) 7 Vitamin D deficiency 09/06/2015 Morbid obesity with BMI of 50.0-59.9, adult ([facility]) 09/05/2015 Overview (03/02/2016): [facility] weight loss specialist appt 11/12/15. Type 2 diabetes mellitus without complication ([facility]) 09/05/2015 Osteoarthritis of knees, bilateral 09/05/2015 Overview (12/25/2015): Mild bilateral tri-compartmental OA both knee's via x-rays 09/16/15 at [facility] Bilateral low back pain with sciatica 09/05/2015 Overview (03/02/2016): Early multilevel degenerative bone spurring anterior lumbar spine via x-rays 09/16/15 at [facility]. Patient seen for PT 02/17/16 at [facility] but d/c due to poor activity tolerance and limited motivation. They recommend referral [facility] comprehensive weight management program which I already did and he DNKA 11/12/15. 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
--- OUTSIDE RECORDS SUMMARY | 2024-07-26 16:51 | XMS_ITS | Encounter Summary ---
Author Organization [employer] Address [address] [place] [address] 7t [place] [address] Care Team Providers Care Slasher Tender Name Role Phone Phyllis Skinner MD Primary Care Pro vider Reason for Visit * Reason Onset Date Comments Change PCP 07/10/2024 Encounter Details Date Type Department Care Team (Late st Contact Info) Description 07/10/2024 Telephone [facility] MEDICINE [address] [place] [address] Phyllis Skinner MD [address] [place] [address] Change PCP Social History Tobacco Use Types [...] with others, in a hotel, in a long-term, living outside on the street, on a [...] has not received. Please contact pt at [phone]. (Turkmen Speaker) documented in this encounter Plan of Treatment Upcoming Encounters Date Type Department Care Team (Late st Contact Info) Description 08/25/2024 1:30 PM EST Office Visit [facility] MEDICINE [address] [place] [address] Anil Gross CNP [address] [place] [address] documented as of this encounter Visit Diagnoses Not on filedocumented in this encounter Additional Health Concerns Assessment Noted Time PHQ-9 Depression Total Score: 17 024 11:12 AM EST documented as of this encounter Care Teams Slasher Tender Relationship Specialty Start Date End Date Phyllis Skinner MD [address] [place] [address] PCP - General Internal Medicine 07/29/23 [facility] 05/23/24 documented as of this encounter
--- OUTSIDE RECORDS SUMMARY | 2024-07-26 16:51 | XMS_ITS | Encounter Summary ---
Author Organization [employer] Address [address] [facility] 7t [place] [address] Care Team Providers Care Educational Therapist Name Role Phone Phyllis Skinner MD Primary [...] with others, in a hotel, in a mcc, living outside on the street, on a [...] Description 08/25/2024 1:30 PM EST Office Visit [facility] MEDICINE [address] [place] [address] Anil Gross CNP [address] [place] [address] documented as of this encounter Visit Diagnoses Not on filedocumented in this encounter Additional Health Concerns Assessment Noted Time PHQ-9 Depression Total Score: 17 024 11:12 AM EST documented as of this encounter Care Teams Educational Therapist Relationship Specialty Start Date End Date Phyllis Skinner MD [address] [place] [address] PCP - General Internal Medicine 07/29/23 [facility] 05/23/24 documented as of this encounter
--- OUTSIDE RECORDS SUMMARY | 2024-07-26 16:51 | XMS_ITS | Encounter Summary ---
Author Organization [employer] Address [address] [place] [address] 7t [place] [address] Care Team Providers Care Litigation Specialist Name Role Phone Phyllis Skinner MD Primary Care Pro vider Reason for Visit * Reason Onset Date Comments PT-1 07/07/2024 Encounter Details Date Type Department Care Team (Late st Contact Info) Description 07/07/2024 Telephone [facility] MEDICINE [address] [place] [address] Phyllis Skinner MD [address] [place] [address] PT-1 Social History Tobacco Use Types Packs/Day [...] Y/N: Yes Provider name or facility name: [facility] Facility Address: [address] [place] [address] Escort needed: Y/N: No Do you have a wheelchair: Y/N: No If yes- Manual or electric: N/A (uses walker) Visits: 5 Monthly documented in this encounter Plan of Treatment Upcoming Encounters Date Type Department Care Team (Late st Contact Info) Description 08/25/2024 1:30 PM EST Office Visit [facility] MEDICINE [address] [place] [address] Anil Gross CNP [address] [place], [place] [phone] documented as of this encounter Visit Diagnoses Not on filedocumented in this encounter Additional Health Concerns Assessment Noted Time PHQ-9 Depression Total Score: 17 12/30/2 024 11:12 AM EST documented as of this encounter Care Teams Litigation Specialist Relationship Specialty Start Date End Date Phyllis Skinner MD [address] [place] [address] PCP - General Internal Medicine 07/29/23 [facility] 05/23/24 documented as of this encounter
--- OUTSIDE RECORDS SUMMARY | 2024-07-26 16:51 | XMS_ITS | Encounter Summary ---
Author Organization [employer] Address [address] [place] [address] 7t [place] [address] Care Team Providers Care Scaffold Builder Name Role Phone Phyllis Skinner MD Primary Care Pro vider Reason for Referral * Imaging (Routine) - Authorized Specialty Diagnoses / Procedures Referred By Parth garcia Referred To Contact Cardiology Diagnoses Chronic cough Edema, lower extremity Procedures Transthoracic Echo (TTE) Complete Anil Gross CNP [address] [place] [address] Phone: tel: fax: [address] Phone: tel: fax: Referral ID Status Reason Start Date Expiration Date Visits Requested Visits Authorized [id number] Authorized Perform Procedure 07/26/2024 07/26/2025 1 1 * Consultation (Routine) - Pending Review Specialty Diagnoses / Procedures Referred By Parth garcia Referred To Contact Sleep Medicine Diagnoses WARREN (obstructive sleep apnea) Anil Gross CNP [address] [place] [address] Phone: tel: fax: Referral ID Status Reason Start Date Expiration Date Visits Requested Visits Authorized [id number] Pending Review Specialty Services Required 07/26/2024 07/26/2025 1 1 * PFT (Routine) - Authorized Specialty Diagnoses / Procedures Referred By Parth garcia Referred To Contact Diagnoses Shortness of breath Procedures Pulmonary Function Test Anil Gross CNP [address] [place] [address] Phone: tel: fax: [address] Phone: tel: fax: Referral ID Status Reason Start Date Expiration Date V isits Requested Visits Authorized [id number] Authorized 07/26/2024 07/26/2025 1 1 Encounter Details Date Type Department Care Team (Late st Contact Info) Description 07/26/2024 11:15 AM EST Office Visit [facility] MEDICINE [address] [place] [address] Anil Gross CNP [address] [place] [address] Shortness of breath (Primary Dx); WARREN (obstructive [...] the past 12 months, has t he [employer], gas, oil or water company threatened to [...] * Assessment & Plan Note - Anil Grsos CNP - 07/26/2024 11:46 AM EST Associated [...] 1:30 PM EST Office Visit [facility] MEDICINE [address] [place] [address] Anil Gross CNP [address] [place] [address] Scheduled Orders Name Type Priority Associated Diagnoses [...] B Type Natriuretic Peptide 148(H) <100 pg/mL [facility] Comment:For those patients w ho are being treated with Natrecor(nesiritide, recombinant BNP), BNP testing should beperformed at least two hours post treatment in order toensure that only endogenous levels of BNP are detected. Blood Venous blood specimen / Unknown 07/26/2024 11:45 AM EST 07/26/2024 1:25 PM EST [facility] BLOOD ORDERABLES Albertina l Result [facility] [address] [place] [address] [phone] documented in this encounter Visit Diagnoses Diagnosis Shortness of breath- Primary WARREN (obstructive sleep apnea) Obstructive sleep apnea (adult) (pediatric) Chronic cough Cough Edema, lower extremity documented in this encounter Additional Health Concerns Assessment Noted Time PHQ-9 Depression Total Score: 17 024 11:12 AM EST documented as of this encounter Care Teams Scaffold Builder Relationship Specialty Start Date End Date Phyllis Skinner MD [address] [place] [address] PCP - General Internal Medicine 07/29/23 [facility] 05/23/24 documented as of this encounter
--- OUTSIDE RECORDS SUMMARY | 2024-07-26 16:51 | XMS_ITS | Clinical Summary ---
Author Organization [facility] Address [address] [place] [address] Care Team Providers Care Civil Defense Director Name Role Phone Tim Wright MD Primary Care Provider Unavaila ble Allergies No known active allergies Medications Medication Sig Dispensed Refills Start Date End Date Status gabapentin (NEURONTIN) 400 MG capsule Take 400 mg by mouth 3 times daily. 0 Active naproxen (NAPROSYN) 500 MG tablet Take 500 mg by mouth 2 times daily (with meals). 0 Active Cholecalciferol 2000 UNITS Chew Tab Take by mouth. 0 Active Active Problems Problem Noted Date Incisional hernia without obstruction or gangrene 12/09/2017 Social History Tobacco Use Types Packs/Day Years Used Date Smoking Tobacco: Never Smokeless Tobacco: Never Alcohol Use Standard Drinks/Week Comments Yes 0 (1 standard drink = 0.6 oz pur e alcohol) social Sex Assigned at Date Recorded Not on file Last Filed Vital Signs Vital Sign Reading Time Taken Comments Blood Pressure 132/89 02/17/2018 3:24 PM EDT Pulse 80 12/09/2017 1:30 PM EDT Temperature 36.9 ??C (98.4 ??F) 12/09/2017 1:30 PM ED T Respiratory Rate - - Oxygen Saturation - - Inhaled Oxygen Concentration - - Weight 171 kg (377 lb) 12/09/2017 1:30 PM EDT Height 177.8 cm (5' 10 ) 12/09/2017 1:30 PM EDT Body Mass Index 54.09 12/09/2017 1:30 PM EDT Plan of Treatment Health Maintenance Due Date Last Done Comments Covid-19 Vaccine (#1) 1983 DTAP/TDAP/TD (1 - Tdap) 2002 CHOLESTEROL SCREENING 2003 BASELINE HEALTH EXAM 40-64 2023 INFLUENZA (#1) 2024 BMI CHECK/ADVISE 06/28/2024 12/09/2017 PNEUMOCOCCAL VACCINE FOR HIGH RISK PATIENTS (#1) 02/06 Care Teams Civil Defense Director Relationship Specialty Start Date End Date Tim Wrihgt MD PCP - General Internal Medicine 11/18/17
--- OUTSIDE RECORDS SUMMARY | 2024-07-26 16:51 | XMS_ITS | Encounter Summary ---
Author Organization [employer] Address [address] [facility] 7t [place] [address] Care Team Providers Care Cabin Crew Name Role Phone Phyllis Skinner MD Primary Care Pro vider Encounter Details Date Type Department Care Team (Late st Contact Info) Description 05/19/2024 Telephone [facility] MEDICINE [address] [place] [address] Phyllis Skinner MD [address] [place] [address] Social History Tobacco Use Types Packs/Day Years [...] Visit [facility] MEDICINE [address] [place] [address] Anil Gross CNP [address] [place] [address] documented as of this encounter Visit Diagnoses Not on filedocumented in this encounter Additional Health Concerns Assessment Noted Time PHQ-9 Depression Total Score: 17 024 9:10 AM EDT documented as of this encounter Care Teams Cabin Crew Relationship Specialty Start Date End Date Phyllis Skinner MD [address] [place] [address] PCP - General Internal Medicine 07/29/23 [facility] 05/23/24 documented as of this encounter
--- OUTSIDE RECORDS SUMMARY | 2024-07-26 16:51 | XMS_ITS | Encounter Summary ---
Author Organization [employer] Address [address] [place] [address] 7t [place] [address] Care Team Providers Care Surgical Services Manager Name Role Phone Phyllis Skinner MD Primary Care Pro vider Reason for Visit * Reason Onset Date Comments No Show 07/07/2024 Encounter Details Date Type Department Care Team (Late st Contact Info) Description 07/07/2024 Telephone [facility] MEDICINE [address] [place] [address] Phyllis Skinner MD [address] [place] [address] No Show Social History Tobacco Use Types [...] AM EST TC placed to pt via [employer] court interpreter (Trinity ID#[id number]). Offered pt appointment today 07/07/24 at 12:00 PM on Red Team. Pt reports he is SOB at night when sleeping, but this is not a new symptom. He reports he has had lung pain and SOB when sleeping for several years. Pt unable to come today 07/07/24 due to transportation to [facility] as he walks. Pt rescheduled for appointment with Anil Gross on 07/26/24 at 11:15 AM. * Telephone Encounter - Chad Sultana - 07/07/2024 10:47 AM EST Tc from pt calling in regards to message prior requesting to reschedule sick onsite visit. Please contact pt at [phone]. (Mongolian Speaker) * Telephone Encounter - Valeria Elvin - 07/07/2024 10:42 AM EST Patient no show to sick onsite appointment on 07/07/24 with Hailee Lr. documented in this encounter Plan of Treatment Upcoming Encounters Date Type Department Care Team (Late st Contact Info) Description 08/25/2024 1:30 PM EST Office Visit [facility] MEDICINE [address] [place] [address] Anil Gross CNP [address] [place], [place] [phone] documented as of this encounter Visit Diagnoses Not on filedocumented in this encounter Additional Health Concerns Assessment Noted Time PHQ-9 Depression Total Score: 17 024 11:12 AM EST documented as of this encounter Care Teams Surgical Services Manager Relationship Specialty Start Date End Date Phyllis Skinner MD [address] [place] [address] PCP - General Internal Medicine 07/29/23 [facility] 05/23/24 documented as of this encounter
--- OUTSIDE RECORDS SUMMARY | 2024-07-26 16:52 | XMS_ITS | Encounter Summary ---
Author Organization [employer] Address [address] [place] [address] 7t [place] [address] Care Team Providers Care Non Destructive Evaluation Specialist Name Role Phone Phyllis Skinner MD Primary Care Pro vider Reason for Visit * Reason Onset Date Comments PT1 12/06/2023 Encounter Details Date Type Department Care Team (Late st Contact Info) Description 12/06/[address] [facility] MEDICINE [address] [place] [address] Phyllis Skinner MD [address] [place] [address] PT1 Social History Tobacco Use Types Packs/Day [...] with others, in a hotel, in a skilled nursing, living outside on the street, on a [...] Y/N: Yes [facility] Facility Address: [address] [place] [address] Escort needed: Y/N: No Do you have a wheelchair: Y/N: No If yes- Manual or electric: n/a Visits: 6 a year documented in this encounter Plan of Treatment Upcoming Encounters Date Type Department Care Team (Late st Contact Info) Description 08/25/2024 1:30 PM EST Office Visit [facility] MEDICINE [address] [place], [place] [phone] Anil Gross CNP [address] [place], [place] [phone] documented as of this encounter Visit Diagnoses Not on filedocumented in this encounter Additional Health Concerns Assessment Noted Time PHQ-9 Depression Total Score: 24 024 11:50 AM EST documented as of this encounter Care Teams Non Destructive Evaluation Specialist Relationship Specialty Start Date End Date Phyllis Skinner MD [address] [place] [address] PCP - General Internal Medicine 07/29/23 [facility] 05/23/24 documented as of this encounter
--- OUTSIDE RECORDS SUMMARY | 2024-07-26 16:52 | XMS_ITS | Encounter Summary ---
Author Organization [employer] Address [address] [facility] 7t [place] [address] Care Team Providers Care Logistics Associate Name Role Phone Phyllis Skinner MD Primary Care Pro vider Reason for Visit * Reason Onset Date Comments Chart Prep 07/05/2024 Encounter Details Date Type Department Care Team (Late st Contact Info) Description 07/05/2024 Telephone [facility] MEDICINE [address] [place] [address] Bertha Cook MA Chart Prep Social History [...] Psychiatry 2nd attempt [facility]. Screenings: Eye Exam Overdue care gaps: Glucose documented in this encounter Plan of Treatment Upcoming Encounters Date Type Department Care Team (Late st Contact Info) Description 08/25/2024 1:30 PM EST Office Visit [facility] MEDICINE [address] [place] [address] Anil Gross CNP [address] [place] [address] documented as of this encounter Visit Diagnoses Not on filedocumented in this encounter Additional Health Concerns Assessment Noted Time PHQ-9 Depression Total Score: 17 024 11:12 AM EST documented as of this encounter Care Teams Logistics Associate Relationship Specialty Start Date End Date Phyllis Skinner MD [address] [place] [address] PCP - General Internal Medicine 07/29/23 [facility] 05/23/24 documented as of this encounter
--- OUTSIDE RECORDS SUMMARY | 2024-07-26 16:52 | XMS_ITS | Encounter Summary ---
Author Organization [employer] Address [address] [place] [address] 7t [place] [address] Care Team Providers Care Travel Attendants Name Role Phone Phyllis Skinner MD Primary Care Pro vider Reason for Visit * Reason Onset Date Comments Referral 07/04/2024 Encounter Details Date Type Department Care Team (Late st Contact Info) Description 07/04/2024 Telephone [facility] MEDICINE [address] [place] [address] Phyllis Skinner MD [address] [place] [address] Referral Social History Tobacco Use Types Packs/Day [...] with others, in a hotel, in a halfway, living outside on the street, on a [...] study on 07/30/23 to be changed from [facility] in to the [facility] in [place] due to pt not having transportation. If any questions contact pt at [phone] documented in this encounter Plan of Treatment Upcoming Encounters Date Type Department Care Team (Late st Contact Info) Description 08/25/2024 1:30 PM EST Office Visit [facility] MEDICINE [address] [place], [place] [phone] Anil Gross CNP [address] [place], [place] [phone] documented as of this encounter Visit Diagnoses Not on filedocumented in this encounter Additional Health Concerns Assessment Noted Time PHQ-9 Depression Total Score: 17 024 11:12 AM EST documented as of this encounter Care Teams Travel Attendants Relationship Specialty Start Date End Date Phyllis Skinner MD [address] [place] [phone] PCP - General Internal Medicine 07/29/23 [facility] 05/23/24 documented as of this encounter
--- OUTSIDE RECORDS SUMMARY | 2024-07-26 16:52 | XMS_ITS | Encounter Summary ---
Author Organization [employer] Address [address] [facility] [address] [place] [address] Care Team Providers Care Wrapper Stripper Name Role Phone Phyllis Skinner MD Primary Care Pro vider Reason for Visit * Reason Comments Care Coordination CHW outreach for SDO H PT-1 and food needs-referral completed Encounter Details Date Type Department Care Team (Latest Contact Info) Description 06/30/2024 Patient Outreach [facility] MEDICINE [address] [place] [address] Phyllis Skinner MD [address] [place] [address] Care Coordination (CHW outreach for SDOH PT-1 [...] Wednesdays, and Walk-In Urgent Care Located in [facility]. Patient provided with after-hours line for [facility], , which offer night time triage service and option to transfer to automation technologist provider if needed. documented in this encounter Plan of Treatment Upcoming Encounters Date Type Department Care Team (Late st Contact Info) Description 08/25/2024 1:30 PM EST Office Visit [facility] MEDICINE [address], [place] [phone] Anil Gross CNP [address] [place], [place] [phone] documented as of this encounter Visit Diagnoses Not on filedocumented in this encounter Additional Health Concerns Assessment Noted Time PHQ-9 Depression Total Score: 17 024 11:12 AM EST documented as of this encounter Care Teams Wrapper Stripper Relationship Specialty Start Date End Date Phyllis Skinner MD [address] [place], [place] [phone] PCP - General Internal Medicine 07/29/23 [facility] 05/23/24 documented as of this encounter
--- OUTSIDE RECORDS SUMMARY | 2024-07-26 16:52 | XMS_ITS | Encounter Summary ---
Author Organization [employer] Address [address] [place] [address] 7[address] [place] [address] Care Team Providers Care Care Worker Name Role Phone Phyllis Skinner MD Primary Care Pro vider Reason for Visit * Reason Onset Date Comments Medication Question 06/30/2024 Referral 06/30/2024 Encounter Details Date Type Department Care Team (Late st Contact Info) Description 06/30/2024 Telephone [facility] MEDICINE [address] [place] [address] Phyllis Skinner MD [address] [place], [place] [phone] Medication Question; Referral Social History Tobacco Use [...] for [place] on file from 06/19/24, called [facility] pharmacy, PA went through, pt can pickling solution maker later today. Called pt to notify of this, [facility] verbalized understanding [facility]. Asked pt about referrals he called in about, pt asking for pulmonology referral due to ongoing right lung pain since 2019. Pt said that [facility] said he should see crown ironer, unclear why. No referral in chart, advised [...] as sleep medicine referral to [facility] if [facility]. Please contact pt at [phone]. (Chinese Speaker) documented in this encounter Plan of Treatment Upcoming Encounters Date Type Department Care Team (Late st Contact Info) Description 08/25/2024 1:30 PM EST Office Visit [facility] MEDICINE [address] [place], [place] [phone] Anil Gross CNP [address] [place], [place] [phone] documented as of this encounter Visit Diagnoses Not on filedocumented in this encounter Additional Health Concerns Assessment Noted Time PHQ-9 Depression Total Score: 17 024 11:12 AM EST documented as of this encounter Care Teams Care Worker Relationship Specialty Start Date End Date Phyllis Skinner MD [address] [place], [place] [phone] PCP - General Internal Medicine 07/29/23 [facility] 05/23/24 documented as of this encounter
--- OUTSIDE RECORDS SUMMARY | 2024-07-26 16:52 | XMS_ITS | Encounter Summary ---
Author Organization [employer] Address [address] [place] [address] [address] [place] [address] Care Team Providers Care Can Carrier Name Role Phone Phyllis Skinner MD Primary Care Pro vider Reason for Visit * Reason Onset Date Comments PT-1 06/30/2024 Encounter Details Date Type Department Care Team (Late st Contact Info) Description 06/30/2024 Telephone [facility] MEDICINE [address] [place] [address] Phyllis Skinner MD [address] [place] [address] PT-1 Social History Tobacco Use Types Packs/Day [...] Y/N: Yes Provider name or facility name: [facility] Facility Address: [address] [place] [address] Escort needed: Y/N: Yes Do you have a wheelchair: Y/N: No (uses cane) If yes- Manual or electric: N/A Visits: 8 times monthly - Patient calling requesting PT1 Home Address verified: Y/N: Yes Provider name or facility name: [facility] Facility Address: [address] [place] [address] Escort needed: Y/N: Yes Do you have a wheelchair: Y/N: No If yes- Manual or electric: N/A Visits: 5 monthly documented in this encounter Plan of Treatment Upcoming Encounters Date Type Department Care Team (Late st Contact Info) Description 08/25/2024 1:30 PM EST Office Visit [facility] MEDICINE [address] [place] [address] Anil Gross CNP [address] [place] [address] documented as of this encounter Visit Diagnoses Not on filedocumented in this encounter Additional Health Concerns Assessment Noted Time PHQ-9 Depression Total Score: 17 024 11:12 AM EST documented as of this encounter Care Teams Can Carrier Relationship Specialty Start Date End Date Phyllis Skinner MD [address] [place] [address] PCP - General Internal Medicine 07/29/23 [facility] 05/23/24 documented as of this encounter
== END 2024-07-26 15:36 | disposition home or self-care (01) ==
PROVIDERS: PCP Student in an Organized Health Care Education/Training Program; Visit Provider Physician Assistant
DX: M17.0 Bilateral primary osteoarthritis of knee (principal)
CPT/HCPCS: 20610; 99203

== ENCOUNTER → 2024-07-26 14:46 | Outpatient (BNV) | payer MEDICAID, SELFPAY | PROVIDERS: Visit Provider Nuclear Medicine | DX: M17.0 Bilateral primary osteoarthritis of knee (principal) | CPT/HCPCS: 73562 ==

== ENCOUNTER 2024-08-17 10:41 | Outpatient (REF) | payer MEDICAID, SELFPAY ==
--- OUTSIDE RECORDS SUMMARY | 2024-08-17 11:50 | XMS_ITS | Encounter Summary ---
Author Organization [employer] Address [address] [facility] [address] 7t [place] [address] Care Team Providers Care Sash Finisher Name Role Phone Phyllis Skinner MD Primary Care Pro vider Reason for Visit * Reason Comments Care Coordination CHW outreach for SDO H housing search-referral completed Encounter Details Date Type Department Care Team (Latest Contact Info) Description 08/01/2024 Patient Outreach [facility] [address] [place] [address] Phyllis Skinner MD [address] [place] [address] Care Coordination (CHW outreach for SDOH housing search-referral completed ) Social History Tobacco Use Types Packs/Day Years [...] encounter Progress Notes * Brian Orta - 08/01/2024 1:24 PM EST CHW Brian Orta, placed outbound call to patient for assistance with SDOH as a referral was received by the provider. Patient's name and were confirmed. Patient screened positive for the following SDOH housing insecurities. CHW referred patient to housing listing was mail out to address on file. Patient agree to follow up with housing search with list and applications. Patient educated onextended clinic hours on Mondays through Wednesdays, and Walk-In Urgent Care Located in [facility]. Patient provided with after-hours line for [facility], , which offer night time triage service and option to transfer to internet application developer provider if needed. documented in this encounter Plan of Treatment Upcoming Encounters Date Type Department Care Team (Late st Contact Info) Description 08/25/2024 1:30 PM EST Office Visit [facility] [address] [place] [address] Anil Gross CNP [address] [place], [place] [phone] documented as of this encounter Visit Diagnoses Not on filedocumented in this encounter Additional Health Concerns Assessment Noted Time PHQ-9 Depression Total Score: 17 024 11:12 AM EST documented as of this encounter Care Teams Sash Finisher Relationship Specialty Start Date End Date Phyllis Skinner MD [address] [place] [address] PCP - General Internal Medicine 07/29/23 08/16/24 [facility] 05/23/24 documented as of this encounter
--- OUTSIDE RECORDS SUMMARY | 2024-08-17 11:51 | XMS_ITS | Clinical Summary ---
Author Organization [facility] it Address [address] [place] [address] Care Team Providers Care General Dentist/Owner Name Role Phone Tim Wright MD Primary Care Provider [phone] Social History Tobacco Use Types Packs/Day Years Used Date Smoking Tobacco: Never Assessed Sex and Gender Information Value Date Recorded Sex Assigned at Not on file Legal Sex Male 12:25 PM EST Gender Identity Not on file Sexual Orientation [...] patient's age to complete this topic Meningococcal B Vacine Aged Out No lo nger eligible based on patient's age to complete [...] age to complete this topic Care Teams General Dentist/Owner Relationship Specialty Start Date End Date Tim Wright MD [address] [place] [address] [id number] [place] [address] PCP - General Internal Medicine 11/18/17
--- OUTSIDE RECORDS SUMMARY | 2024-08-17 11:51 | XMS_ITS | Encounter Summary ---
Author Organization [employer] Address [address] [place] [address] 7t [place] [address] Care Team Providers Care Exhaust Tender Name Role Phone Phyllis Skinner MD Primary Care Pro vider Reason for Referral * Imaging (Routine) - Authorized Specialty Diagnoses / Procedures Referred By Parth garcia Referred To Contact Cardiology Diagnoses Chronic cough Edema, lower extremity Procedures Transthoracic Echo (TTE) Complete Anil Gross CNP [address] [place] [address] Phone: tel: fax: [address] Phone: tel: fax: Referral ID Status Reason Start Date Expiration Date Visits Requested Visits Authorized [id number] Authorized Perform Procedure 07/26/2024 07/26/2025 1 1 * Consultation (Routine) - Authorized Specialty Diagnoses / Procedures Referred By Parth garcia Referred To Contact Sleep Medicine Diagnoses WARREN (obstructive sleep apnea) Anil Gross CNP [address] [place] [address] Phone: tel: fax: Sleep Medicine Service [address], [address] [place] [address] Phone: tel: fax: Referral ID Status Reason Start Date Expiration Date Visits Requested Visits Authorized [id number] Authorized Specialty Services Required 07/26/2024 07/26/2025 6 6 * PFT (Routine) - Authorized Specialty Diagnoses / Procedures Referred By Parth garcia Referred To Contact Diagnoses Shortness of breath Procedures Pulmonary Function Test Anil Gross CNP [address] [place] [address] Phone: tel: fax: [address] Phone: tel: fax: Referral ID Status Reason Start Date Expiration Date V isits Requested Visits Authorized [id number] Authorized 07/26/2024 07/26/2025 1 1 Encounter Details Date Type Department Care Team (Late st Contact Info) Description 07/26/2024 11:15 AM EST Office Visit [facility] [address] [place] [address] Anil Gross CNP [address] [place] [phone] Shortness of breath (Primary Dx); WARREN (obstructive sleep apnea); Chronic cough; Edema, lower extremity Social History Tobacco Use Types Packs/Day Years Used Date Smoking Tobacco: Never Passive Smoke Exposure: Never Smokeless Tobacco: Never Alcohol Use Standard Drinks/Week Comments Yes 0 (1 standard drink = 0.6 oz pure alcohol) hx of heavy alcohol use now drinks twice a week-vodka /2 Bottle Depression Answer Date Recorded Patient Health [...] 11:00 AM EST documented in this encounter Progress Notes * Anil Gross CNP - 07/26/2024 11:15 AM EST Yazan Enoch Stallings is a 39 y.o. male who presents for a acute visit. Pt reporting right lung pain for several years, pt requesting pulmonolgy referral. Today he says he is having mild SOB and somechest tightness. Reporting right lung pain since 2017, describes the pain as sharp and notes it moreso with inspiration, he says that it makes it hard to breathe and it is worse at night. Because of the pain he starts coughing which provides relief, it is a productive cough, sputum is clear. Also endorsing night sweats, He confirms a hx of WARREN but says he hasn't completed a sleep study so he doesn't have a CPAP at home. Pt also confirms having a shingles roofer helper at [facility], last visit 06/12/2024 Office Procedures EKG Details: EKG with underlying sinus rhythm at 83/Min; leftward axis; cannot exclude old anterior infarct; [place]. [id number], Complete At this time a CTA was performed as well as an Echo, results are unavailable Non smoker Imaging Chest XR 09/20/23 IMPRESSION: There is no gross pneumothorax. Lung volumes are low. No gross focal consolidation to suggest pneumonia. No pleural effusion. Heart size within normal limits. Patient Active Problem List Diagnosis Type 2 diabetes mellitus with hyperglycemia, without long-term current use of insulin ([facility]) Primary hypertension Morbid obesity ([facility]) Auditory hallucination Schizoaffective disorder, depressive type ([facility]) Alcoholism ([facility]) WARREN (obstructive sleep apnea) Lower extremity edema Back pain Health care maintenance JULIÁN (generalized anxiety disorder) Vitamin D deficiency Lower abdominal pain Leukocytosis HLD (hyperlipidemia) LAFB (left anterior fascicular block) Housing insecurity Shortness of breath Chronic cough Edema, lower extremity No Known Allergies Review of Systems Constitutional: Negative for appetite change, chills, diaphoresis, fatigue and fever. HENT: Negative for congestion, postnasal drip, sore throat and trouble swallowing. Respiratory: Positive for cough, chest tightness and shortness of breath. Negative for choking, wheezing and stridor. Cardiovascular: Positive for leg swelling. Negative for chest pain and palpitations. Skin: Negative for color change and pallor. Neurological: Negative. Psychiatric/Behavioral: Negative. Vitals: 07/26/24 1100 07/26/24 1124 BP: (!) 148/90 127/83 BP Location: Right arm Patient Position: Sitting BP Cuff Size: Adult Pulse: 82 Resp: 16 Temp: 97.4 ??F (36.3 ??C) TempSrc: Oral SpO2: 98% Weight: 374 lb 6.4 oz (170 kg) Height: 5' 6 (1.676 m) Physical Exam Vitals reviewed. Constitutional: General: He is not in acute distress. Appearance: Normal appearance. He is not ill-appearing, toxic-appearing or diaphoretic. HENT: Head: Normocephalic and atraumatic. Cardiovascular: Rate and Rhythm: Normal rate and regular rhythm. Pulses: Normal pulses. Heart sounds: Normal heart sounds. No murmur heard. No friction rub. No gallop. Pulmonary: Effort: Pulmonary effort is normal. No respiratory distress. Breath sounds: Normal breath sounds. No stridor. No wheezing, rhonchi or rales. Chest: Chest wall: No tenderness. Musculoskeletal: Right lower leg: Edema present. Left lower leg: Edema present. Comments: 2+ pitting edema in both feet Neurological: General: No focal deficit present. Mental Status: He is alert and oriented to person, place, and time. Mental status is at baseline. Psychiatric: Mood and Affect: Mood normal. Behavior: Behavior normal. Thought Content: Thought content normal. Judgment: Judgment normal. Problem List Items Addressed This Visit WARREN (obstructive sleep apnea) Current Assessment & Plan Will send referral for sleep study today for CPAP initiation Relevant Orders Referral to Sleep Medicine Shortness of breath - Primary Current Assessment & Plan Pulmonary exam was wnl, no adventitious lung sounds noted. Will order BNP and echo today to r/o CHF Will order PFTs today to observe lung function Will order CXR today to r/o infectious etiology, malignancy, and Tb Will send albuterol inhaler to pharmacy to use prn for SOB Relevant Medications albuterol 108 (90 Base) MCG/ACT inhaler Spacer/Aero-Holding Chambers device Other Relevant Orders Pulmonary Function Test XR Chest 2 Views Chronic cough Current Assessment & Plan Pulmonary exam was wnl, no adventitious lung sounds noted. Will order BNP and echo today to r/o CHF Will order PFTs today to observe lung function Will order CXR today to r/o infectious etiology, malignancy, and Tb Will send albuterol inhaler to pharmacy to use prn for SOB Relevant Orders Transthoracic Echo (TTE) Complete B Type Natriuretic Peptide (BNP) Edema, lower extremity Current Assessment & Plan Pt has a hx of lower edema, per PCP presumed to be related to venous/lymphatic etiology associated to morbid obesity , no concerning findings Pulmonary exam was wnl, no adventitious lung sounds noted. Will order BNP and echo today to r/o CHF Relevant Orders Transthoracic Echo (TTE) Complete B Type Natriuretic Peptide (BNP) F/u in 1 month [facility] STEEL BUFFER Attestation STEEL BUFFER Resident Attestation: Patient was seen and evaluated by Anil Gross STEEL BUFFER, in collaboration with Yaz Davis STEEL BUFFER who has reviewed my assessment and plan. I, Yaz Davis STEEL BUFFER , have reviewed the resident's note and agree with the assessment & plan of care as documented above. Visit Conducted in: Welsh Translation by: Provided by [employer] Phone Service ID # [id number] [id number] documented in this encounter Miscellaneous Notes * [...] 08/25/2024 1:30 PM EST Office Visit [facility] [address] [place] [address] Anil Gross CNP [address] [place] [phone] Scheduled Orders Name Type Priority Associated Diagnoses [...] B Type Natriuretic Peptide 148(H) <100 pg/mL [facility] Comment:For those patients w ho are being treated with Natrecor(nesiritide, recombinant BNP), BNP testing should beperformed at least two hours post treatment in order toensure that only endogenous levels of BNP are detected. Blood Venous blood specimen / Unknown 07/26/2024 11:45 AM EST 07/26/2024 1:25 PM EST [facility] LAB BLOOD ORDERABLES Albertina l Result [facility] [address] [place] [address] [phone] documented in this encounter Visit Diagnoses Diagnosis Shortness of breath- Primary WARREN (obstructive sleep apnea) Obstructive sleep apnea (adult) (pediatric) Chronic cough Cough Edema, lower extremity documented in this encounter Additional Health Concerns Assessment Noted Time PHQ-9 Depression Total Score: 17 024 11:12 AM EST documented as of this encounter Care Teams Exhaust Tender Relationship Specialty Start Date End Date Phyllis Skinner MD [address] [place] [address] PCP - General Internal Medicine 07/29/23 08/16/24 [facility] 05/23/24 documented as of this encounter
--- OUTSIDE RECORDS SUMMARY | 2024-08-17 11:51 | XMS_ITS | Encounter Summary ---
Author Organization [employer] Address [address] [facility] 7t [place] [address] Care Team Providers Care Civil Engineering Director Name Role Phone Phyllis Skinner MD Primary Care Pro vider Anil Gross CNP Primary Care Provider [phone] Reason for Visit * Reason Onset Date Comments PT-1 06/30/2024 Encounter Details Date Type Department Care Team (Late st Contact Info) Description 06/30/2024 Telephone [facility] [address] [place], [place] [phone] Phyllis Skinner MD [address] [place], [place] [phone] PT-1 Social History Tobacco Use Types Packs/Day [...] Y/N: Yes Provider name or facility name: [facility] Facility Address: [address] [facility] Escort needed: Y/N: Yes Do you have a wheelchair: Y/N: No (uses cane) If yes- Manual or electric: N/A Visits: 8 times monthly - Patient calling requesting PT1 Home Address verified: Y/N: Yes Provider name or facility name: [facility] Facility Address: [address] [facility] Escort needed: Y/N: Yes Do you have a wheelchair: Y/N: No If yes- Manual or electric: N/A Visits: 5 monthly documented in this encounter Plan of Treatment Upcoming Encounters Date Type Department Care Team (Late st Contact Info) Description 08/25/2024 1:30 PM EST Office Visit [facility] [address] [place] [address] Anil Gross CNP [address] [place], [place] [phone] documented as of this encounter Visit Diagnoses Not on filedocumented in this encounter Additional Health Concerns Assessment Noted Time PHQ-9 Depression Total Score: 17 024 11:12 AM EST documented as of this encounter Care Teams Civil Engineering Director Relationship Specialty Start Date End Date Phyllis Skinner MD [address] [place], [place] [phone] PCP - General Internal Medicine 07/29/23 08/16/24 Anil Gross CNP [address] [place], [place] [phone] PCP - General Family Medicine 08/17/24 [facility] 05/23/24 documented as of this encounter
--- OUTSIDE RECORDS SUMMARY | 2024-08-17 11:51 | XMS_ITS | Encounter Summary ---
Author Organization [employer] Address [address] [place] [address] 7t [place] [address] Care Team Providers Care Flower Grower Name Role Phone Phyllis Skinner MD Primary Care Pro vider Anil Gross CNP Primary Care Provider [phone] Reason for Visit * Reason Onset Date Comments Change PCP 07/10/2024 Encounter Details Date Type Department Care Team (Late st Contact Info) Description 07/10/2024 Telephone [facility] [address] [place], [place] [phone] Phyllis Skinner MD [address] [place], [place] [phone] Change PCP Social History Tobacco Use Types [...] has not received. Please contact pt at [phone]. (Vincentian Speaker) documented in this encounter Plan of Treatment Upcoming Encounters Date Type Department Care Team (Late st Contact Info) Description 08/25/2024 1:30 PM EST Office Visit [facility] [address] [place] [address] Anil Gross CNP [address] [place], [place] [phone] documented as of this encounter Visit Diagnoses Not on filedocumented in this encounter Additional Health Concerns Assessment Noted Time PHQ-9 Depression Total Score: 17 024 11:12 AM EST documented as of this encounter Care Teams Flower Grower Relationship Specialty Start Date End Date Phyllis Skinner MD [address] [place] [address] PCP - General Internal Medicine 07/29/23 08/16/24 Anil Gross CNP [address] [place] [address] PCP - General Family Medicine 08/17/24 [facility] 05/23/24 documented as of this encounter
--- OUTSIDE RECORDS SUMMARY | 2024-08-17 11:51 | XMS_ITS | Encounter Summary ---
Author Organization [employer] Address [address] [facility] 7t [place] [address] Care Team Providers Care Hogshead Dumper Name Role Phone Phyllis Skinner MD Primary Care Pro vider Anil Gross CNP Primary Care Provider [phone] Reason for Visit * Reason Onset Date Comments PT-1 07/07/2024 Encounter Details Date Type Department Care Team (Late st Contact Info) Description 07/07/2024 Telephone [facility] [address] [place], [place] [phone] Phyllis Skinner MD [address] [place], [place] [phone] PT-1 Social History Tobacco Use Types Packs/Day [...] Y/N: Yes Provider name or facility name: [facility] Facility Address: [address] [place] [address] Escort needed: Y/N: No Do you have a wheelchair: Y/N: No If yes- Manual or electric: N/A (uses walker) Visits: 5 Monthly documented in this encounter Plan of Treatment Upcoming Encounters Date Type Department Care Team (Late st Contact Info) Description 08/25/2024 1:30 PM EST Office Visit [facility] [address] [place] [address] Anil Gross CNP [address] [place], [place] [phone] documented as of this encounter Visit Diagnoses Not on filedocumented in this encounter Additional Health Concerns Assessment Noted Time PHQ-9 Depression Total Score: 17 024 11:12 AM EST documented as of this encounter Care Teams Hogshead Dumper Relationship Specialty Start Date End Date Phyllis Skinner MD [address] [place] [address] PCP - General Internal Medicine 07/29/23 08/16/24 Anil Gross CNP [address] [place] [address] PCP - General Family Medicine 08/17/24 [facility] 05/23/24 documented as of this encounter
--- OUTSIDE RECORDS SUMMARY | 2024-08-17 11:51 | XMS_ITS | Encounter Summary ---
Author Organization [employer] Address [address] [facility] 7t [place] [address] Care Team Providers Care Pet Counselor Name Role Phone Phyllis Skinner MD Primary Care Pro vider Encounter Details Date Type Department Care Team (Late st Contact Info) Description 08/11/2024 Orders Only [facility] [address] [place] [address] Payal De La Garza, ANP [address] [place] [address] Low serum potassium (Primary Dx) Social History Tobacco Use Types Packs/Day Years [...] Description 08/25/2024 1:30 PM EST Office Visit [facility] [address] [place] [address] Anil rGoss CNP [address] [place] [address] Scheduled Orders Name Type Priority Associated Diagnoses Orde r Schedule Basic Metabolic Panel Lab Routine Low serum potassium Expected: 08/11/2024 (Approximate), Expires: 08/11/2025 documented as of this encounter Visit Diagnoses Diagnosis Low serum potassium- Primary documented in this encounter Additional Health Concerns Assessment Noted Time PHQ-9 Depression Total Score: 17 024 11:12 AM EST documented as of this encounter Care Teams Pet Counselor Relationship Specialty Start Date End Date Phyllis Skinner MD [address] [place] [address] PCP - General Internal Medicine 07/29/23 08/16/24 [facility] 05/23/24 documented as of this encounter
--- OUTSIDE RECORDS SUMMARY | 2024-08-17 11:51 | XMS_ITS | Clinical Summary ---
Author Organization [facility] Address [address] [place] [address] Care Team Providers Care Illuminating Engineer Name Role Phone Larisa Phillips [facility] Primary Care Provider [phone] Source Comments PLEASE NOTE, if this patient [...] stripsIndications: Type 2 diabetes mellitus without complication ([facility]) 1 Strip 2 (two) times daily [...] hr tabletIndications: Post-traumatic stress disorder,Bipolar II disorder ([facility]) Take 2 tabs by mouth daily at [...] Diagnosed Date Homelessness 08/18/2018 Bipolar 1 disorder ([facility]) 08/26/2017 Incisional hernia, without obstruction or gangre ne 03/16/2017 Overview (12/20/2017): Will plan for laparoscopic or DaVinci repair. Will need anticoagulation d/t morbid obesity. Post-traumatic stress disorder 12/22/2016 Alcohol use disorder, modera te, in early remission ([facility]) 12/22/2016 Anxiety and depression 10/13/2016 Insomnia secondary to depression with anxiety GERD (gastroesophageal reflux disease) 7 Vitamin D deficiency 09/06/2015 Morbid obesity with BMI of 50.0-59.9, adult ([facility]) 09/05/2015 Overview (03/02/2016): [facility] weight loss specialist appt 11/12/15. Type 2 diabetes mellitus without complication ([facility]) 09/05/2015 Osteoarthritis of knees, bilateral 09/05/2015 Overview (12/25/2015): Mild bilateral tri-compartmental OA both knee's via x-rays 09/16/15 at [facility] Bilateral low back pain with sciatica 09/05/2015 Overview (03/02/2016): Early multilevel degenerative bone spurring anterior lumbar spine via x-rays 09/16/15 at [facility]. Patient seen for PT 02/17/16 at [facility] but d/c due to poor activity tolerance and limited motivation. They recommend referral [facility] comprehensive weight management program which I already did and he DNKA 11/12/15. 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
--- OUTSIDE RECORDS SUMMARY | 2024-08-17 11:51 | XMS_ITS | Encounter Summary ---
Author Organization [employer] Address [address] [facility] 7t [place] [address] Care Team Providers Care Director Of Entertainment Name Role Phone Phyllis Skinner MD Primary [...] EST Office Visit [facility] [address] [place] [address] Anil Gross CNP [address] [place] [address] documented as of this encounter Visit Diagnoses Not on filedocumented in this encounter Additional Health Concerns Assessment Noted Time PHQ-9 Depression Total Score: 17 024 11:12 AM EST documented as of this encounter Care Teams Director Of Entertainment Relationship Specialty Start Date End Date Phyllis Skinner MD [address] [place] [address] PCP - General Internal Medicine 07/29/23 08/16/24 [facility] 05/23/24 documented as of this encounter
--- OUTSIDE RECORDS SUMMARY | 2024-08-17 11:51 | XMS_ITS | Encounter Summary ---
Author Organization [employer] Address [address] [place] [address] 7t [place] [address] Care Team Providers Care Grain Miller Helper Name Role Phone Phyllis Skinner MD Primary Care Pro vider Anil Gross CNP Primary Care Provider [phone] Reason for Visit * Reason Onset Date Comments Referral 07/04/2024 Encounter Details Date Type Department Care Team (Late st Contact Info) Description 07/04/2024 Telephone [facility] [address] [place], [place] [phone] Phyllis Skinner MD [address] [place], [place] [phone] Referral Social History Tobacco Use Types Packs/Day [...] study on 07/30/23 to be changed from [facility] in [place] to the [facility] in [place] due to pt not having transportation. If any questions contact pt at [phone] documented in this encounter Plan of Treatment Upcoming Encounters Date Type Department Care Team (Late st Contact Info) Description 08/25/2024 1:30 PM EST Office Visit [facility] [address] [place] [address] Anil Gross CNP [address] [place], [place] [phone] documented as of this encounter Visit Diagnoses Not on filedocumented in this encounter Additional Health Concerns Assessment Noted Time PHQ-9 Depression Total Score: 17 024 11:12 AM EST documented as of this encounter Care Teams Grain Miller Helper Relationship Specialty Start Date End Date Phyllis Skinner MD [address] [place], [place] [phone] PCP - General Internal Medicine 07/29/23 08/16/24 Anil Gross CNP [address] [place] [address] PCP - General Family Medicine 08/17/24 [facility] 05/23/24 documented as of this encounter
--- OUTSIDE RECORDS SUMMARY | 2024-08-17 11:51 | XMS_ITS | Encounter Summary ---
Author Organization [employer] Address [address] [facility] 7t [place] [address] Care Team Providers Care Parts Consultant Name Role Phone Anil Gross CNP Primary Care Provider [phone] Reason for Visit * Reason Onset Date Comments Recall? PCP? 08/17/2024 Encounter Details Date Type Department Care Team (Late st Contact Info) Description 08/17/2024 Telephone [facility] [address] [place] [address] Anli Gross CNP [address] [place] [address] Recall? PCP? Social History Tobacco Use Types Packs/Day Years [...] encounter Miscellaneous Notes * Telephone Encounter - Suzie Thao MA - 08/17/2024 10:26 AM EST Telephone encounter for recall with [facility]. Patient has a recall with [facility] but is being seen by [place]. General Lithographic Worker asked Patient if he wanted appointment with . Patient stated he had changed Providers. General Lithographic Worker informed she does see he is seeing a new provider but for some reason his PCP was never changed. General Lithographic Worker does see the requested in change of PCP and spoke with Casing Grader. General Lithographic Worker changed PCP in chart and called Patient back to inform him. General Lithographic Worker apologizes to Patient for the confusion. General Lithographic Worker also reminded Patient of next appointment with [facility] on 08/25/24 at 1:30 PM. documented in this encounter Plan of Treatment Upcoming Encounters Date Type Department Care Team (Late st Contact Info) Description 08/25/2024 1:30 PM EST Office Visit [facility] [address] [place] [address] Anil Gross CNP [address] [place] [address] documented as of this encounter Visit Diagnoses Not on filedocumented in this encounter Additional Health Concerns Assessment Noted Time PHQ-9 Depression Total Score: 17 06/26/ 024 11:12 AM EST documented as of this encounter Care Teams Parts Consultant Relationship Specialty Start Date End Date Anil Gross CNP [address] [place] [address] PCP - General Family Medicine 08/17/24 [facility] 05/23/24 documented as of this encounter
--- OUTSIDE RECORDS SUMMARY | 2024-08-17 11:51 | XMS_ITS | Encounter Summary ---
Author Organization [employer] Address [address] [facility] 7t [place] [address] Care Team Providers Care Social Media Developer Name Role Phone Anil Gross CNP Primary Care Provider [phone] Reason for Visit * Reason Onset Date Comments Immunizations 08/17/2024 Encounter Details Date Type Department Care Team (Late st Contact Info) Description 08/17/2024 Telephone [facility] [address] [place] [address] Anil Gross CNP [address] [place] [address] Immunizations Social History Tobacco Use Types Packs/Day Years [...] with others, in a hotel, in a usp, living outside on the street, on a [...] encounter Miscellaneous Notes * Telephone Encounter - Valeria Elvin - 08/17/2024 10:49 AM EST Patient walked in requesting a TB Test order, patient states he needs the order before appointment day. Please contact patient to number on edgardo once order is ready, thanks!. documented in this encounter Plan of Treatment Upcoming Encounters Date Type Department Care Team ([facility] st Contact Info) Description 08/25/2024 1:30 PM EST Office Visit [facility] [address] [place] [address] Anil Gross CNP [address] [place] [address] documented as of this encounter Visit Diagnoses Not on filedocumented in this encounter Additional Health Concerns Assessment Noted Time PHQ-9 Depression Total Score: 17 024 11:12 AM EST documented as of this encounter Care Teams Social Media Developer Relationship Specialty Start Date End Date Anil Gross CNP [address] [place] [address] PCP - General Family Medicine 08/17/24 [facility] 05/23/24 documented as of this encounter
--- OUTSIDE RECORDS SUMMARY | 2024-08-17 11:51 | XMS_ITS | Encounter Summary ---
Author Organization [employer] Address [address] [facility] 7t [place] [address] Care Team Providers Care Hand Polisher Name Role Phone Anil Gross PJ Primary Care Provider [phone] Reason for Visit * Reason Onset Date Comments Chart Prep 08/17/2024 Encounter Details Date Type Department Care Team (Late st Contact Info) Description 08/17/2024 Telephone [facility] [address] [place] [address] Phyllis Skinner MD [address] [place] [address] Chart Prep Social History Tobacco Use Types [...] Telephone Encounter - Terry Curiel MA - 08/17/2024 9:26 AM EST Chart Prep Labs: done Images: done Vaccines due: yes PCV Flu Covid Hep B Referrals: complete Screenings: Foot Exam Overdue care gaps: A1C, Glucose, SDOH documented in this encounter Plan of Treatment Upcoming Encounters Date Type Department Care Team (Late st Contact Info) Description 08/25/2024 1:30 PM EST Office Visit [facility] [address] [place] [address] Anil Gross CNP [address] [place] [address] documented as of this encounter Visit Diagnoses Not on filedocumented in this encounter Additional Health Concerns Assessment Noted Time PHQ-9 Depression Total Score: 17 024 11:12 AM EST documented as of this encounter Care Teams Hand Polisher Relationship Specialty Start Date End Date Anil Gross CNP [address] [place] [address] PCP - General Family Medicine 08/17/24 [facility] 05/23/24 documented as of this encounter
--- OUTSIDE RECORDS SUMMARY | 2024-08-17 11:51 | XMS_ITS | Encounter Summary ---
Author Organization [employer] Address [address] [facility] 7t [place] [address] Care Team Providers Care Physician Gynecologist Name Role Phone Phyllis Skinner MD Primary Care Pro vider Anil Gross CNP Primary Care Provider [phone] Encounter Details Date Type Department Care Team (Late st Contact Info) Description 05/19/2024 Telephone [facility] [address] [place], [place] [phone] Phyllis Skinner MD [address] [place], [place] [phone] Social History Tobacco Use Types Packs/Day Years [...] Description 08/25/2024 1:30 PM EST Office Visit [facility] [address] [place] [address] Anil Gross CNP [address] [place] [address] documented as of this encounter Visit Diagnoses Not on filedocumented in this encounter Additional Health Concerns Assessment Noted Time PHQ-9 Depression Total Score: 17 024 9:10 AM EDT documented as of this encounter Care Teams Physician Gynecologist Relationship Specialty Start Date End Date Phyllis Skinner MD [address] [place] [address] PCP - General Internal Medicine 07/29/23 08/16/24 Anil Gross CNP [address] [place] [address] PCP - General Family Medicine 08/17/24 [facility] 05/23/24 documented as of this encounter
--- OUTSIDE RECORDS SUMMARY | 2024-08-17 11:51 | XMS_ITS | Encounter Summary ---
Author Organization [employer] Address [address] [place] [address] 7t [place] [address] Care Team Providers Care Diabetes Nurse Name Role Phone Phyllis Skinner MD Primary Care Pro vider Reason for Visit * Reason Onset Date Comments Call Back Request 08/01/2024 Encounter Details Date Type Department Care Team ([facility] st Contact Info) Description 08/01/2024 Telephone [facility] [address] [place] [address] Phyllis Skinner MD [address] [place] [address] Call Back Request Social History Tobacco Use Types Packs/Day Years [...] Telephone Encounter - Lindsay Blevins RN - 08/15/2024 9:35 AM EST Telephone call to pt using [facility] assessment specialist Airam #[id number] to advise that lab work was generally normal however potassium was a little low so PCP recommends repeating labwork by end of the week. Advised pt of potassium rich foods such as oranges, bananas, tomatoes. Pt verbalized understanding, no further questions. * Telephone Encounter - Irasema Carmona RN - 08/12/2024 8:59 AM EST Telephone call placed to pt regarding below lab results and POC. No answer, left v/m. Will retask for second attempt. * Telephone Encounter - Irasema Carmona RN - 08/12/2024 8:56 AM EST ----- Message from Payal De La Garza sent at 08/11/2024 4:55 PM EST ----- Please let patient know that his labs were generally okay his potassium was a tiny bit low so wouldrecommend he please repeat this thanks. * Telephone Encounter - Chad Sultana - 08/01/2024 11:44 AM EST Tc from pt requesting call back stating he is current;y homeless and would like a call back to verify any possible resources or assisted that can be provided to help. Please contact pt at [phone]. (Chilean Speaker) documented in this encounter Plan of Treatment Upcoming Encounters Date Type Department Care Team (Late st Contact Info) Description 08/25/2024 1:30 PM EST Office Visit [facility] [address] [place] [address] Anil Gross CNP [address] [place] [address] documented as of this encounter Visit Diagnoses Not on filedocumented in this encounter Additional Health Concerns Assessment Noted Time PHQ-9 Depression Total Score: 17 06/26/ 024 11:12 AM EST documented as of this encounter Care Teams Diabetes Nurse Relationship Specialty Start Date End Date Phyllis Skinner MD [address] [place] [address] PCP - General Internal Medicine 07/29/23 08/16/24 [facility] 05/23/24 documented as of this encounter
--- OUTSIDE RECORDS SUMMARY | 2024-08-17 11:51 | XMS_ITS | Clinical Summary ---
Author Organization [employer] Address [address] [facility] 7[address] [place] [address] Care Team Providers Care Chancery Clerk Name Role Phone Anil Gross PJ Primary Care Provider [phone] Allergies No known active allergies Medications * This document contains information received from the source organization and may not represent a complete record from that organization. Blood Pressure kit Check blood pressure once a day 1 kit 3 Active ammonium lactate (Lac-Hydrin) 12 % cream Apply topically if needed for dry skin. 140 g 2 4 01/07/20 25 Active sodium chloride ([place]) 0.65 % nasal sprayIndications: Epistaxis Administer 1 spray into each nostril if needed for congestion. 15 mL 3 4 01/26/20 25 Active Multiple Vitamin (Multivitamin) tablet Take 1 tablet by mouth in the morning. 90 tablet 1 4 Active ergocalciferol (Vitamin D2) 1.25 MG (30979 UT) capsule Take 1 capsule (1.25 mg) by mouth 1 (one) time per week. 12 capsule 1 4 Active losartan (Cozaar) 25 MG tabletIndications :Primary hypertension Take 1 tablet (25 mg) by [...] Active paliperidone (Invega) 3 MG 24 hr tabletIndications :Schizoaffective disorder, depressive type (CMS/HCC) Take 1 tablet (3 mg) by mouth in the morning. Do not crush, chew, or split. 30 tablet 1 5 09/05/19 25 Active escitalopram (Lexapro) 5 MG tabletIndications :JULIÁN (generalized anxiety disorder) Take 1 tablet (5 mg) by mouth in the morning. 30 tablet 1 5 09/05/19 25 Active hydrOXYzine pamoate (Vistaril) 25 MG capsuleIndication s:JULIÁN (generalized anxiety disorder) Take 1 capsule (25 mg) by mouth if needed at bedtime for anxiety. 30 capsule 1 5 09/05/19 25 Active albuterol 108 (90 Base) MCG/ACT inhalerIndication s:Shortness of breath Inhale 2 puffs every 4 (four) hours if needed for wheezing. 18 g 5 07/26/19 26 Active Spacer/Aero-Holdi ng Chambers deviceIndications :Shortness of breath 1 Units Once per day. 1 Units 5 Active Active Problems Problem Noted Date Diagnosed [...] Provided information for CB- crisis numbers and [facility] help line. I will referred pt for IP therapy and psychopharmacology, Yazan also agreed to do referral for CM to assist with transportation and housing insecurities. clinician will provide follow-up BE per patient's request to assess sxs and provide additional support. PLAN: (check all that apply) New/Additional Services needed Off-site services for Behavioral Health Integration Plan Internal Follow up with [facility] External OP therapy referral and OP psychiatry Referral Patient Self Plan Patient to utilize skills provided in intervention , Patient to reach out to [facility] team as needed, Comply with medication , Patient to engage in OP therapy , and Patient to reach out to [facility] as needed Vitamin D deficiency 11/26/2023 Lower abdominal pain 11/26/2023 Leukocytosis 11/26/2023 HLD (hyperlipidemia) 11/26/2023 JULIÁN (generalized anxiety disorder) 08/02/2023 Assessment & Plan (05/30/2024 11:57 AM EST): During IBH Consult Yazan presenting with excessive [...] Unable to engage with last referral for [facility] in [place]. Pt identifies listening to music as a relaxing coping strategy. During today's session Yazan was provided with a safe space to share his concerns and emotions. Reviewed and assessed for risk, current stressors and protective factors using open-ended questions. Pt will be referred to psych with Chase Guzmán and [facility] for OP therapy. clinician will be available during next medical appointment to provide additional support. Assessment & Plan (02/01/2024 3:16 PM EDT): During IB Consult Yazan presenting with excessive [...] Provided information for [facility]- crisis numbers and [facility] help line. I will referred pt for IP therapy and psychopharmacology, Yazan also agreed to do referral for CM to assist with transportation and housing insecurities. clinician will provide follow-up BE per patient's request to assess sxs and provide additional support. PLAN: (check all that apply) New/Additional Services needed Off-site services for Behavioral Health Integration Plan Internal Follow up with [facility] External OP therapy referral and OP psychiatry Referral Patient Self Plan Patient to utilize skills provided in intervention , Patient to reach out to [facility] team as needed, Comply with medication , Patient to engage in OP therapy , and Patient to reach out to [facility] as needed Lower extremity edema 07/30/2023 Back pain 07/30/2023 Health care maintenance 07/30/2023 Type 2 diabetes mellitus wit h hyperglycemia, without long-term current use of insulin 05/18/2023 Primary hypertension 05/18/2023 Morbid obesity 05/18/2023 Auditory hallucination 05/18/2023 Schizoaffective disorder, depressive type 2022 Assessment & Plan (02/01/2024 3:16 PM EDT): During IB Consult Yazan presenting with excessive [...] Provided information for [facility]- crisis numbers and [facility] help line. I will referred pt for IP therapy and psychopharmacology, Yazan also agreed to do referral for CM to assist with transportation and housing insecurities. clinician will provide follow-up BE per patient's request to assess sxs and provide additional support. PLAN: (check all that apply) New/Additional Services needed Off-site services for Behavioral Health Integration Plan Internal Follow up with [facility] External OP therapy referral and OP psychiatry Referral Patient Self Plan Patient to utilize skills provided in intervention , Patient to reach out to [facility] team as needed, Comply with [...] exacerbated by alcohol. Yazan agrees to expect [facility] phone call with appointment. I will put in the referral for AUD appointment. At this time, Yazan declined follow up BE's as he would like to schedule with group home therapist. I provided my information, and he [...] organization. Date Type Department Care Team Description 08/17/[address] [address] Anil Gross CNP Immunizations 08/17/[address] [address] Anil Gross CNP Recall? PCP? 08/17/[address] [address] Phyllis Skinner MD Chart Prep 08/11/2024 Orders Only [address] [address] Payal De La Garza ANP Low serum potassium (Primary Dx) 08/01/2024 Patient Outreach [facility] [address] [place] [phone] Phyllis Skinner MD Care Coordination (CHW outreach for SDOH housing search-referral completed ) 08/01/[address] [address] Phyllis Skinner MD Call Back Request 07/26/2024 11:15 AM EST Office Visit [address] [address] Anil Gross CNP Shortness of breath (Primary Dx); WARREN (obstructive sleep apnea); Chronic cough; Edema, lower extremity 07/26/2024 Travel 07/11/[address] [address] Phyllis Skinner MD Chart Prep 07/10/[address] [address] Nehemiah Santana MA T/C change PCP request 07/10/[address] [address] Phyllis Skinner MD Change PCP 07/07/2024 Patient Outreach [address] [address] Phyllis Skinner MD Care Coordination (CHW outreach for SDOH PT-1 and food needs-referral completed /) 07/07/[address] [address] Phyllis Skinner MD No Show 07/07/[address] [address] Phyllis Skinner MD PT-1 07/05/[address] [address] Bertha Cook MA Chart Prep 07/04/[address] [address] Phyllis Skinner MD Referral 06/30/2024 Patient Outreach [address] [address] Phyllis Skinner MD Care Coordination (CHW outreach for SDOH PT-1 and food needs-referral completed /) 06/30/2024 Telephone [facility] MEDICINE [address] [place] [address] Phyllis Skinner MD Medication Question; Referral 06/30/2024 Telephone [facility] MEDICINE [address] [place] [phone] Phyllis Skinner MD PT-1 06/16/2024 Telephone [facility] MEDICINE [address] [place] [phone] Irasema Carmona, log pond worker 06/12/2024 Telephone [facility] MEDICINE [address] [place] [phone] Brina Maria, log pond worker ([employer] [place] denied) 06/07/2024 Telephone [facility] MEDICINE [address] [place] [phone] Radha Kang RNlog pond worker (Ozempic PA ) 05/26/2024 Refill [facility] MEDICINE [address] [place] [phone] Phyllis Skinner MD 05/19/2024 Telephone [facility] MEDICINE [address] [place] [phone] Phyllis Skinner MD Referral 05/19/2024 Telephone [facility] MEDICINE [address] [place] [phone] Phyllis Skinner MD from Last 3 Months Immunizations Name Administration [...] Description 08/25/2024 1:30 PM EST Office Visit [facility] MEDICINE [address] [place], [place] [phone] Anil Gross, CRIME SCENE PHOTOGRAPHER [address] [place], [place] [phone] Health Maintenance Due Date Last Done Comments [...] SDOH Screening 07/20/2024 07/20/2023 Diabetes: Hemoglobin A1C 08/10/202405/10/2 024, 05/09/2024, 09/15/2023, Additional history exists Depression [...] of insulin (CMS/HCC) COMPREHENSIVE METABOLIC PANEL Routine 07/26/2024 11:45 AM [...] without long-term current use of insulin (CMS/HCC) HEPATITIS C AB W/REFL TO HCV RNA, QN, PCR Routine 09/15/2023 10:24 AM EDT Annual physical exam HIV 1/2 ANTIGEN/ANTIBODY, FOURTH GENERATION W/RFL Routine 09/15/2023 10:24 AM EDT Annual physical exam from Last 3 Months or Most Recently Relevant to Health Maintenance Results * Vitamin D, 25-Hydroxy, Total, Immunoassay (07/26/2024 11:45 AM EST) Vitamin D 25-OH Total 33.2 >30 ng/mL [facility] Comment:Health Based Referen ce Values*< 20 ng/mL Eppifbxci36-27 ng/mL Insufficient> 30 ng/mL Sufficient*[facility] WEST. N [...] MD LAB BLOOD ORDERAB LES Final Result [facility] [address] [place] [phone] * CBC (07/26/2024 11:45 AM EST) Pathologist [facility] White Blood Count 10.6 4.8 - 10.8 X10*3/uL [facility] Red Blood Count 4.84 4.60 - 5.80 X10*6/uL [facility] Hemoglobin 14.7 14.0 - 18.0 g/dl [facility] Hematocrit 43.0 42.0 - 52.0 % [facility] Mean Corpuscular Volume 88.8 80.0 - 98.0 fL [facility] Mean Corpuscular Hemoglobin 30.4 27.0 - 33.0 pg [facility] Mean Corpuscular HGB Conc 34.2 31.0 - 36.0 g/dl [facility] Red Cell Distribution Width 14.4 11.0 - 16.0 % [facility] Platelet Count 166 160 - 400 X10*3/uL [facility] Mean Platelet Volume 9.8 9.4 - 12.4 fL [facility] NRBC Pct Auto 0.0 0.0 - 0.2 /100WBC [facility] NRBC Abs Auto 0.000 0.0 - 0.012 X10*3/uL [facility] Blood Venous blood specimen / Unknown 07/26/2024 11:45 AM EST 07/26/2024 1:23 PM EST us Phyllis Roach MD LAB BLOOD ORDERAB LES Final Result [facility] [address] [place] [phone] * (ABNORMAL) B Type Natriuretic Peptide (BNP) (07/26/2024 11:45 AM EST) Pathologist [facility] B Type Natriuretic Peptide 148(H) <100 pg/mL [facility] Comment:For those patients w ho are being treated with Natrecor(nesiritide, recombinant BNP), BNP testing should beperformed at least two hours post treatment in order toensure that only endogenous levels of BNP are detected. Blood Venous blood specimen / Unknown 07/26/2024 11:45 AM EST 07/26/2024 1:25 PM EST Anil Gross CRIME SCENE PHOTOGRAPHER LAB BLOOD ORDERABLES Albertina l Result [facility] [address] [place] [phone] * (ABNORMAL) Comprehensive Metabolic Panel (07/26/2024 11:45 AM EST) Sodium 137 135 - 145 mmol/L [facility] Potassium 3.2(L) 3.3 - 5.1 mmol/L [facility] Chloride 103 96 - 108 mmol/L [facility] Carbon Dioxide 25 22 - 29 mmol/L [facility] Anion Gap 12 12 - 20 [facility] Urea Nitrogen (BUN) 8(L) 9 - 16 mg/dL [facility] Creatinine, Serum 0.63 0.5 - 1.4 mg/dL [facility] Estimated Glomerular Filt Rate >60 [facility] Comment:Chronic Kidney Disea se: Estimated GFR < 60 mL/min/1.15f8Cykmip Kidney Disease: Estimated GFR < 15 mL/min/1.73m2 Glucose 147(H) 60 - 115 mg/dL [facility] Calcium 8.6 8.4 - 10.2 mg/dL [facility] Bilirubin, Total 0.9 0.0 - 1.0 mg/dL [facility] Aspartate Amino Transferase 40(H) 5 - 37 U/L [facility] Alanine Aminotransferase 23 0 - 40 U/L [facility] Total Protein 7.8 6.5 - 8.0 g/dL [facility] Albumin Level 3.9 3.5 - 5.0 g/dL [facility] Alkaline Phosphatase 69 39 - 117 U/L [facility] Blood Venous blood specimen / Unknown 07/26/2024 11:45 AM EST 07/26/2024 1:23 PM EST us Phyllis Roach MD LAB BLOOD ORDERAB LES Final Result Performing Organization Address [facility]/ZIP Co de Phone Number [facility] [address] [place] [phone] * (ABNORMAL) POCT HGB A1C (05/10/2024 2:29 PM EST) Hemoglobin A1C 6.4(A) 4.0 - 6.0 % QC Media Lot # [id number] Lot# Expiration Date Blood 05/10/2024 2:29 PM EST Phyllis Roach MD POINT OF CARE EKATERINA T ENTER/EDIT ORDERABLES Final Result * Albumin, Random Urine W/Creatinine (05/09/2024 10:55 AM EST) Creatinine, Urine 262.21 mg/dL [facility] Microalbumin Urine 14.0 mg/L [facility] Microalbum Creatinine Ratio Ur 5.3 <30 ug/mg cr [facility] Comment:Albumin/Creatinine R atio Reference Ranges: Normal: < 30 ug/mg creatinine Microalbuminuria: 30 - 300 ug/mg creatinineClinical Albuminuria: > 300 ug/mg creatinine Urine (Urine, Random) 05/09/2024 10:55 AM EST 05/09/2024 1:10 PM EST us Phyllis Roach MD LAB URINE ORDERAB LES Final Result Performing Organization Address City/[facility]/ZIP Co de Phone Number [facility] [address] [place] [phone] * (ABNORMAL) Lipid Panel, Standard (05/09/2024 10:55 AM EST) Triglycerides 106 <150 mg/dL [facility] Comment:Desirable Triglyceri de: less than 150 mg/dLBorderline High Triglyceride 150-199 mg/dLHigh Triglyceride: 200-499 mg/dLVery High Triglyceride: greater than or equal to 5OO mg/dL Cholesterol 138 <200 mg/dL [facility] Comment:Desirable Cholestero l: less than 200 mg/dLBorderline High Cholesterol: 200-239 mg/dLHigh Cholesterol: greater than 239 mg/dL LDL Cholesterol Calculated 84 <100 mg/dL [facility] Comment:Desirable LDL: less than 100 mg/dLNear Optimal/Above Optimal LDL: 110- 129 mg/dLBorderline High LDL: 130-159 mg/dLHigh LDL: 160-189 mg/dLVery High LDL: greater than or equal to 190 mg/dL HDL Cholesterol 33(L) >40 mg/dL [facility] Comment:Desirable HDL: great er than 40 mg/dL Note: This HDL assay may give artificially low results in patients with liver disease. Blood Venous blood specimen / Unknown 05/09/2024 10:55 AM EST 05/09/2024 1:45 PM EST us Phyllis Roach MD LAB BLOOD ORDERAB LES Final Result Performing Organization Address City/[facility] Co de Phone Number [facility] [address] [place] [phone] * Hepatitis C Antibody with Reflex to HCV, RNA, Quantitative, Real-Time PCR (09/15/2023 10:24 AM EDT) Hepatitis C Antibody Nonreactive Nonreactive [facility] Comment:Antibodies to HCV no t detected; does not exclude early acuteHCV infection. Blood Venous blood specimen / Unknown 09/15/2023 10:24 AM EDT 09/15/2023 11:20 AM EDT us Phyllis Roach MD LAB BLOOD ORDERAB LES Final Result Performing Organization Address City/[facility]/ZIP Co de Phone Number [facility] [address] [place] [phone] * HIV-1/2 Antigen and Antibodies, Fourth Generation, with Reflexes (09/15/2023 10:24 AM EDT) HIV AB/AG Nonreactive Nonreactive [facility] Comment:HIV-1 p24 Ag and/or HIV-1/HIV-2 Ab not detected.A test result that is nonreactive does not exclude thepossibility of exposure to or infection with HIV-1 and/orHIV-2. Nonreactive results in this assay for individualswith prior exposure to HIV-1 and/or HIV-2 may be due toantigen and antibody levels that are below the limit ofdetection of this assay.The Zayante HIV Ag/Ab Combo assay result andsupplemental assay results should be interpreted inconjunction with the patient's clinical presentation,history and other laboratory results. If the results areinconsistent with clinical evidence, additional testing issuggested to confirm the result. Blood Venous blood specimen / Unknown 09/15/2023 10:24 AM EDT 09/15/2023 11:20 AM EDT us Phyllis Roach MD LAB BLOOD ORDERAB LES Final Result [facility] [address] [place] [phone] [phone] from Last 3 Months or Most Recently Relevant to Health Maintenance Insurance [facility] C3 HSN FULL Care Teams Chancery Clerk Relationship Specialty Start Date End Date Anil Gross CNP [address] [place] [phone] PCP - General Family Medicine 08/17/24 [facility] 05/23/24
--- OUTSIDE RECORDS SUMMARY | 2024-08-17 11:51 | XMS_ITS | Encounter Summary ---
Author Organization [employer] Address [address] [place] [address] [address] [place] [address] Care Team Providers Care Rough And Truing Machine Operator Name Role Phone Phyllis Skinner MD Primary Care Pro vider Anil Gross CNP Primary Care Provider [phone] Reason for Visit * Reason Onset Date Comments Referral 05/19/2024 Encounter Details Date Type Department Care Team (Late st Contact Info) Description 05/19/2024 Telephone [facility] MEDICINE [address] [place], [place] [phone] Phyllis Skinner MD [address] [place], [place] [phone] Referral Social History Tobacco Use Types Packs/Day [...] about referral for Psychiatrist. Contact pt at [phone] documented in this encounter Plan of Treatment Upcoming Encounters Date Type Department Care Team (Late st Contact Info) Description 08/25/2024 1:30 PM EST Office Visit [facility] MEDICINE [address] [place], [place] [phone] Anil Gross CNP [address] [place] [address] documented as of this encounter Visit Diagnoses Not on filedocumented in this encounter Additional Health Concerns Assessment Noted Time PHQ-9 Depression Total Score: 17 024 9:10 AM EDT documented as of this encounter Care Teams Rough And Truing Machine Operator Relationship Specialty Start Date End Date Phyllis Skinner MD [address] [place] [address] PCP - General Internal Medicine 07/29/23 08/16/24 Anil Gross CNP [address] [place], [place] [phone] PCP - General Family Medicine 08/17/24 [facility] 05/23/24 documented as of this encounter
--- OUTSIDE RECORDS SUMMARY | 2024-08-17 11:52 | XMS_ITS | Encounter Summary ---
Author Organization [email or web address] Address [address] [facility] [address]t [place] [address] Care Team Providers Care Political Reporter Name Role Phone Phyllis Skinner MD Primary Care Pro vider Anil Gross CNP Primary Care Provider [phone] Reason for Visit * Reason Onset Date Comments PT1 12/06/2023 Encounter Details Date Type Department Care Team (Late st Contact Info) Description 12/06/2023 Telephone [facility] MEDICINE [address] [place], [place] [phone] Phyllis Skinner MD [address] [place], [place] [phone] PT1 Social History Tobacco Use Types Packs/Day [...] Y/N: Yes Provider name or facility name: [facility] Facility Address: [address] [place] [address] Escort needed: Y/N: No Do you have a wheelchair: Y/N: No If yes- Manual or electric: n/a Visits: 6 a year documented in this encounter Plan of Treatment Upcoming Encounters Date Type Department Care Team ([facility] st Contact Info) Description 08/25/2024 1:30 PM EST Office Visit [facility] MEDICINE [address] [place], [place] [phone] Anil Gross, PJ [address] [place], [place] [phone] documented as of this encounter Visit Diagnoses Not on filedocumented in this encounter Additional Health Concerns Assessment Noted Time PHQ-9 Depression Total Score: 24 024 11:50 AM EST documented as of this encounter Care Teams Political Reporter Relationship Specialty Start Date End Date Phyllis Skinner MD [address] [place] [address] PCP - General Internal Medicine 07/29/23 08/16/24 Anil Gross CNP [address] [place] [address] PCP - General Family Medicine 08/17/24 [facility] 05/23/24 documented as of this encounter
[2024-08-17 12:18] LABS: Anion Gap 16 (12-20); Blood Urea Nitrogen 13 mg/dL (9-16); Calcium 8.9 mg/dL (8.4-10.2); Carbon Dioxide 23 mmol/L (22-29); Chloride 106 mmol/L (96-108); Estimated Glomerular Filt Rate > 60; Glucose Random 130 mg/dL (60-115); Potassium 3.6 mmol/L (3.3-5.1); Sodium 141 mmol/L (135-145)
[2024-08-17 12:19] LABS: Anion Gap 16 (12-20); Blood Urea Nitrogen 14 mg/dL (9-16); Carbon Dioxide 23 mmol/L (22-29); Chloride 106 mmol/L (96-108); Estimated Glomerular Filt Rate > 60; Glucose Random 128 mg/dL (60-115); Potassium 3.6 mmol/L (3.3-5.1); Sodium 141 mmol/L (135-145)
== END 2024-08-17 10:42 | disposition home or self-care (01) ==
LOC: HO.HHCL 10:41
PROVIDERS: Internal Medicine; Visit Provider Nurse Practitioner Primary Care
DX: E87.6 Hypokalemia (principal); R07.2 Precordial pain
CPT/HCPCS: 36415; 80048

== ENCOUNTER 2024-08-21 10:51 | Outpatient (REF) | payer MEDICAID, SELFPAY ==
--- OUTSIDE RECORDS SUMMARY | 2024-08-21 12:22 | XMS_ITS | Encounter Summary ---
Author Organization [employer] Address [address] [facility] [address]t [place] [address] Care Team Providers Care Director Of Radiology Name Role Phone Phyllis Skinner MD Primary Care Pro vider Reason for Visit * Reason Comments Care Coordination CHW outreach for SDO H housing search-referral completed Encounter Details Date Type Department Care Team (Latest Contact Info) Description 08/01/2024 Patient Outreach [facility] MEDICINE [address] [place] [address] Phyllis Skinner MD [address] [place] [address] Care Coordination (CHW outreach for SDOH housing [...] Wednesdays, and Walk-In Urgent Care Located in [facility]. Patient provided with after-hours line for [facility], , which offer night time triage service and option to transfer to document control specialist provider if needed. documented in this encounter Plan of Treatment Upcoming Encounters Date Type Department Care Team (Late st Contact Info) Description 08/25/2024 1:30 PM EST Office Visit [facility] MEDICINE [address] [place] [address] Anil Gross CNP [address] [place], [place] [phone] documented as of this encounter Visit Diagnoses Not on filedocumented in this encounter Additional Health Concerns Assessment Noted Time PHQ-9 Depression Total Score: 17 024 11:12 AM EST documented as of this encounter Care Teams Director Of Radiology Relationship Specialty Start Date End Date Phyllis Skinner MD [address] [place] [address] PCP - General Internal Medicine 07/29/23 08/16/24 [facility] 05/23/24 documented as of this encounter
--- OUTSIDE RECORDS SUMMARY | 2024-08-21 12:22 | XMS_ITS | Encounter Summary ---
Author Organization [employer] Address [address] [facility] 7t [place] [address] Care Team Providers Care Miniature Set Designer Name Role Phone Anil Gross CNP Primary Care Provider +1 [phone] Reason for Visit * Reason Onset Date Comments Recall? PCP? 08/17/2024 Encounter Details Date Type Department Care Team (Late st Contact Info) Description 08/17/2024 Telephone [facility] [address] [place] [address] Anil Gross CNP [address] [place] [address] Recall? PCP? Social History Tobacco Use Types [...] others, in a hotel, in a senior care, living outside on the street, on a [...] with Eamon but is being seen by [place]. Wood Milling Machine Hand asked Patient if he wanted appointment with . Patient stated he had changed Providers. Wood Milling Machine Hand informed she does see he is seeing a new provider but for some reason his PCP was never changed. Wood Milling Machine Hand does see the requested in change of PCP and spoke with Apiculturist. Wood Milling Machine Hand changed PCP in chart and called Patient back to inform him. Wood Milling Machine Hand apologizes to Patient for the confusion. Wood Milling Machine Hand also reminded Patient of next appointment with Renato on 08/25/24 at 1:30 PM. documented in this encounter Plan of Treatment Upcoming Encounters Date Type Department Care Team (Late st Contact Info) Description 08/25/2024 1:30 PM EST Office Visit [facility] [address] [place] [address] Anil Gross CNP [address] [place] [address] documented as of this encounter Visit Diagnoses Not on filedocumented in this encounter Additional Health Concerns Assessment Noted Time PHQ-9 Depression Total Score: 17 06/26/ 024 11:12 AM EST documented as of this encounter Care Teams Miniature Set Designer Relationship Specialty Start Date End Date Anil Gross CNP [address] [place] [address] PCP - General Family Medicine 08/17/24 [facility] 05/23/24 documented as of this encounter
--- OUTSIDE RECORDS SUMMARY | 2024-08-21 12:22 | XMS_ITS | Encounter Summary ---
Author Organization [employer] Address [address] [place] [address] 7t [place] [address] Care Team Providers Care Follow Up Clerk Name Role Phone Phyllis Skinner MD Primary Care Pro vider Reason for Visit * Reason Onset Date Comments Call Back Request 08/01/2024 Encounter Details Date Type Department Care Team ([facility] st Contact Info) Description 08/01/2024 Telephone [facility] [address] [place] [address] Phyllis Skinner MD [address] [place] [address] Call Back Request Social History Tobacco Use [...] with others, in a hotel, in a jail, living outside on the street, on a [...] AM EST Telephone call to pt using [facility] computer analyst supervisor Airam #[id number] to advise that lab work was generally [...] back to verify any possible resources or jail that can be provided to help. Please contact pt at [phone]. (Senegalese Speaker) documented in this encounter Plan of Treatment Upcoming Encounters Date Type Department Care Team (Late st Contact Info) Description 08/25/2024 1:30 PM EST Office Visit [facility] [address] [place] [address] Anil Gross CNP [address] [place] [address] documented as of this encounter Visit Diagnoses Not on filedocumented in this encounter Additional Health Concerns Assessment Noted Time PHQ-9 Depression Total Score: 17 06/26/ 024 11:12 AM EST documented as of this encounter Care Teams Follow Up Clerk Relationship Specialty Start Date End Date Phyllis Skinner MD [address] [place] [address] PCP - General Internal Medicine 07/29/23 08/16/24 [facility] 05/23/24 documented as of this encounter
--- OUTSIDE RECORDS SUMMARY | 2024-08-21 12:22 | XMS_ITS | Encounter Summary ---
Author Organization [employer] Address [address] [facility] 7t [place] [address] Care Team Providers Care Radiology Asst Name Role Phone Phyllis Skinner MD Primary Care Pro vider Encounter Details Date Type Department Care Team (Late st Contact Info) Description 08/11/2024 Orders Only [facility] [address] [place] [address] Payal De La Garza, ANP [address] [place] [address] Low serum potassium (Primary Dx) Social History [...] with others, in a hotel, in a fci, living outside on the street, on a [...] Description 08/25/2024 1:30 PM EST Office Visit [facility] [address] [place] [phone] Anil Gross CNP [address] [place] [address] documented as of this encounter Procedures Procedure Name Priority Date/Time Associated Diagnosis Comments BASIC METABOLIC PANEL Routine 08/17/2024 10:43 AM EST Low serum potassium documented in this encounter Results * (ABNORMAL) Basic Metabolic Panel (08/17/2024 10:43 AM EST) Sodium 141 135 - 145 mmol/L [facility] Potassium 3.6 3.3 - 5.1 mmol/L [facility] Chloride 106 96 - 108 mmol/L [facility] Carbon Dioxide 23 22 - 29 mmol/L [facility] Anion Gap 16 12 - 20 [facility] Urea Nitrogen (BUN) 13 9 - 16 mg/dL [facility] Creatinine, Serum 0.77 0.5 - 1.4 mg/dL [facility] Estimated Glomerular Filt Rate >60 [facility] Comment:Chronic Kidney Disea se: Estimated GFR < 60 mL/min/1.49s4Mzzgfj Kidney Disease: Estimated GFR < 15 mL/min/1.73m2 Glucose 130(H) 60 - 115 mg/dL [facility] Calcium 8.9 8.4 - 10.2 mg/dL [facility] Blood Venous blood specimen / Unknown 08/17/2024 10:43 AM EST 08/17/2024 11:43 AM EST Payal De La Garza [facility] LAB BLOOD ORDERABLES Final Resul t [facility] [address] [place] [address] [phone] documented in this encounter Visit Diagnoses Diagnosis Low serum potassium- Primary documented in this encounter Additional Health Concerns Assessment Noted Time PHQ-9 Depression Total Score: 17 024 11:12 AM EST documented as of this encounter Care Teams Radiology Asst Relationship Specialty Start Date End Date Phyllis Skinner MD [address] [place] [address] PCP - General Internal Medicine 07/29/23 08/16/24 [facility] 05/23/24 documented as of this encounter
--- OUTSIDE RECORDS SUMMARY | 2024-08-21 12:22 | XMS_ITS | Encounter Summary ---
Author Organization [employer] Address [address] [facility] 7t [place] [address] Care Team Providers Care Binder And Wrapper Packer Name Role Phone Anil Gross PJ Primary Care Provider [phone] Reason for Visit * Reason Onset Date Comments Chart Prep 08/17/2024 Encounter Details Date Type Department Care Team (Late st Contact Info) Description 08/17/2024 Telephone [facility] [address] [place] [address] Phyllis Skinner MD [address] [place] [address] Chart Prep Social History Tobacco Use Types [...] Description 08/25/2024 1:30 PM EST Office Visit [facility] [address] [place] [address] Anil Gross CNP [address] [place] [address] documented as of this encounter Visit Diagnoses Not on filedocumented in this encounter Additional Health Concerns Assessment Noted Time PHQ-9 Depression Total Score: 17 024 11:12 AM EST documented as of this encounter Care Teams Binder And Wrapper Packer Relationship Specialty Start Date End Date Anil Gross CNP [address] [place] [address] PCP - General Family Medicine 08/17/24 [facility] 05/23/24 documented as of this encounter
--- OUTSIDE RECORDS SUMMARY | 2024-08-21 12:23 | XMS_ITS | Encounter Summary ---
Author Organization [employer] Address [address] [facility] 7t [place] [address] Care Team Providers Care Oil Field Laborer Name Role Phone Phyllis Skinner MD Primary Care Pro vider Anil Gross CNP Primary Care Provider [phone] [phone] Encounter Details Date Type Department Care Team (Late st Contact Info) Description 05/19/2024 Telephone [facility] 230 [place], [place] [phone] Phyllis Skinner MD [address] [place], [place] [phone] Social History Tobacco Use Types Packs/Day Years [...] 1:30 PM EST Office Visit [facility] [address] [place] [address] Anil Gross CNP [address] [place] [address] documented as of this encounter Visit Diagnoses Not on filedocumented in this encounter Additional Health Concerns Assessment Noted Time PHQ-9 Depression Total Score: 17 024 9:10 AM EDT documented as of this encounter Care Teams Oil Field Laborer Relationship Specialty Start Date End Date Phyllis Skinner MD [address] [place] [address] PCP - General Internal Medicine 07/29/23 08/16/24 Anil Gross CNP [address] [place] [address] PCP - General Family Medicine 08/17/24 [facility] 05/23/24 documented as of this encounter
--- OUTSIDE RECORDS SUMMARY | 2024-08-21 12:23 | XMS_ITS | Encounter Summary ---
Author Organization [employer] Address [address] [facility] 7t [place] [address] Care Team Providers Care Living Skills Advisor Name Role Phone Phyllis Skinner MD Primary Care Pro vider Anil Gross CNP Primary Care Provider [phone] Reason for Visit * Reason Onset Date Comments PT-1 06/30/2024 Encounter Details Date Type Department Care Team (Late st Contact Info) Description 06/30/[address] [facility] MEDICINE [address] [place], [place] [phone] Phyllis Skinner MD [address] [place], [place] [phone] PT-1 Social History Tobacco Use Types Packs/Day [...] Y/N: Yes Provider name or facility name: [facility] Facility Address: [address] Escort needed: Y/N: Yes Do you have a wheelchair: Y/N: No (uses cane) If yes- Manual or electric: N/A Visits: 8 times monthly - Patient calling requesting PT1 Home Address verified: Y/N: Yes Provider name or facility name: [facility] Facility Address: [address] [facility] Escort needed: Y/N: Yes Do you have a wheelchair: Y/N: No If yes- Manual or electric: N/A Visits: 5 monthly documented in this encounter Plan of Treatment Upcoming Encounters Date Type Department Care Team (Late st Contact Info) Description 08/25/2024 1:30 PM EST Office Visit [facility]INE [address] [place] [address] Anil Gross CNP [address] [place], [place] [phone] documented as of this encounter Visit Diagnoses Not on filedocumented in this encounter Additional Health Concerns Assessment Noted Time PHQ-9 Depression Total Score: 17 024 11:12 AM EST documented as of this encounter Care Teams Living Skills Advisor Relationship Specialty Start Date End Date Phyllis Skinner MD [address] [place], [place] [phone] PCP - General Internal Medicine 07/29/23 08/16/24 Anil Gross CNP [address] [place], [place] [phone] PCP - General Family Medicine 08/17/24 [facility] 05/23/24 documented as of this encounter
--- OUTSIDE RECORDS SUMMARY | 2024-08-21 12:23 | XMS_ITS | Encounter Summary ---
Author Organization [employer] Address [address] [facility] 7t [place] [address] Care Team Providers Care Fire Sprinkler Service Technician Name Role Phone Anil Gross PJ Primary Care Provider [phone] [phone] Encounter Details Date Type Department Care Team (Late st Contact Info) Description 08/17/2024 Orders Only GENERIC EXTERNAL DATA DEPARTMENT Provider, Generic External Data Social History Tobacco Use Types Packs/Day Years [...] Description 08/25/2024 1:30 PM EST Office Visit [facility] [address] [place] [address] Anil Gross, SQL DEVELOPER [address] [place] [address] documented as of this encounter Procedures Procedure Name Priority Date/Time Associated Diagnosis Comments BASIC METABOLIC PANEL Routine 08/17/2024 10:43 AM EST documented in this encounter Results * (ABNORMAL) Basic Metabolic Panel (08/17/2024 10:43 AM EST) Sodium 141 135 - 145 mmol/L [facility] Potassium 3.6 3.3 - 5.1 mmol/L [facility] Chloride 106 96 - 108 mmol/L [facility] Carbon Dioxide 23 22 - 29 mmol/L [facility] Anion Gap 16 12 - 20 [facility] Urea Nitrogen (BUN) 14 9 - 16 mg/dL [facility] Creatinine, Serum 0.76 0.5 - 1.4 mg/dL [facility] Estimated Glomerular Filt Rate >60 [facility] Comment:Chronic Kidney Disea se: Estimated GFR < 60 mL/min/1.81u2Tipwka Kidney Disease: Estimated GFR < 15 mL/min/1.73m2 Glucose 128(H) 60 - 115 mg/dL [facility] Calcium 9.0 8.4 - 10.2 mg/dL [facility] 08/17/2024 10:4 3 AM EST 08/17/2024 11:43 AM EST us Generic External Data Provider LAB BLOOD ORDERAB LES Final Result [facility] [address] [place] [address] [phone] documented in this encounter Visit Diagnoses Not on filedocumented in this encounter Additional Health Concerns Assessment Noted Time PHQ-9 Depression Total Score: 17 024 11:12 AM EST documented as of this encounter Care Teams Fire Sprinkler Service Technician Relationship Specialty Start Date End Date Anil Gross CNP [address] [place] [address] PCP - General Family Medicine 08/17/24 [facility] 05/23/24 documented as of this encounter
--- OUTSIDE RECORDS SUMMARY | 2024-08-21 12:23 | XMS_ITS | Encounter Summary ---
Author Organization [employer] Address [address] [facility] 7t [place] [address] Care Team Providers Care Senior Accounting Clerk Name Role Phone Phyllis Skinner MD [...] with others, in a hotel, in a snf, living outside on the street, on a [...] Description 08/25/2024 1:30 PM EST Office Visit [facility] 230 [place] [address] Anil Gross CNP [address] [place] [address] documented as of this encounter Visit Diagnoses Not on filedocumented in this encounter Additional Health Concerns Assessment Noted Time PHQ-9 Depression Total Score: 17 024 11:12 AM EST documented as of this encounter Care Teams Senior Accounting Clerk Relationship Specialty Start Date End Date Phyllis Skinner MD [address] [place] [address] PCP - General Internal Medicine 07/29/23 08/16/24 [facility] 05/23/24 documented as of this encounter
--- OUTSIDE RECORDS SUMMARY | 2024-08-21 12:23 | XMS_ITS | Encounter Summary ---
Author Organization [employer] Address [address] [place] [address] 7t [place] [address] Care Team Providers Care Copier Operator Name Role Phone Phyllis Skinner MD Primary Care Pro vider Anil Gross CNP Primary Care Provider [phone] Reason for Visit * Reason Onset Date Comments Change PCP 07/10/2024 Encounter Details Date Type Department Care Team (Late st Contact Info) Description 07/10/2024 Telephone [facility] [address] [place], [place] [phone] Phyllis Skinner MD [address] [place], [place] [phone] Change PCP Social History Tobacco Use Types [...] has not received. Please contact pt at [phone]. (Kenyan Speaker) documented in this encounter Plan of Treatment Upcoming Encounters Date Type Department Care Team (Late st Contact Info) Description 08/25/2024 1:30 PM EST Office Visit [facility] [address] [place] [address] Anil Gross CNP [address] [place], [place] [phone] documented as of this encounter Visit Diagnoses Not on filedocumented in this encounter Additional Health Concerns Assessment Noted Time PHQ-9 Depression Total Score: 17 024 11:12 AM EST documented as of this encounter Care Teams Copier Operator Relationship Specialty Start Date End Date Phyllis Skinner MD [address] [place] [address] PCP - General Internal Medicine 07/29/23 08/16/24 Anil Gross CNP [address] [place] [address] PCP - General Family Medicine 08/17/24 [facility] 05/23/24 documented as of this encounter
--- OUTSIDE RECORDS SUMMARY | 2024-08-21 12:23 | XMS_ITS | Clinical Summary ---
Author Organization [facility] Address [address] [place] [address] Care Team Providers Care Signal Operator Name Role Phone Larisa Phillips [facility] Primary Care Provider [phone] Source Comments PLEASE NOTE, if this patient [...] stripsIndications: Type 2 diabetes mellitus without complication ([facility]) 1 Strip 2 (two) times [...] hr tabletIndications: Post-traumatic stress disorder,Bipolar II disorder ([facility]) Take 2 tabs by mouth daily [...] Diagnosed Date Homelessness 08/18/2018 Bipolar 1 disorder ([facility]) 08/26/2017 Incisional hernia, without obstruction or gangre ne 03/16/2017 Overview (12/20/2017): Will plan for laparoscopic or DaVinci repair. Will need anticoagulation d/t morbid obesity. Post-traumatic stress disorder 12/22/2016 Alcohol use disorder, modera te, in early remission ([facility]) 12/22/2016 Anxiety and depression 10/13/2016 Insomnia secondary to depression with anxiety GERD (gastroesophageal reflux disease) 7 Vitamin D deficiency 09/06/2015 Morbid obesity with BMI of 50.0-59.9, adult ([facility]) 09/05/2015 Overview (03/02/2016): [facility] weight loss specialist appt 11/12/15. Type 2 diabetes mellitus without complication ([facility]) 09/05/2015 Osteoarthritis of knees, bilateral 09/05/2015 Overview (12/25/2015): Mild bilateral tri-compartmental OA both knee's via x-rays 09/16/15 at [facility] Bilateral low back pain with sciatica 09/05/2015 Overview (03/02/2016): Early multilevel degenerative bone spurring anterior lumbar spine via x-rays 09/16/15 at [facility]. Patient seen for PT 02/17/16 at [place] but d/c due to poor activity tolerance and limited motivation. They recommend referral [facility] comprehensive weight management program which I already did and he DNKA 11/12/15. 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
--- OUTSIDE RECORDS SUMMARY | 2024-08-21 12:23 | XMS_ITS | Clinical Summary ---
Author Organization [facility] it Address [address] [place] [address] Care Team Providers Care Print Line Tailer Name Role Phone Tim Wright MD Primary Care Provider [phone] Social History Tobacco Use Types Packs/Day Years [...] age to complete this topic Care Teams Print Line Tailer Relationship Specialty Start Date End Date Tim Wright MD [address] [place] [address] [id number] [place] [address] PCP - General Internal Medicine 11/18/17
--- OUTSIDE RECORDS SUMMARY | 2024-08-21 12:23 | XMS_ITS | Encounter Summary ---
Author Organization [employer] Address 75 [facility] 7t [place] [address] Care Team Providers Care Orientor Name Role Phone Phyllis Skinner MD Primary Care Pro vider Anil Gross CNP Primary Care Provider [phone] Reason for Visit * Reason Onset Date Comments PT-1 07/07/2024 Encounter Details Date Type Department Care Team (Late st Contact Info) Description 07/07/2024 Telephone [facility] [address] [place], [place] [phone] Phyllis Skinner MD [address] [place], [place] [phone] PT-1 Social History Tobacco Use Types Packs/Day [...] Y/N: Yes Provider name or facility name: [facility] Facility Address: [address] [place] [address] Escort needed: Y/N: No Do you have a wheelchair: Y/N: No If yes- Manual or electric: N/A (uses walker) Visits: 5 Monthly documented in this encounter Plan of Treatment Upcoming Encounters Date Type Department Care Team (Late st Contact Info) Description 08/25/2024 1:30 PM EST Office Visit [facility] [address] [place] [address] Anil Gross CNP [address] [place], [place] [phone] documented as of this encounter Visit Diagnoses Not on filedocumented in this encounter Additional Health Concerns Assessment Noted Time PHQ-9 Depression Total Score: 17 024 11:12 AM EST documented as of this encounter Care Teams Orientor Relationship Specialty Start Date End Date Phyllis Skinner MD [address] [place] [address] PCP - General Internal Medicine 07/29/23 08/16/24 Anil Gross CNP [address] [place] [address] PCP - General Family Medicine 08/17/24 [facility] 05/23/24 documented as of this encounter
--- OUTSIDE RECORDS SUMMARY | 2024-08-21 12:23 | XMS_ITS | Encounter Summary ---
Author Organization [employer] Address [address] [facility] 7t [place] [address] Care Team Providers Care Regulatory Associate Name Role Phone Phyllis Skinner MD Primary Care Pro vider Anil Gross CNP Primary Care Provider [phone] Reason for Visit * Reason Onset Date Comments PT1 12/06/2023 Encounter Details Date Type Department Care Team (Late st Contact Info) Description 12/06/2023 Telephone [facility] [address] [place], [place] [phone] Phyllis Skinner MD 230 [place], [place] [phone] PT1 Social History Tobacco Use Types Packs/Day [...] Y/N: Yes Provider name or facility name: [facility] Facility Address: [address] [place] [address] Escort needed: Y/N: No Do you have a wheelchair: Y/N: No If yes- Manual or electric: n/a Visits: 6 a year documented in this encounter Plan of Treatment Upcoming Encounters Date Type Department Care Team ([facility] st Contact Info) Description 08/25/2024 1:30 PM EST Office Visit [facility] [address] [place], [place] [phone] Anil Gross, PJ [address] [place], [place] [phone] documented as of this encounter Visit Diagnoses Not on filedocumented in this encounter Additional Health Concerns Assessment Noted Time PHQ-9 Depression Total Score: 24 024 11:50 AM EST documented as of this encounter Care Teams Regulatory Associate Relationship Specialty Start Date End Date Phyllis Skinner MD [address] [place] [address] PCP - General Internal Medicine 07/29/23 08/16/24 Anil Gross CNP [address] [place] [address] PCP - General Family Medicine 08/17/24 [facility] 05/23/24 documented as of this encounter
--- OUTSIDE RECORDS SUMMARY | 2024-08-21 12:23 | XMS_ITS | Encounter Summary ---
Author Organization [employer] Address [address] [facility] 7t [place] [address] Care Team Providers Care Tableau Lead Name Role Phone Kyra Gross CNP Primary Care Provider [phone] Reason for Visit * Reason Onset Date Comments Immunizations 08/17/2024 Encounter Details Date Type Department Care Team (Late st Contact Info) Description 08/17/2024 Telephone [facility] MEDICINE [address] [place] [address] Kyra Gross CNP [address] [place] [address] Immunizations Social History Tobacco Use Types Packs/Day [...] as of this encounter Miscellaneous Notes * Addendum Note - Kyra Gross CNP - 08/18/2024 8:55 AM ESTAddended by: KYRA GROSS on: 08/18/2024 08:55 AM Modules accepted: Orders * Telephone Encounter - Kyra Gross CNP - 08/18/2024 8:55 AM EST Tb quantiferon order placed * Telephone Encounter - Valeria Oconnor - 08/17/2024 10:49 AM EST Patient walked in requesting a TB Test order, patient states he needs the order before appointment day. Please contact patient to number on edgardo once order is ready, thanks!. documented in this encounter Plan of Treatment Upcoming Encounters Date Type Department Care Team (Late st Contact Info) Description 08/25/2024 1:30 PM EST Office Visit [facility] MED[facility] [address] [place] [address] Kyra Gross CNP [address] [place] [address] Scheduled Orders Name Type Priority Associated Diagnoses Orde r Schedule QuantiFERON TB Gold Lab Routine Encounter for screening for respiratory tuberculosis Expected: 08/18/2024 (Approximate), Expires: 08/18/2025 documented as of this encounter Visit Diagnoses Diagnosis Encounter for screening for respiratory tuberculosis- Primary documented in this encounter Additional Health Concerns Assessment Noted Time PHQ-9 Depression Total Score: 17 024 11:12 AM EST documented as of this encounter Care Teams Tableau Lead Relationship Specialty Start Date End Date Kyra Gross CNP [address] [place] [address] PCP - General Family Medicine 08/17/24 [facility] 05/23/24 documented as of this encounter
--- OUTSIDE RECORDS SUMMARY | 2024-08-21 12:23 | XMS_ITS | Encounter Summary ---
Author Organization [employer] Address [address] [place] [address] 7[address] [place] [address] Care Team Providers Care Nursing Home Manager Name Role Phone Phyllis Skinner MD Primary Care Pro vider Anil Gross CNP Primary Care Provider [phone] Reason for Visit * Reason Onset Date Comments Referral 05/19/2024 Encounter Details Date Type Department Care Team (Late st Contact Info) Description 05/19/2024 Telephone [facility] MEDICINE [address] [place], [place] [phone] Phyllis Skinner MD [address] [place], [place] [phone] Referral Social History Tobacco Use Types Packs/Day [...] about referral for Psychiatrist. Contact pt at [phone] documented in this encounter Plan of Treatment Upcoming Encounters Date Type Department Care Team (Late st Contact Info) Description 08/25/2024 1:30 PM EST Office Visit [facility] MEDICINE [address] [place], [place] [phone] Anil Gross CNP [address] [place] [address] documented as of this encounter Visit Diagnoses Not on filedocumented in this encounter Additional Health Concerns Assessment Noted Time PHQ-9 Depression Total Score: 17 024 9:10 AM EDT documented as of this encounter Care Teams Nursing Home Manager Relationship Specialty Start Date End Date Phyllis Skinner MD [address] [place] [address] PCP - General Internal Medicine 07/29/23 08/16/24 Anil Gross CNP [address] [place], [place] [phone] PCP - General Family Medicine 08/17/24 [facility] 05/23/24 documented as of this encounter
--- OUTSIDE RECORDS SUMMARY | 2024-08-21 12:23 | XMS_ITS | Encounter Summary ---
Author Organization [employer] Address [address] [place] [address] 7t [place] [address] Care Team Providers Care Museum Registrar Name Role Phone Phyllis Skinner MD Primary Care Pro vider Anil Gross CNP Primary Care Provider [phone] Reason for Visit * Reason Onset Date Comments Referral 07/04/2024 Encounter Details Date Type Department Care Team (Late st Contact Info) Description 07/04/2024 Telephone [facility] MEDICINE [address] [place], [place] [phone] Phyllis Skinner MD [address] [place], [place] [phone] Referral Social History Tobacco Use Types Packs/Day [...] study on 07/30/23 [place] be [facility] [place] [facility] [place] due to pt not having transportation. If any questions contact pt at [phone] documented in this encounter Plan of Treatment Upcoming Encounters Date Type Department Care Team (Late st Contact Info) Description 08/25/2024 1:30 PM EST Office Visit [facility] MEDICINE [address] [place] [address] Anil Gross CNP [address] [place], [place] [phone] documented as of this encounter Visit Diagnoses Not on filedocumented in this encounter Additional Health Concerns Assessment Noted Time PHQ-9 Depression Total Score: 17 024 11:12 AM EST documented as of this encounter Care Teams Museum Registrar Relationship Specialty Start Date End Date Phyllis Skinner MD [address] [place], [place] [phone] PCP - General Internal Medicine 07/29/23 08/16/24 Anil Gross CNP [address] [place] [address] PCP - General Family Medicine 08/17/24 [facility] 05/23/24 documented as of this encounter
--- OUTSIDE RECORDS SUMMARY | 2024-08-21 12:23 | XMS_ITS | Encounter Summary ---
Author Organization [employer] Address [address] [place] [address] [address]t [place] [address] Care Team Providers Care Manager Endoscopy Name Role Phone Phyllis Skinner MD Primary Care Pro vider Reason for Referral * Imaging (Routine) - Closed Specialty Diagnoses / Procedures Referred By Parth garcia Referred To Contact Cardiology Diagnoses Chronic cough Edema, lower extremity Procedures Transthoracic Echo (TTE) Complete Anil Gross CNP [address] [place] [address] Phone: tel: fax: [address] Phone: tel: fax: Referral ID Status Reason Start Date Expiration Date V isits Requested Visits Authorized [id number] Closed Perform Procedure 07/26/2024 07/26/2025 1 1 * Consultation (Routine) - Authorized Specialty Diagnoses / Procedures Referred By Parth garcia Referred To Contact Sleep Medicine Diagnoses WARREN (obstructive sleep apnea) Anil Gross CNP [address] [place] [address] Phone: tel: fax: [facility] [address], [address] [place] [address] Phone: tel: fax: Referral ID Status Reason Start Date Expiration Date Visits Requested Visits Authorized [id number] Authorized Specialty Services Required 07/26/2024 07/26/2025 6 6 * PFT (Routine) - Closed Specialty Diagnoses / Procedures Referred By Parth garcia Referred To Contact Diagnoses Shortness of breath Procedures Pulmonary Function Test Anil Gross CNP [address] [place] [address] Phone: tel: fax: [address] Phone: tel: fax: Referral ID Status Reason Start Date Expiration Date Visits Re quested Visits Authorized [id number] Closed 07/26/2024 07/26/2025 1 1 Encounter Details Date Type Department Care Team (Late st Contact Info) Description 07/26/2024 11:15 AM EST Office Visit [facility] MEDICINE [address] [place] [address] Anil Gross CNP [address] [place] [phone] Shortness of breath (Primary Dx); WARREN (obstructive sleep apnea); Chronic cough; Edema, lower extremity Social History Tobacco Use Types Packs/Day Years Used Date Smoking Tobacco: Never Passive Smoke Exposure: Never Smokeless Tobacco: Never Alcohol Use Standard Drinks/Week Comments Yes 0 (1 standard drink = 0.6 oz pure alcohol) hx of heavy alcohol use now drinks twice a week-vodka / Bottle Depression Answer Date Recorded Patient Health [...] - 07/26/2024 11:15 AM EST Yazan Enoch Hinson Stallings is a 39 y.o. male who [...] at home. Pt also confirms having a pressure vessel inspector at [facility], last visit 06/12/2024 Office Procedures EKG Details: EKG with underlying sinus rhythm at 83/Min; leftward axis; cannot exclude old anterior infarct; [place]. [id number], Complete At this time a CTA was [...] hyperglycemia, without long-term current use of insulin ([facility]) Primary hypertension Morbid obesity ([facility]) Auditory hallucination Schizoaffective disorder, depressive type ([facility]) Alcoholism ([facility]) WARREN (obstructive sleep apnea) Lower extremity edema [...] Natriuretic Peptide (BNP) F/u in 1 month [facility] TILE INSTALLER Attestation TILE INSTALLER Resident Attestation: Patient was seen and evaluated by Anil Gross TILE INSTALLER, in collaboration with Yaz Davis TILE INSTALLER who has reviewed my assessment and plan. I, Yaz Davis TILE INSTALLER , have reviewed the resident's note and agree with the assessment & plan of care as documented above. Visit Conducted in: Thai Translation by: Provided by [employer] Phone Service ID # [place] [id number] documented in this encounter Miscellaneous Notes * [...] Office Visit [facility] MEDICINE [address] [place] [phone] Anil Gross CNP [address] [place] [phone] Scheduled Orders Name Type Priority Associated Diagnoses [...] B Type Natriuretic Peptide 148(H) <100 pg/mL [facility] Comment:For those patients w ho are being treated with Natrecor(nesiritide, recombinant BNP), BNP testing should beperformed at least two hours post treatment in order toensure that only endogenous levels of BNP are detected. Blood Venous blood specimen / Unknown 07/26/2024 11:45 AM EST 07/26/2024 1:25 PM EST [facility] BLO[facility] ORDERABLES Albertina l Result [facility] [address] [place] [address] [phone] documented in this encounter Visit Diagnoses Diagnosis Shortness of breath- Primary WARREN (obstructive sleep apnea) Obstructive sleep apnea (adult) (pediatric) Chronic cough Cough Edema, lower extremity documented in this encounter Additional Health Concerns Assessment Noted Time PHQ-9 Depression Total Score: 17 024 11:12 AM EST documented as of this encounter Care Teams Manager Endoscopy Relationship Specialty Start Date End Date Phyllis Skinner MD [address] [place] [phone] PCP - General Internal Medicine 07/29/23 08/16/24 [facility] 05/23/24 documented as of this encounter
--- OUTSIDE RECORDS SUMMARY | 2024-08-21 12:23 | XMS_ITS | Clinical Summary ---
Author Organization [employer] Address [address] [facility] 7[address] [place] [address] Care Team Providers Care Tangled Yarn Worker Name Role Phone Anil Gross PJ Primary Care Provider [phone] Allergies No known active allergies Medications * This document contains information received from the source organization and may not represent a complete record from that organization. Blood Pressure kit Check blood pressure once a day 1 kit 3 Active ammonium lactate (Lac-Hydrin) 12 % cream Apply topically if needed for dry skin. 140 g 2 4 01/07/20 25 Active sodium chloride ([place]) 0.65 % nasal sprayIndications: Epistaxis Administer 1 spray into each nostril if needed for congestion. 15 mL 3 4 01/26/20 25 Active Multiple Vitamin (Multivitamin) tablet Take 1 tablet by mouth in the morning. 90 tablet 1 4 Active ergocalciferol (Vitamin D2) 1.25 MG (69393 UT) capsule Take 1 capsule (1.25 mg) [...] Provided information for CB- crisis numbers and [facility] help line. I will referred pt for IP therapy and psychopharmacology, Yazan also agreed to do referral for CM to assist with transportation and housing insecurities. clinician will provide follow-up BE per patient's request to assess sxs and provide additional support. PLAN: (check all that apply) New/Additional Services needed Off-site services for Behavioral Health Integration Plan Internal Follow up with [facility] External OP therapy referral and OP psychiatry Referral Patient Self Plan Patient to utilize skills provided in intervention , Patient to reach out to [facility] team as needed, Comply with medication , Patient to engage in OP therapy , and Patient to reach out to [facility] as needed Vitamin D deficiency [...] Unable to engage with last referral for [facility] in [place]. Pt identifies listening to music as a relaxing coping strategy. During today's session Yazan was provided with a safe space to share his concerns and emotions. Reviewed and assessed for risk, current stressors and protective factors using open-ended questions. Pt will be referred to psych with Chase Guzmán and [facility] for OP therapy. clinician will [...] Provided information for [facility]- crisis numbers and [facility] help line. I will referred pt for IP therapy and psychopharmacology, Yazan also agreed to do referral for CM to assist with transportation and housing insecurities. clinician will provide follow-up BE per patient's request to assess sxs and provide additional support. PLAN: (check all that apply) New/Additional Services needed Off-site services for Behavioral Health Integration Plan Internal Follow up with [facility] External OP therapy referral and OP psychiatry Referral Patient Self Plan Patient to utilize skills provided in intervention , Patient to reach out to [facility] team as needed, Comply with [...] (02/01/2024 3:16 PM EDT): During IB Consult aYzan presenting with excessive worry/anxiety, difficulty controlling worry, [...] Provided information for [facility]- crisis numbers and [facility] help line. I will referred pt for IP therapy and psychopharmacology, Yazan also agreed to do referral for CM to assist with transportation and housing insecurities. clinician will provide follow-up BE per patient's request to assess sxs and provide additional support. PLAN: (check all that apply) New/Additional Services needed Off-site services for Behavioral Health Integration Plan Internal Follow up with [facility] External OP therapy referral and OP psychiatry Referral Patient Self Plan Patient to utilize skills provided in intervention , Patient to reach out to [facility] team as needed, Comply with [...] exacerbated by alcohol. Yazan agrees to expect HC phone call with appointment. I will put in the referral for AUD appointment. At this time, Yazan declined follow up BE's as he would like to schedule with [facility] therapist. I provided my information, and he [...] Date Type Department Care Team Description 08/17/2024 Orders Only GENERIC EXTERNAL DATA DEPARTMENT Provider, Generic External Data 08/17/[address] [facility] MED[facility] [address] [place] [phone] Anil Gross CNP Immunizations 08/17/[address] [facility] MEDICINE [address] [place] [phone] Anil Gross CNP Recall? PCP? 08/17/2024 Telephone [facility] [address] [place] [address] Phyllis Skinner MD Chart Prep 08/11/2024 Orders Only [facility] MEDICINE [address] [place] [phone] Payal De La Garza ANP Low serum potassium (Primary Dx) 08/01/2024 Patient Outreach [address] [address] Phyllis Skinner MD Care Coordination (CHW outreach for SDOH housing search-referral completed ) 08/01/[address] [address] Phyllis Skinner MD Call Back Request 07/26/2024 11:15 AM EST Office Visit [address] [address] Anil Gross, PJ Shortness of breath (Primary Dx); WARREN (obstructive sleep apnea); Chronic cough; Edema, lower extremity 07/26/2024 Travel 07/11/[address] [address] Phyllis Skinner MD Chart Prep 07/10/[address] [address] Nehemiah Santana MA T/C change PCP request 07/10/[address] [address] Phyllis Skinner MD Change PCP 07/07/2024 Patient Outreach [address] [address] Phyllis Skinner MD Care Coordination (CHW outreach for SDOH PT-1 and food needs-referral completed /) 07/07/[address] [address] Phyllis Skinner MD No Show 07/07/[address] [address] Phyllis Skinner MD PT-1 07/05/[address] [address] Bertha Cook MA Chart Prep 07/04/[address] [address] Phyllis Skinner MD Referral 06/30/2024 Patient Outreach [facility] [address] [place] [phone] Phyllis Skinner MD Care Coordination (CHW outreach for SDOH PT-1 and food needs-referral completed /) 06/30/[address] [address] Phyllis Skinner MD Medication Question; Referral 06/30/[address] [address] Phyllis Skinner MD PT-1 06/16/[address] [address] Irasema Carmona RNworkforce management analyst 06/12/[address] [address] Brina Maria RNworkforce management analyst (Ozempic PA denied) 06/07/[address] [address] Radha Kang RNworkforce management analyst (Ozempic PA ) 05/26/[address] [address] Phyllis Skinner MD from Last 3 Months [...] 1:30 PM EST Office Visit [facility]IC[facility] [address] [place] [address] Anil Gross, CUFF STITCHER [address] [place], [place] [phone] Health Maintenance Due Date Last Done Comments [...] SDOH Screening 07/20/2024 07/20/2023 Diabetes: Hemoglobin A1C 08/10/202405/10/ 024, 05/09/2024, 09/15/2023, Additional history exists Depression [...] METABOLIC PANEL Routine 08/17/2024 10:43 AM EST BASIC METABOLIC PANEL Routine 08/17/2024 10:43 AM EST Low serum potassium B TYPE NATRIURETIC PEPTIDE (BNP) Routine 07/26/2024 [...] Recently Relevant to Health Maintenance Results * (ABNORMAL) Basic Metabolic Panel (08/17/2024 10:43 AM EST) Only the most recent of2 resultswithin the time period is included. Sodium 141 135 - 145 mmol/L [facility] Potassium 3.6 3.3 - 5.1 mmol/L [facility] Chloride 106 96 - 108 mmol/L [facility] Carbon Dioxide 23 22 - 29 mmol/L [facility] Anion Gap 16 12 - 20 [facility] Urea Nitrogen (BUN) 14 9 - 16 mg/dL [facility] Creatinine, Serum 0.76 0.5 - 1.4 mg/dL [facility] Estimated Glomerular Filt Rate >60 [facility] Comment:Chronic Kidney Disea se: Estimated GFR < 60 mL/min/1.24m6Dsakdh Kidney Disease: Estimated GFR < 15 mL/min/1.73m2 Glucose 128(H) 60 - 115 mg/dL [facility] Calcium 9.0 8.4 - 10.2 mg/dL [facility] 08/17/2024 10:4 3 AM EST 08/17/2024 11:43 AM EST us Generic External Data Provider LAB BLOOD ORDERAB LES Final Result Performing Organization Address City/[facility]/ZIP Co de Phone Number [facility] [address] [place] [phone] * Vitamin D, 25-Hydroxy, Total, Immunoassay (07/26/2024 11:45 AM EST) Vitamin D 25-OH Total 33.2 >30 ng/mL [facility] Comment:Health Based Referen ce Values*< 20 ng/mL Ujsdxetyx48-96 ng/mL Insufficient> 30 ng/mL Sufficient*Gogo WEST. N [...] ORDERAB LES Final Result Performing Organization Address City/[facility]/ZIP Co de Phone Number [facility] [address] [place] [address] [phone] * CBC (07/26/2024 11:45 AM EST) White Blood Count 10.6 4.8 - 10.8 X10*3/uL [facility] Red Blood Count 4.84 4.60 - 5.80 X10*6/uL [facility] Hemoglobin 14.7 14.0 - 18.0 g/dl [facility] Hematocrit 43.0 42.0 - 52.0 % [facility] Mean Corpuscular Volume 88.8 80.0 - 98.0 fL [facility] Mean Corpuscular Hemoglobin 30.4 27.0 - 33.0 pg [facility] Mean Corpuscular HGB Conc 34.2 31.0 - 36.0 g/dl [facility] Red Cell Distribution Width 14.4 11.0 - 16.0 % [facility] Platelet Count 166 160 - 400 X10*3/uL [facility] Mean Platelet Volume 9.8 9.4 - 12.4 fL [facility] NRBC Pct Auto 0.0 0.0 - 0.2 /100WBC [facility] NRBC Abs Auto 0.000 0.0 - 0.012 X10*3/uL [facility] Blood Venous blood specimen / Unknown 07/26/2024 11:45 AM EST 07/26/2024 1:23 PM EST Phyllis Roach MD LAB BLOOD ORDERAB LES Final Result Performing Organization Address [facility] de Phone Number [facility] [address] [place] [phone] * (ABNORMAL) B Type Natriuretic Peptide (BNP) (07/26/2024 11:45 AM EST) [facility] B Type Natriuretic Peptide 148(H) <100 pg/mL [facility] Comment:For those patients w ho are being treated with Natrecor(nesiritide, recombinant BNP), BNP testing should beperformed at least two hours post treatment in order toensure that only endogenous levels of BNP are detected. Blood Venous blood specimen / Unknown 07/26/2024 11:45 AM EST 07/26/2024 1:25 PM EST Anil Gross CNP LAB BLOOD ORDERABLES Albertina l Result Performing Organization Address [facility] Co de Phone Number [facility] [address] [place] [phone] * (ABNORMAL) Comprehensive Metabolic Panel (07/26/2024 11:45 AM EST) Sodium 137 135 - 145 mmol/L [facility] Potassium 3.2(L) 3.3 - 5.1 mmol/L [facility] Chloride 103 96 - 108 mmol/L [facility] Carbon Dioxide 25 22 - 29 mmol/L [facility] Anion Gap 12 12 - 20 [facility] Urea Nitrogen (BUN) 8(L) 9 - 16 mg/dL [facility] Creatinine, Serum 0.63 0.5 - 1.4 mg/dL [facility] Estimated Glomerular Filt Rate >60 [facility] Comment:Chronic Kidney Disea se: Estimated GFR < 60 mL/min/1.75p3Rlmgnr Kidney Disease: Estimated GFR < 15 mL/min/1.73m2 Glucose 147(H) 60 - 115 mg/dL [facility] Calcium 8.6 8.4 - 10.2 mg/dL [facility] Bilirubin, Total 0.9 0.0 - 1.0 mg/dL [facility] Aspartate Amino Transferase 40(H) 5 - 37 U/L [facility] Alanine Aminotransferase 23 0 - 40 U/L [facility] Total Protein 7.8 6.5 - 8.0 g/dL [facility] Albumin Level 3.9 3.5 - 5.0 g/dL [facility] Alkaline Phosphatase 69 39 - 117 U/L [facility] Blood Venous blood specimen / Unknown 07/26/2024 11:45 AM EST 07/26/2024 1:23 PM EST us Phyllis Roach MD LAB BLOOD ORDERAB LES Final Result [facility] [address] [place] [phone] * (ABNORMAL) POCT HGB A1C (05/10/2024 2:29 PM EST) Hemoglobin A1C 6.4(A) 4.0 - 6.0 % QC Media Lot # [id number] Lot# Expiration Date Blood 05/10/2024 2:29 PM EST Phyllis Roach MD POINT OF CARE EKATERINA T ENTER/EDIT ORDERABLES Final Result * Albumin, Random Urine W/Creatinine (05/09/2024 10:55 AM EST) Creatinine, Urine 262.21 mg/dL [facility] Microalbumin Urine 14.0 mg/L [facility] Microalbum Creatinine Ratio Ur 5.3 <30 ug/mg cr [facility] Comment:Albumin/Creatinine R atio Reference Ranges: Normal: < 30 ug/mg creatinine Microalbuminuria: 30 - 300 ug/mg creatinineClinical Albuminuria: > 300 ug/mg creatinine Urine (Urine, Random) 05/09/2024 10:55 AM EST 05/09/2024 1:10 PM EST us Phyllis Roach MD LAB URINE ORDERAB LES Final Result [facility] [address] [place] [phone] * (ABNORMAL) Lipid Panel, Standard (05/09/2024 10:55 AM EST) Triglycerides 106 <150 mg/dL [facility] Comment:Desirable Triglyceri de: less than 150 mg/dLBorderline High Triglyceride 150-199 mg/dLHigh Triglyceride: 200-499 mg/dLVery High Triglyceride: greater than or equal to 5OO mg/dL Cholesterol 138 <200 mg/dL [facility] Comment:Desirable Cholestero l: less than 200 mg/dLBorderline High Cholesterol: 200-239 mg/dLHigh Cholesterol: greater than 239 mg/dL LDL Cholesterol Calculated 84 <100 mg/dL [facility] Comment:Desirable LDL: less than 100 mg/dLNear Optimal/Above Optimal LDL: 110- 129 mg/dLBorderline High LDL: 130-159 mg/dLHigh LDL: 160-189 mg/dLVery High LDL: greater than or equal to 190 mg/dL HDL Cholesterol 33(L) >40 mg/dL [facility] Comment:Desirable HDL: great er than 40 mg/dL Note: This HDL assay may give artificially low results in patients with liver disease. Blood Venous blood specimen / Unknown 05/09/2024 10:55 AM EST 05/09/2024 1:45 PM EST Phyllis Roach MD LAB BLOOD ORDERAB LES Final Result Performing Organization Address City/[facility]/ZIP Co de Phone Number [facility] [address] [place] [phone] * Hepatitis C Antibody with Reflex to HCV, RNA, Quantitative, Real-Time PCR (09/15/2023 10:24 AM EDT) Hepatitis C Antibody Nonreactive Nonreactive [facility] Comment:Antibodies to HCV no t detected; does not exclude early acuteHCV infection. Blood Venous blood specimen / Unknown 09/15/2023 10:24 AM EDT 09/15/2023 11:20 AM EDT Phyllis Roach MD LAB BLOOD ORDERAB LES Final Result Performing Organization Address [facility] Co de Phone Number [facility] [address] [place] [phone] * HIV-1/2 Antigen and Antibodies, Fourth Generation, with Reflexes (09/15/2023 10:24 AM EDT) HIV AB/AG Nonreactive Nonreactive [facility] Comment:HIV-1 p24 Ag and/or HIV-1/HIV-2 Ab not detected.A test result that is nonreactive does not exclude thepossibility of exposure to or infection with HIV-1 and/orHIV-2. Nonreactive results in this assay for individualswith prior exposure to HIV-1 and/or HIV-2 may be due toantigen and antibody levels that are below the limit ofdetection of this assay.The Omer Alinity HIV Ag/Ab Combo assay result andsupplemental assay results should be interpreted inconjunction with the patient's clinical presentation,history and other laboratory results. If the results areinconsistent with clinical evidence, additional testing issuggested to confirm the result. Blood Venous blood specimen / Unknown 09/15/2023 10:24 AM EDT 09/15/2023 11:20 AM EDT us Phyllis Roach MD LAB BLOOD ORDERAB LES Final Result [facility] [address] [place] [phone] from Last 3 Months or Most Recently Relevant to Health Maintenance Insurance [facility] C3 HSN FULL Care Teams Tangled Yarn Worker Relationship Specialty Start Date End Date Anil Gross CNP [address] [place] [phone] PCP - General Family Medicine 08/17/24 [facility] 05/23/24
[2024-08-24 12:54] LABS: TS Negative Control Passed; TS Panel A 0; TS Panel B 0; TS Positive Control Passed; TSpotTB Negative (Negative)
== END 2024-08-21 10:52 | disposition home or self-care (01) ==
LOC: HO.HHCL 10:51
DX: Z11.1 Encounter for screening for respiratory tuberculosis (principal)
CPT/HCPCS: 36415; 86481

== ENCOUNTER 2025-04-03 13:14 | Outpatient (REF) | payer MEDICAID, SELFPAY ==
--- OUTSIDE RECORDS SUMMARY | 2025-04-03 16:12 | XMS_ITS | Encounter Summary ---
Author Organization [employer] Address [address] [facility] [address] [place] [address] Care Team Providers Care An Employee Sponsor Or Advocate And Name Role Phone Bonnie Clark NP Primary Care Provider [phone] Reason for Visit * Reason Onset Date Comments Appointment Request 11/15/2024 Encounter Details Date Type Department Care Team ([facility] st Contact Info) Description 11/15/2024 Telephone [facility] MEDICINE [address] [place] [address] Anil Gross, SCREENER OPERATOR [address] [place] [address] Appointment Request Social History Tobacco Use Types Packs/Day [...] Miscellaneous Notes * Telephone Encounter - Valeria Serrano - 11/15/2024 1:57 PM EDT Tc from pt requesting r/s 11/15 f/u appointment with [place]. documented in this encounter Plan of Treatment Upcoming Encounters Date Type Department Care Team (Late st Contact Info) Description 04/06/2025 1:00 PM EDT Office Visit [facility] MEDICINE [address] [place] [address] Bonnie Clark NP [address] [place] [address] 04/16/2025 2:00 PM EDT Office Visit [facility] OPTOMETRY [address] [place] [address] Jose Daniel, Jena, OD [address] [place] [address] documented as of this encounter Visit Diagnoses Not on filedocumented in this encounter Additional Health Concerns Assessment Noted Time PHQ-9 Depression Total Score: 17 024 11:12 AM EST documented as of this encounter Care Teams An Employee Sponsor Or Advocate And Relationship Specialty Start Date End Date Bonnie Clark NP [address] [place] [address] PCP - General Family Medicine 02/12/25 [facility] 05/23/24 documented as of this encounter
--- OUTSIDE RECORDS SUMMARY | 2025-04-03 16:12 | XMS_ITS | Encounter Summary ---
Author Organization [employer] Address [address] [facility] 7t [place] [address] Care Team Providers Care Chiropractor Sole Practitioner Name Role Phone Bonnie Clark NP Primary Care Provider [phone] Reason for Visit * Reason Onset Date Comments PT1 11/29/2024 Encounter Details Date Type Department Care Team (Late st Contact Info) Description 11/29/2024 Telephone [facility] MEDICINE [address] [place] [address] Anil Gross, SILO TENDER [address] [place] [address] PT1 Social History Tobacco Use Types Packs/Day Years Used Date Smoking Tobacco: Never Passive Smoke Exposure: Never Smokeless Tobacco: Never Alcohol Use Standard Drinks/Week Comments Yes 0 (1 standard drink = 0.6 oz pure alcohol) hx of heavy alcohol use now drinks twice a week-vodka 1/2 Bottle Depression Answer Date Recorded Patient Health Questionnaire-9 Score 12/01/2024 Patient Health Questionnaire-9 Score 23 12/01/2024 Last PHQ-9: Questionnaire Data Not on file 0 12/01/2024 Housing Stability Answer Date Recorded What is your housing situation today? I do not have housing (Staying with others, in a hotel, in a mcc, living outside on the street, on a beach, in a car, or in a park 12/01/[address] you li ve. Do you have problems with any of the following? Not on file 12/01/2024 Food Insecurity Answer Date Recorded Within the [...] Date Recorded Patient Health Questionnaire-2 Score 6 12/01/2024 Sex and Gender Information Value Date Recorded Sex Assigned at Male 05/18/2023 10:34 AM EST Legal Sex Male 10:31 AM EST Gender Identity Male 05/18/2023 10:34 AM EST Sexual Orientation Straight 05/18/2023 10 :34 AM EST documented as of this encounter Functional Status * Over the past 2 weeks, how often have you been bothered by any of the following problems? Question Answer Date of Assessment Author Patient Health Questionnaire -2 Score 6 12/01/2024 1:35 PM EDCinthia Higuera [place] * Little interest or pleasure in doing things Answer Date of Assessment Author Nearly every day 12/01/2024 1:35 PM Cinthia Wilson [place], [place] * Feeling down, depressed, or hopeless Answer Date of Assessment Author Nearly every day 12/01/2024 1:35 PM EDT Cinthia Stratton [place], [place] * Trouble falling or staying asleep, or sleeping too much Answer Date of Assessment Author Nearly every day 12/01/2024 1:35 PM Cinthia Wilson [place], [place] * Feeling tired or having little energy Answer Date of Assessment Author Nearly every day 12/01/2024 1:35 PM Cinthia Wilson [place], [place] * Poor appetite or overeating Answer Date of Assessment Author Several days 12/01/2024 1:35 PM EDT Cinthia Khan MA * Feeling bad about yourself - or that you are a failure or have let yourself or your family down Answer Date of Assessment Author Nearly every day 12/01/2024 1:35 PM EDT Cinthia Stratton [place], [place] * Trouble concentrating on things, such as reading the newspaper or watching television Answer Date of Assessment Author Nearly every day 12/01/2024 1:35 PM EDT Cinthia Stratton [place], [place] * Moving or speaking so slowly that other people could have noticed? Or the opposite - being so fidgety or restless that you have been moving around a lot more than usual. Answer Date of Assessment Author Nearly every day 12/01/2024 1:35 PM EDT Cinthia Fink MA * Thoughts that you would be better off or hurting yourself in some way Answer Date of Assessment Author Several days 12/01/2024 1:35 PM EDT Cinthia Khan MA * Patient Health Questionnaire-9 Score Answer Date of Assessment Author 12/01/2024 1:35 PM EDT Cinthia Khan [place] * How difficult have these problems made it for you to do your work, take care of things at home, or get along with other people? Answer Date of Assessment Author Somewhat difficult 12/01/2024 1:35 PM EDT Cinthia Hatfield [place] documented as of this encounter Miscellaneous Notes * Telephone Encounter - Anusha Nelson - 11/29/2024 12:23 PM EDT Patient calling requesting PT1 Home Address verified: Y/N: Yes Provider name or facility name: [facility] Facility Address: [address] [place] [address] [address], [place] [address] Escort needed: Y/N: Yes Do you have a wheelchair: Y/N: No If yes- Manual or electric: n/a Visits: 6 x a month Patient calling requesting PT1 Home Address verified: Y/N: Yes Provider name or facility name: [facility] Facility Address: [address] [place] [address] [place] [address] Escort needed: Y/N: Yes Do you have a wheelchair: Y/N: No If yes- Manual or electric: n/a Visits: 2 x a month documented in this encounter Plan of Treatment Upcoming Encounters Date Type Department Care Team (Late st Contact Info) Description 04/06/2025 1:00 PM EDT Office Visit [facility] MEDICINE [address] [place] [address] Bonnie Clark NP [address] [place] [address] 04/16/2025 2:00 PM EDT Office Visit [facility] OPTOMETRY [address] [place] [address] Jena Sky, OD [address] [place] [address] documented as of this encounter Visit Diagnoses Not on filedocumented in this encounter Additional Health Concerns Assessment Noted Time PHQ-9 Depression Total Score: 17 024 11:12 AM EST documented as of this encounter Care Teams Chiropractor Sole Practitioner Relationship Specialty Start Date End Date Bonnie Clark NP [address] [place] [address] PCP - General Family Medicine 02/12/25 [facility] 05/23/24 documented as of this encounter
--- OUTSIDE RECORDS SUMMARY | 2025-04-03 16:12 | XMS_ITS | Encounter Summary ---
Author Organization [employer] Address [address] [facility] 7t [place] [address] Care Team Providers Care Water Aerobics Instructor Name Role Phone Bonnie Clark NP Primary Care Provider [phone] Encounter Details Date Type Department Care Team (Late st Contact Info) Description 12/27/2024 Telephone [facility] [address] [place], [place] [phone] Anil Gross, WINE MERCHANT [address] [place] [address] Social History Tobacco Use Types Packs/Day Years Used Date Smoking Tobacco: Never Passive Smoke Exposure: Never Smokeless Tobacco: Never Alcohol Use Standard Drinks/Week Comments Yes 0 (1 standard drink = 0.6 oz pure alcohol) hx of heavy alcohol use now drinks twice a week-vodka 1/2 Bottle Depression Answer Date Recorded Patient Health Questionnaire-9 Score 23 12/01/2024 Patient Health Questionnaire-9 Score 23 12/01/2024 [...] the past 12 months, has t he [employer], gas, oil or water company threatened to [...] encounter Miscellaneous Notes * Telephone Encounter - Anne Castellon - 12/27/2024 11:03 AM EDT Script Tirzepatide-Weight Management (Zepbound) 2.5 MG/0.5ML solution auto- injector for requires a prior authorization. documented in this encounter Plan of Treatment Upcoming Encounters Date Type Department Care Team (Late st Contact Info) Description 04/06/2025 1:00 PM EDT Office Visit [facility] MEDICINE 230 [place] [address] Bonnie Clark NP [address] [place] [address] 04/16/2025 2:00 PM EDT Office Visit [facility] OPTOMETRY [address] [place] [address] Jose DanielJena glass, OD [address] [place] [address] documented as of this encounter Visit Diagnoses Not on filedocumented in this encounter Additional Health Concerns Assessment Noted Time PHQ-9 Depression Total Score: 23 025 1:35 PM EDT documented as of this encounter Care Teams Water Aerobics Instructor Relationship Specialty Start Date End Date Bonnie Clark NP [address] [place] [address] PCP - General Family Medicine 02/12/25 [facility] 05/23/24 documented as of this encounter
--- OUTSIDE RECORDS SUMMARY | 2025-04-03 16:12 | XMS_ITS | Encounter Summary ---
Author Organization [employer] Address 75 [facility] 7t [place] [address] Care Team Providers Care Bindery Cutter Operator Name Role Phone Bonnie Clark NP Primary Care Provider [phone] Encounter Details Date Type Department Care Team (Late st Contact Info) Description 01/01/[address] [facility] MEDICINE [address] [place] [address] Anil Gross, TUBE SKIVER [address] [place] [address] Social History Tobacco Use Types Packs/Day Years [...] the past 12 months, has t he [employer], gas, oil or water company threatened to [...] Description 04/06/2025 1:00 PM EDT Office [facility] MED[facility]INE [address] [place] [address] Bonnie Clark NP 230 [place] [address] 04/16/2025 2:00 PM EDT Office Visit [facility] OPTOMETRY [address] [place] [address] Jose Daniel, Jena, OD [address] [place] [address] documented as of this encounter Visit Diagnoses Not on filedocumented in this encounter Additional Health Concerns Assessment Noted Time PHQ-9 Depression Total Score: 23 025 1:35 PM EDT documented as of this encounter Care Teams Bindery Cutter Operator Relationship Specialty Start Date End Date Bonnie Clark NP [address] [place] [address] PCP - General Family Medicine 02/12/25 [facility] 05/23/24 documented as of this encounter
--- OUTSIDE RECORDS SUMMARY | 2025-04-03 16:12 | XMS_ITS | Encounter Summary ---
Author Organization [employer] Address [address] [facility] 7t [place] [address] Care Team Providers Care Beam Sealer Name Role Phone Anil Gross CNP Primary Care Provider [phone] Bonnie Clark NP Primary Care Provider [phone] Reason for Visit * Reason Onset Date Comments Med Refill 11/13/2024 Encounter Details Date Type Department Care Team (Late st Contact Info) Description 11/13/[address] [facility] MEDICINE [address] [place] [address] Anil Gross CNP [address] [place] [address] Social History Tobacco Use Types Packs/Day Years [...] encounter Miscellaneous Notes * Telephone Encounter - Anil Gross CNP - 11/13/2024 12:34 PM EDT I would need to see patient before I fulfill this request. I would consider going to the next dose if patient isn't having side effects but I have not seen him in months. * Telephone Encounter - Ayala Pereira LPN - 11/13/2024 11:36 AM EDT Is patient going to next dose? Last seen 07/26/24. * Telephone Encounter - Valeria Serrano - 11/13/2024 11:29 AM EDT TC from pt requesting medication refill. Medications needing refill : Tirzepatide-Weight Management (Zepbound) 5 MG/0.5ML solution auto-injector To be sent to: [facility] documented in this encounter Plan of Treatment Upcoming Encounters Date Type Department Care Team (Late st Contact Info) Description 04/06/2025 1:00 PM EDT Office Visit [facility] MEDICINE [address] [place] [address] Bonnie Clark NP [address] [place] [address] 04/16/2025 2:00 PM EDT Office Visit [facility] OPTOMETRY [address] [place] [address] Jose DanielJena glass, OD [address] [place] [address] documented as of this encounter Visit Diagnoses Not on filedocumented in this encounter Additional Health Concerns Assessment Noted Time PHQ-9 Depression Total Score: 17 024 11:12 AM EST documented as of this encounter Care Teams Beam Sealer Relationship Specialty Start Date End Date Anil Gross CNP PCP - General Family Medicine 08/17/24 11/14/24 Bonnie Clark NP [address] [place] [address] PCP - General Family Medicine 02/12/25 [facility] 05/23/24 documented as of this encounter
--- OUTSIDE RECORDS SUMMARY | 2025-04-03 16:12 | XMS_ITS | Encounter Summary ---
Author Organization [employer] Address [address] [facility] 7t [place] [address] Care Team Providers Care Flame Hardening Machine Operator Name Role Phone Bonnie Clark NP Primary Care Provider [phone] Encounter Details Date Type Department Care Team (Late st Contact Info) Description 01/05/2025 Orders Only [facility] MEDICINE [address] [place] [address] Anil Gross, MOCK UP BUILDER [address] [place] [address] Weight gain (Primary Dx); Other fatigue Social History Tobacco Use Types Packs/Day Years [...] the past 12 months, has t he [employer], gas, oil or water company threatened to [...] Description 04/06/2025 1:00 PM EDT Office Visit [facility] MEDICINE [address] [place] [address] Bonnie Clark NP [address] [place] [address] 04/16/2025 2:00 PM EDT Office Visit [facility] OPTOMETRY [address] [place] [address] Jose Daniel, Jena, OD [address] [place] [address] Scheduled Orders Name Type Priority Associated Diagnoses Orde r Schedule TSH W/Reflex to FT4 Lab Routine Weight gain Other fatigue Expected: 01/05/2025 (Approximate), Expires: 01/05/2026 documented as of this encounter Visit Diagnoses Diagnosis Weight gain- Primary Other symptoms concerning nutrition, metabolism, and development Other fatigue documented in this encounter Additional Health Concerns Assessment Noted Time PHQ-9 Depression Total Score: 025 1:35 PM EDT documented as of this encounter Care Teams Flame Hardening Machine Operator Relationship Specialty Start Date End Date Bonnie Clark NP [address] [place] [address] PCP - General Family Medicine 02/12/25 [facility] 05/23/24 documented as of this encounter
--- OUTSIDE RECORDS SUMMARY | 2025-04-03 16:12 | XMS_ITS | Encounter Summary ---
Author Organization [employer] Address 75 [facility] 7t [place] [address] Care Team Providers Care Cash Controller Name Role Phone Bonnie Clark NP Primary Care Provider [phone] Reason for Visit * Reason Onset Date Comments Med Refill 12/15/2024 Encounter Details Date Type Department Care Team (Late st Contact Info) Description 12/15/[address] [facility] MEDICINE [address] [place] [address] Anil Gross, CELL TUBER MACHINE [address] [place] [address] Med Refill Social History Tobacco Use Types Packs/Day Years [...] with others, in a hotel, in a detention, living outside on the street, on a [...] encounter Miscellaneous Notes * Telephone Encounter - Ayala Pereira LPN - 12/15/2024 10:39 AM EDT Medication to soon for refill script sent to [facility] on 12/01/24. * Telephone Encounter - Valeria Serrano - 12/15/2024 10:18 AM EDT TC from pt requesting medication refill. Medications needing refill : Tirzepatide-Weight Management (Zepbound) 2.5 MG/0.5ML solution auto-injector To be sent to: [facility] [place], [place] - [address] [facility] documented in this encounter Plan of Treatment Upcoming Encounters Date Type Department Care Team ([facility] st Contact Info) Description 04/06/2025 1:00 PM EDT Office Visit [facility] MEDICINE [address] [place] [address] Bonnie Clark NP [address] [place] [address] 04/16/2025 2:00 PM EDT Office Visit [facility] OPTOMETRY [address] [place], [place] [phone] Jose Daniel, Jena, OD [address] [place] [address] documented as of this encounter Visit Diagnoses Not on filedocumented in this encounter Additional Health Concerns Assessment Noted Time PHQ-9 Depression Total Score: 23 025 1:35 PM EDT documented as of this encounter Care Teams Cash Controller Relationship Specialty Start Date End Date Bonnie Clark NP [address] [place], [place] [phone] PCP - General Family Medicine 02/12/25 [facility] 05/23/24 documented as of this encounter
--- OUTSIDE RECORDS SUMMARY | 2025-04-03 16:12 | XMS_ITS | Encounter Summary ---
Author Organization [employer] Address [address] [facility] 7t [place] [address] Care Team Providers Care Playground Monitor Name Role Phone Anil Gross CNP Primary Care Provider [phone] Bonnie Clark NP Primary Care Provider [phone] Reason for Visit * Reason Onset Date Comments Med Refill 10/16/2024 Encounter Details Date Type Department Care Team (Late st Contact Info) Description 10/16/2024 Refill [facility] MEDICINE [address] [place] [address] Anil Gross CNP [address] [place] [address] Shortness of breath Social History Tobacco Use Types Packs/Day Years [...] Description 04/06/2025 1:00 PM EDT Office Visit [facility] MEDICINE [address] [place] [address] Bonnie Clark NP [address] [place] [address] 04/16/2025 2:00 PM EDT Office Visit [facility] OPTOMETRY [address] [place] [address] Jose Daniel, Jena, OD [address] [place] [address] documented as of this encounter Visit Diagnoses Diagnosis Shortness of breath documented in this encounter Additional Health Concerns Assessment Noted Time PHQ-9 Depression Total Score: 17 024 11:12 AM EST documented as of this encounter Care Teams Playground Monitor Relationship Specialty Start Date End Date Anil Gross CNP PCP - General Family Medicine 08/17/24 11/14/24 Bonnie Clark NP [address] [place] [address] PCP - General Family Medicine 02/12/25 [facility] 05/23/24 documented as of this encounter
--- OUTSIDE RECORDS SUMMARY | 2025-04-03 16:13 | XMS_ITS | Encounter Summary ---
Author Organization [employer] Address [address] [place] [address] 7t [place] [address] Care Team Providers Care Social Human Services Assistants Name Role Phone Phyllis Skinner MD Primary Care Pro vider Anil Gross SUPERVISOR ROLLER SHOP Primary Care Provider [phone] Bonnie Clark NEEDLE LOOM SETTER Primary Care Provider [phone] Reason for Visit * Reason Onset Date Comments Change PCP 07/10/2024 Encounter Details Date Type Department Care Team (Late st Contact Info) Description 07/10/2024 Telephone [facility] MEDICINE [address] [place], [place] [phone] Phyllis Skinner MD [address] [place], [place] [phone] Change PCP Social History Tobacco Use Types [...] * Telephone Encounter - Chad Sultana - 07/10/2024 12:29 PM EST Tc from pt requesting to change pcp. He feels he's not being seen and current pcp is not following up with his diabetes.pt further states he has requested BW orders in which he has not received. Please contact pt at [phone]. (Urdu Speaker) documented in this encounter Plan of Treatment Upcoming Encounters Date Type Department Care Team (Late st Contact Info) Description 04/06/2025 1:00 PM EDT Office Visit [facility] MEDICINE [address] [place] [address] Bonnie Clark NP [address] [place] [address] 04/16/2025 2:00 PM EDT Office Visit [facility] OPTOMETRY [address] [place] [address] Jena Sky OD [address] [place] [address] documented as of this encounter Visit Diagnoses Not on filedocumented in this encounter Additional Health Concerns Assessment Noted Time PHQ-9 Depression Total Score: 17 024 11:12 AM EST documented as of this encounter Care Teams Social Human Services Assistants Relationship Specialty Start Date End Date Phyllis Skinner MD [address] [place] [address] PCP - General Internal Medicine 07/29/23 08/16/24 Anil Gross CNP [address] [place] [address] PCP - General Family Medicine 08/17/24 11/14/24 Bonnie Clark NP [address] [place] [address] PCP - General Family Medicine 02/12/25 [facility] 05/23/24 documented as of this encounter
--- OUTSIDE RECORDS SUMMARY | 2025-04-03 16:13 | XMS_ITS | Encounter Summary ---
Author Organization [employer] Address [address] [place] [address] 7t [place] [address] Care Team Providers Care Electrical Superintendent Name Role Phone Phyllis Skinner MD Primary Care Pro vider Anli Gross PROFESSIONAL NURSING ASSISTANT Primary Care Provider [phone] Bonnie Clark FARM SUPERVISOR Primary Care Provider [phone] Reason for Visit * Reason Onset Date Comments Referral 05/19/2024 Encounter Details Date Type Department Care Team (Late st Contact Info) Description 05/19/2024 Telephone [facility] MEDICINE [address] [place], [place] [phone] Phyllis Skinner MD [address] [place], [place] [phone] Referral Social History Tobacco Use Types Packs/Day [...] with others, in a hotel, in a [place] [facility], living outside on the street, on a [...] about referral for Psychiatrist. Contact pt at [phone] documented in this encounter Plan of Treatment Upcoming Encounters Date Type Department Care Team (Late st Contact Info) Description 04/06/2025 1:00 PM EDT Office Visit [facility] MEDICINE [address] [place] [address] Bonnie Clark NP [address] [place] [address] 04/16/2025 2:00 PM EDT Office Visit [facility] OPTOMETRY [address] [place] [address] Jena Sky OD [address] [place] [address] documented as of this encounter Visit Diagnoses Not on filedocumented in this encounter Additional Health Concerns Assessment Noted Time PHQ-9 Depression Total Score: 17 024 9:10 AM EDT documented as of this encounter Care Teams Electrical Superintendent Relationship Specialty Start Date End Date Phyllis Skinner MD [address] [place] [address] PCP - General Internal Medicine 07/29/23 08/16/24 Anil Gross CNP [address] [place] [address] PCP - General Family Medicine 08/17/24 11/14/24 Bonnie Clark NP [address] [place] [address] PCP - General Family Medicine 02/12/25 [facility] 05/23/24 documented as of this encounter
--- OUTSIDE RECORDS SUMMARY | 2025-04-03 16:13 | XMS_ITS | Encounter Summary ---
Author Organization [employer] Address [address] [place] [address] 7t [place] [address] Care Team Providers Care Recreation Establishment Manager Name Role Phone Bonnie Clark NP Primary Care Provider [phone] Reason for Visit * Reason Onset Date Comments pt1 02/12/2025 Encounter Details Date Type Department Care Team ([facility] st Contact Info) Description 02/12/2025 Telephone [facility] MEDICINE [address] [place] [address] Bonnie Clark NP [address] [place] [address] pt1 Social History Tobacco Use Types Packs/Day Years Used Date Smoking Tobacco: Never Passive Smoke Exposure: Never Smokeless Tobacco: Never Alcohol Use Standard Drinks/Week Comments Yes 0 (1 standard drink = 0.6 oz pure alcohol) hx of heavy alcohol use now drinks twice a week-vodka 1/2 Bottle Depression Answer Date Recorded Patient Health Questionnaire-9 Score 12/01/2024 Patient Health Questionnaire-9 Score 12/01/2024 Last PHQ-9: Questionnaire Data Not on [...] encounter Miscellaneous Notes * Telephone Encounter - Paresh Gaona - 02/12/2025 2:24 PM EDT Patient calling requesting PT1 Home Address verified: Y/N: Yes Provider name or facility name: [address] [place] [address] Escort needed: Yes Do you have a wheelchair: Y/N: No If yes- Manual or electric: N/A Visits: x monthly 2.) Patient calling requesting PT1 Home Address verified: Y/N: Yes Provider name or facility name: [address] [facility] [address] Escort needed: Y/N: Yes Do you have a wheelchair: Y/N: No If yes- Manual or electric: N/A Visits: 8x a month 3.) Patient calling requesting PT1 Home Address verified: Y/N: Yes Provider name or facility name: [address] [facility] [address] Escort needed: Y/N: Yes Do you have a wheelchair: Y/N: No If yes- Manual or electric: n/a Visits: 8x a month documented in this encounter Plan of Treatment Upcoming Encounters Date Type Department Care Team (Late st Contact Info) Description 04/06/2025 1:00 PM EDT Office Visit [facility] MEDICINE [address] [place] [address] Bonnie Clark NP [address] [place] [address] 04/16/2025 2:00 PM EDT Office Visit [facility] OPTOMETRY [address] [place] [address] Jose DanielJena glass, OD [address] [place] [address] documented as of this encounter Visit Diagnoses Not on filedocumented in this encounter Additional Health Concerns Assessment Noted Time PHQ-9 Depression Total Score: 23 025 1:35 PM EDT documented as of this encounter Care Teams Recreation Establishment Manager Relationship Specialty Start Date End Date Bonnie Clark NP [address] [place] [address] PCP - General Family Medicine 02/12/25 [facility] 05/23/24 documented as of this encounter
--- OUTSIDE RECORDS SUMMARY | 2025-04-03 16:13 | XMS_ITS | Clinical Summary ---
Author Organization [email or web address] Address [address] [facility] [address] [place] [address] Care Team Providers Care Rail Car Repairman Name Role Phone Bonnie Clark NP Primary Care Provider [phone] Allergies No known active allergies Medications * This document contains information received from the source organization and may not represent a complete record from that organization. Multiple Vitamin (Multivitamin) tablet Take 1 tablet by mouth in the morning. 90 tablet 1 4 Active ergocalciferol (Vitamin D2) 1.25 MG (60798 UT) capsule Take 1 capsule (1.25 mg) by mouth 1 (one) time per week. 12 capsule 1 4 Active ammonium lactate (Lac-Hydrin) 12 % cream APPLY TOPICALLY NEEDED FOR DRY SKIN 140 g 2 5 Active sodium chloride ([place]) 0.65 % nasal sprayIndications:E pistaxis SPRAY 1 SPRAY INTO EACH NOSTRIL NEEDED FOR CONGESTION 15 mL 3 5 Active losartan (Cozaar) 25 MG tabletIndications: Primary hypertension TAKE 1 TABLET BY MOUTH EVERY DAY 90 tablet 5 Active amLODIPine (Norvasc) 10 MG tablet TAKE 1 TABLET BY MOUTH EVERY DAY 90 tablet 5 Active atorvastatin (Lipitor) 20 MG tablet TAKE 1 TABLET BY MOUTH EVERY DAY 90 tablet 5 Active lidocaine (Lidoderm) 5 % patch APPLY 1 PATCH TOPICALLY TO SKIN IN THE MORNING. LEAVE ON FOR 12 HOURS AND OFF FOR 12 HOURS DIRECTED 30 patch 2 5 Active albuterol 108 (90 Base) MCG/ACT inhalerIndications :Shortness of breath INHALE 2 PUFFS BY MOUTH EVERY 4 HOURS NEEDED FOR WHEEZING 18 g 5 Active Spacer/Aero-Holdin g Chambers deviceIndications: Shortness of breath USE WITH INHALER DIRECTED 1 each 5 Active Blood Pressure kit USE TO CHECK BLOOD PRESSURE ONCE A DAY 1 kit 5 Active paliperidone (Invega) 6 MG 24 hr tabletIndications: Schizoaffective disorder, depressive type (CMS/HCC) (HCC) Take 1 tablet (6 mg) by mouth in the morning. Do not crush, chew, or split. 30 tablet 1 5 Active loratadine (Claritin) 10 MG tabletIndications: Moderate persistent asthma, unspecified whether complicated,Season al allergies Take 1 tablet (10 mg) by mouth Once per day. 30 tablet 11 5 026 Active meloxicam (Mobic) 15 MG tabletIndications: Osteoarthritis of both knees, unspecified osteoarthritis type Take 1 tablet (15 mg) by mouth Once per day. 30 tablet 11 5 026 Active Tirzepatide-Weight Management (Zepbound) 2.5 MG/0.5ML solution auto-injectorIndic ations:Class 3 severe obesity due to excess calories with body mass index (BMI) of 60.0 to 69.9 in adult, unspecified whether serious comorbidity present ([facility]) Inject 0.5 mL (2.5 mg) under the skin 1 (one) time per week. 2 mL 5 Active fluticasone (Flonase) 50 MCG/ACT nasal sprayIndications:M oderate persistent asthma, unspecified whether complicated,Season al allergies INSTILL 1-2 SPRAYS IN EACH NOSTRIL ONCE DAILY 48 g 5 Active Active Problems Problem Noted Date [...] factors using open-ended questions. Provided information for [facility]- crisis numbers and [facility] help line. I will referred pt for IP therapy and psychopharmacology, Yazan also agreed to do referral for CM to assist with transportation and housing insecurities. clinician will provide follow-up BE per patient's request to assess sxs and provide additional support. PLAN: (check all that apply) New/Additional Services needed Off-site services for Behavioral Health Integration Plan Internal Follow up with [facility] External OP therapy referral and OP psychiatry Referral Patient Self Plan Patient to utilize skills provided in intervention , Patient to reach out to [facility] team as needed, Comply with medication , Patient to engage in OP therapy , and Patient to reach out to [facility] as needed Vitamin D deficiency 11/26/2023 [...] Unable to engage with last referral for [facility] in [place]. Pt identifies listening to music as a relaxing coping strategy. During today's session Yazan was provided with a safe space to share his concerns and emotions. Reviewed and assessed for risk, current stressors and protective factors using open-ended questions. Pt will be referred to psych with Chase Guzm[facility] and [facility] for OP therapy. clinician will be available [...] for [facility]- crisis numbers and [facility] help line. I will referred pt for IP therapy and psychopharmacology, Yazan also agreed to do referral for CM to assist with transportation and housing insecurities. clinician will provide follow-up BE per patient's request to assess sxs and provide additional support. PLAN: (check all that apply) New/Additional Services needed Off-site services for Behavioral Health Integration Plan Internal Follow up with [facility] External OP BH therapy referral and OP psychiatry Referral Patient Self Plan Patient to utilize skills provided in intervention , Patient to reach out to [facility] team as needed, Comply with medication , Patient to engage in OP therapy , and Patient to reach out to [facility] as needed Lower extremity edema 07/30/2023 Back pain 07/30/2023 Health care maintenance 07/30/2023 Type 2 diabetes mellitus wit h hyperglycemia, without long-term current use of insulin 05/18/2023 Primary hypertension 05/18/2023 Morbid obesity (CMS/HCC) 05/18/2023 Auditory hallucination 05/18/2023 Schizoaffective disorder, depressive type (CMS/H CC) 05/18/2023 Assessment & Plan (02/01/2024 3:16 PM EDT): [...] for [facility]- crisis numbers and [facility] help line. I will referred pt for IP therapy and psychopharmacology, Yazan also agreed to do referral for CM to assist with transportation and housing insecurities. clinician will provide follow-up BE per patient's request to assess sxs and provide additional support. PLAN: (check all that apply) New/Additional Services needed Off-site services for Behavioral Health Integration Plan Internal Follow up with [facility] External OP BH therapy referral and OP psychiatry Referral Patient Self Plan Patient to utilize skills provided in intervention , Patient to reach out to [facility] team as needed, Comply with medication , Patient to engage in OP therapy , and Patient to reach out to [facility] as needed Assessment & Plan (05/24/2023 1:22 [...] as he would like to schedule with [facility] therapist. I provided my information, and he agrees to contact me if needed. I also provided him with the number for [facility] crisis. At this time Yazan Stallings meets criteria for Visit Diagnoses: Problem List Items Addressed This Visit Other Auditory hallucination Schizoaffective disorder, depressive type ([facility]) Alcohol use disorder Patient ready to address current needs Yes Strengths include willingness to engage, coping skills and support system. Alcoholism (CMS/HCC) 05/18/2023 WARREN (obstructive sleep apnea) 05/18/2023 Assessment & Plan (07/26/2024 11:42 AM EST): Will send referral for sleep study today for CPAP initiation Homelessness 08/18/2018 Bipolar 1 disorder (CMS/HCC) 08/26/2017 Incisional hernia 03/16/2017 Overview (09/07/2024): Will plan for laparoscopic or DaVinci repair. Will need anticoagulation d/t morbid obesity. Alcohol use disorder, modera te, in early remission ([facility]) 12/22/2016 GERD (gastroesophageal reflux disease) 7 Insomnia secondary to depression with anxiety Bilateral low back pain with sciatica 09/05/2015 Overview (09/07/2024): Early multilevel degenerative bone spurring anterior lumbar spine [facility]. Patient seen for PT 02/17/16 at [facility] but d/c due to poor activity tolerance and limited motivation. They recommend referral [facility] comprehensive weight management program which I already did and he DNKA 11/12/15. Osteoarthritis of knees, bilateral 09/05/2015 Overview (09/07/2024): Mild bilateral tri-compartmental OA both knee's via x-rays 09/16/15 at [facility] Resolved Problems Problem Noted Date Diagnosed Date Resolved Date Morbid obesity with BMI of 5 0.0-59.9, adult ([facility]) 09/05/2015 12/01/2024 Overview (09/07/2024): [facility] weight loss specialist appt 11/12/15. Encounters * This document contains information received from the source organization and may not represent a complete record from that organization. Date Type Department Care Team Description 04/03/2025 Refill [facility] [address] [place] [address] Phyllis Skinner MD 03/30/2025 Patient Outreach [facility] MED & PEDS [address], [place] [phone] Bonnie Clark NP Pre-visit Planning (SDOH negative. Tobacco screening negative, ) 02/22/2025 Refill [facility] [address] [place], [place] [phone] Anil Gross CNP Moderate persistent asthma, unspecified whether complicated; Seasonal allergies 02/12/2025 Patient Outreach [facility] [address] [place] [address] Bonnie Clark NP Care Coordination ([facility] outreach for SDOH PT-1 and food needs-referral completed /) 02/12/[address] [address] Bonnie Clark NP pt1 [address] [address] Anil Gross CNP Chart Prep 01/31/2025 Patient Outreach [facility] [address] [place] [address] Anil Gross CNP Pre-visit Planning ([facility] unable to reach [facility] ) 01/16/[address] [address] Jhonny Domingo [place] Appointment Request 01/08/[address] [address] Anil Gross CNP Prior Authorization 01/05/2025 2:00 PM EDT Telemedicine [address] [address] Anil Gross CNP Health care maintenance (Primary Dx); Weight gain; Schizoaffective disorder, depressive type (CMS/HCC) 01/05/2025 Orders Only [address] [address] Anil Gross CNP Weight gain (Primary Dx); Other fatigue 01/04/[address] [address] Anil Gross CNP Chart Prep 01/01/[address] [address] Anil Gross CNP from Last 3 Months Immunizations Immunization Administration Dates Next Due Hep B, adult [...] What is your housing situation today? I have gold lezama 03/30/[address] you li ve. Do you have problems with any of the following? None of the above 03/30/2025 Food Insecurity Answer Date Recorded Within the past 12 months, y ou worried that your food would run out before you got money to buy more: Never True 03/30/2025 Within the past 12 months,th e food you bought just didn't last and you didn't have enough money to get more: Never True 08/2024 Transportation Answer Date Recorded In the past 12 months, has l ack of transportation kept you from medical appts, meetings, work or from getting things needed for daily living? No 03/30/2025 Utilities Answer Date Recorded In the past 12 months, has t he electric, gas, oil or water company threatened to shut off services in your home? No 03/30/2025 Depression Answer Date Recorded Patient Health Questionnaire-2 Score 6 12/01/2024 Internet Access Answer Date Recorded Internet Access Q1 Yes 03/30/2025 Internet Access Q2 Not on file 03/30/2025 Sex and Gender Information Value Date Recorded Sex Assigned at Male 05/18/2023 10:34 AM EST Legal Sex Male 10:31 AM EST Gender Identity Male 05/18/2023 10:34 AM EST Sexual Orientation Straight 05/18/2023 10 :34 AM EST Last Filed Vital Signs Vital Sign Reading Time Taken Comments Blood Pressure 132/90 12/01/2024 12:59 PM EDT Pulse 85 12/01/2024 12:59 PM EDT Temperature 37.5 C (99.5 F) 12/01/2024 12:59 PM EDT Respiratory Rate 20 12/01/2024 12:59 PM EDT Oxygen Saturation 95% 12/01/2024 12:59 PM EDT Inhaled Oxygen Concentration - - Weight 169 kg (372 lb 4 oz) 12/01/2024 12:59 PM EDT Height 167.6 cm (5' 6 ) 12/01/2024 12:59 PM EDT Body Mass Index 60.08 12/01/2024 12:59 PM EDT Plan of Treatment Upcoming Encounters Date Type Department Care Team (Late st Contact Info) Description 04/06/2025 1:00 PM EDT Office Visit [facility] [address] [place] [address] Bonnie Clark NP [address] [place] [address] 04/16/2025 2:00 PM EDT Office Visit [facility] OPTOMETRY [address] [place] [address] Jose DanielJena glass, OD [address] [place] [address] Health Maintenance Due Date Last Done Comments Diabetes: Foot Exam 1993 Family Planning (PISQ) 1998 HPV Vaccines (1 - Male 3-dose series) 1998 Pneumococcal Vaccine: Pediatrics (0 to 5 Years) and At-Risk Patients (6 to 49) Years (2 of 2 - PPSV23) 01/06/2018 11/11/2017 Hepatitis B Vaccines (3 of 3 - 19+ 3-dose series) 05/27/2024 01/26/2024, 11/26/2023 COVID-19 Vaccine (2 - season) 2025 07/29/2023 Influenza Vaccine (#1) 2025 07/29/2023 Diabetes: Urine Protein Screening 05/09/2025 05/09/2024, 09/15/2023, 05/25/2023 Lipid Panel 05/09/2025 05/09/2024, 09/15/2023 Depression Monitoring 06/02/2025 12/01/2024, 06/06/2 025 Diabetes: Hemoglobin A1C 06/02/2025 025, 05/10/2024, 05/09/2024, Additional history exists Alcohol/Substance Use Screening 07/26/2025 07/26/2024 Eye Exam 11/24/2025 11/25/2023, 10/28, 11/25/2023, Additional history exists Disability Screening 12/01/2025 12/01/2024 Tobacco Screening 01/05/2026 01/05/2025 SDOH Screening 03/30/2026 03/30/2025 DTaP/Tdap/Td Vaccines (2 - Td or Tdap) [...] age to complete this topic Meningococcal B Vaccine Aged Out No l onger eligible based on patient's age to complete [...] Procedure Name Priority Date/Time Associated Diagnosis Comments POCT GLYCATED HEMOGLOBIN, TOTAL Routine 12/01/2024 1:01 PM EDT Pre-diabetes ALBUMIN, RANDOM URINE W/CREATININE Routine 05/09/2024 10:55 [...] Recently Relevant to Health Maintenance Results * POCT HGB A1C (12/01/2024 1:01 PM EDT) Hemoglobin A1C 5.9 4.0 - 6.0 % QC Media Lot # [id number] Lot# Expiration Date [id number] Blood 12/01/2024 1:01 PM EDT Anil Gross CNP POINT OF CARE TEST ENTER/ EDIT ORDERABLES Final Result * Albumin, Random Urine W/Creatinine (05/09/2024 10:55 AM EST) Creatinine, Urine 262.21 mg/dL [facility] Microalbumin Urine 14.0 mg/L [facility] Microalbum Creatinine Ratio Ur 5.3 <30 ug/mg cr [facility] Comment:Albumin/Creatinine R atio Reference Ranges: Normal: < 30 ug/mg creatinine Microalbuminuria: 30 - 300 ug/mg creatinineClinical Albuminuria: > 300 ug/mg creatinine Urine (Urine, Random) 05/09/2024 10:55 AM EST 05/09/2024 1:10 PM EST Phyllis Roach MD LAB URINE ORDERAB LES Final Result [facility] [address] [place] [address] [phone] * (ABNORMAL) Lipid Panel, Standard (05/09/2024 10:55 AM EST) Triglycerides 106 <150 mg/dL [facility] Comment:Desirable Triglyceri de: less than 150 mg/dLBorderline High Triglyceride 150-199 mg/dLHigh Triglyceride: 200-499 mg/dLVery High Triglyceride: greater than or equal to 5OO mg/dL Cholesterol 138 <200 mg/dL [facility] Comment:Desirable Cholestero l: less than 200 mg/dLBorderline High Cholesterol: 200-239 mg/dLHigh Cholesterol: greater than 239 mg/dL LDL Cholesterol Calculated 84 <100 mg/dL [facility] Comment:Desirable LDL: less than 100 mg/dLNear Optimal/Above Optimal LDL: 110- 129 mg/dLBorderline High LDL: 130-159 mg/dLHigh LDL: 160-189 mg/dLVery High LDL: greater than or equal to 190 mg/dL HDL Cholesterol 33(L) >40 mg/dL [facility] Comment:Desirable HDL: great er than 40 mg/dL Note: This HDL assay may give artificially low results in patients with liver disease. Blood Venous blood specimen / Unknown 05/09/2024 10:55 AM EST 05/09/2024 1:45 PM EST us Phyllis Roach MD LAB BLOOD ORDERAB LES Final Result Performing Organization Address [facility]/ZIP Co de Phone Number [facility] [address] [place] [phone] * Hepatitis C Antibody with Reflex to HCV, RNA, Quantitative, Real-Time PCR (09/15/2023 10:24 AM EDT) Hepatitis C Antibody Nonreactive Nonreactive [facility] Comment:Antibodies to HCV no t detected; does not exclude early acuteHCV infection. Blood Venous blood specimen / Unknown 09/15/2023 10:24 AM EDT 09/15/2023 11:20 AM EDT us Phyllis Roach MD LAB BLOOD ORDERAB LES Final Result Performing Organization Address City/[facility]/ZIP Co de Phone Number [facility] [address] [place] [phone] * HIV-1/2 Antigen and Antibodies, Fourth Generation, with Reflexes (09/15/2023 10:24 AM EDT) [facility] HIV AB/AG Nonreactive Nonreactive [facility] Comment:HIV-1 p24 Ag and/or HIV-1/HIV-2 Ab not detected.A test result that is nonreactive does not exclude thepossibility of exposure to or infection with HIV-1 and/orHIV-2. Nonreactive results in this assay for individualswith prior exposure to HIV-1 and/or HIV-2 may be due toantigen and antibody levels that are below the limit ofdetection of this assay.The Quikey HIV Ag/Ab Combo assay result andsupplemental assay results should be interpreted inconjunction with the patient's clinical presentation,history and other laboratory results. If the results areinconsistent with clinical evidence, additional testing issuggested to confirm the result. Blood Venous blood specimen / Unknown 09/15/2023 10:24 AM EDT 09/15/2023 11:20 AM EDT us Phyllis Roach MD LAB BLOOD ORDERAB LES Final Result [facility] [address] [place] [address] [phone] from Last 3 Months or Most Recently Relevant to Health Maintenance Insurance [facility] [employer] [address] [employer] Care Teams Rail Car Repairman Relationship Specialty Start Date End Date Bonnie Clark NP [address] [place] [phone] PCP - General Family Medicine 02/12/25 [facility] 05/23/24
--- OUTSIDE RECORDS SUMMARY | 2025-04-03 16:13 | XMS_ITS | Encounter Summary ---
Author Organization [employer] Address [address] [place] [address] 7t [place] [address] Care Team Providers Care Signal Integrity Engineer Name Role Phone Phyllis Skinner MD Primary Care Pro vider Anil Gross SAFETY DEPOSIT BOXES CUSTODIAN Primary Care Provider [phone] Bonnie Clark SAP CONSULTANT Primary Care Provider [phone] Reason for Visit * Reason Onset Date Comments PT-1 06/30/2024 Encounter Details Date Type Department Care Team (Late st Contact Info) Description 06/30/[address] [facility] MEDICINE [address] [place], [place] [phone] Phyllis Skinner MD [address] [place], [place] [phone] PT-1 Social History Tobacco Use Types Packs/Day [...] Y/N: Yes Provider name or facility name: [facility] Facility Address: [address] [facility] Escort needed: Y/N: Yes Do you have a wheelchair: Y/N: No (uses cane) If yes- Manual or electric: N/A Visits: 8 times monthly - Patient calling requesting PT1 Home Address verified: Y/N: Yes Provider name or facility name: [facility] Facility Address: [address] [facility] Escort needed: Y/N: Yes Do you have a wheelchair: Y/N: No If yes- Manual or electric: N/A Visits: 5 monthly documented in this encounter Plan of Treatment Upcoming Encounters Date Type Department Care Team (Late st Contact Info) Description 04/06/2025 1:00 PM EDT Office Visit [facility] MEDICINE [address] [place] [address] Bonnie Clark NP [address] [place] [address] 04/16/2025 2:00 PM EDT Office Visit [facility] OPTOMETRY [address] [place] [address] Jose Daniel, Jena, OD [address] [place] [address] documented as of this encounter Visit Diagnoses Not on filedocumented in this encounter Additional Health Concerns Assessment Noted Time PHQ-9 Depression Total Score: 17 024 11:12 AM EST documented as of this encounter Care Teams Signal Integrity Engineer Relationship Specialty Start Date End Date Phyllis Skinner MD [address] [place] [address] PCP - General Internal Medicine 07/29/23 08/16/24 [place] [address] PCP - General Family Medicine 08/17/24 11/14/24 Bonnie Clark NP [address] [place] [address] PCP - General Family Medicine 02/12/25 [facility] 05/23/24 documented as of this encounter
--- OUTSIDE RECORDS SUMMARY | 2025-04-03 16:13 | XMS_ITS | Encounter Summary ---
Author Organization [employer] Address [address] [place] [address] [address] [place] [address] Care Team Providers Care Ornamental Metal Worker Apprentice Name Role Phone Phyllis Skinner MD Primary Care Pro vider Anil Gross CURRICULUM DEVELOPMENT SPECIALIST Primary Care Provider [phone] Bonnie Clark CONDENSER SETTER Primary Care Provider [phone] Reason for Visit * Reason Onset Date Comments PT-1 07/07/2024 Encounter Details Date Type Department Care Team (Late st Contact Info) Description 07/07/2024 Telephone [facility] MEDICINE [address] [place], [place] [phone] Phyllis Skinner MD [address] [place], [place] [phone] PT-1 Social History Tobacco Use Types Packs/Day [...] Y/N: Yes Provider name or facility name: [facility] Facility Address: [address] [place] [address] Escort needed: Y/N: No Do you have a wheelchair: Y/N: No If yes- Manual or electric: N/A (uses walker) Visits: 5 Monthly documented in this encounter Plan of Treatment Upcoming Encounters Date Type Department Care Team (Late st Contact Info) Description 04/06/2025 1:00 PM EDT Office Visit [facility] MEDICINE [address] [place] [address] Bonnie Clark NP [address] [place], [place] [phone] 04/16/2025 2:00 PM EDT Office Visit [facility] OPTOMETRY [address] [place], [place] [phone] Jena Sky, MAHNAZ [address] [place] [address] documented as of this encounter Visit Diagnoses Not on filedocumented in this encounter Additional Health Concerns Assessment Noted Time PHQ-9 Depression Total Score: 17 024 11:12 AM EST documented as of this encounter Care Teams Ornamental Metal Worker Apprentice Relationship Specialty Start Date End Date Phyllis Skinner MD [address] [place] [address] PCP - General Internal Medicine 07/29/23 08/16/24 Anil Gross CNP [address] [place] [address] PCP - General Family Medicine 08/17/24 11/14/24 Bonnie Clark NP [address] [place] [address] PCP - General Family Medicine 02/12/25 [facility] 05/23/24 documented as of this encounter
--- OUTSIDE RECORDS SUMMARY | 2025-04-03 16:13 | XMS_ITS | Encounter Summary ---
Author Organization [employer] Address [address] [place] [address] [address] [place] [address] Care Team Providers Care Instrument And Controls Technician Name Role Phone Phyllis Skinner MD Primary Care Pro vider Anil Gross FIELD AGENT Primary Care Provider [phone] Bonnie Clark CHILDCARE CENTER DIRECTOR Primary Care Provider [phone] Encounter Details Date Type Department Care Team (Late st Contact Info) Description 05/19/[address] [facility] [address] [place], [place] [phone] Phyllis Skinner MD [address] [place], [place] [phone] Social History Tobacco Use Types Packs/Day Years [...] 04/06/2025 1:00 PM EDT Office Visit [facility] [address] [place] [address] Bonnie Clark CHILDCARE CENTER DIRECTOR [address] [place] [address] 04/16/2025 2:00 PM EDT Office Visit [facility] OPTOMETRY [address] [place] [address] Jose Daniel, Jena, OD [address] [place] [address] documented as of this encounter Visit Diagnoses Not on filedocumented in this encounter Additional Health Concerns Assessment Noted Time PHQ-9 Depression Total Score: 17 024 9:10 AM EDT documented as of this encounter Care Teams Instrument And Controls Technician Relationship Specialty Start Date End Date Phyllis Skinner MD [address] [place] [address] PCP - General Internal Medicine 07/29/23 08/16/24 Anil Gross CNP [address] [place] [address] PCP - General Family Medicine 08/17/24 11/14/24 Bonnie Clark NP [address] [place] [address] PCP - General Family Medicine 02/12/25 [facility] 05/23/24 documented as of this encounter
--- OUTSIDE RECORDS SUMMARY | 2025-04-03 16:13 | XMS_ITS | Encounter Summary ---
Author Organization [employer] Address [address] [place] [address] [address] [place] [address] Care Team Providers Care Comic Book Writer Name Role Phone Phyllis Skinner MD Primary Care Pro vider Anil Gross COMPOUND MACHINE OPERATOR Primary Care Provider [phone] Bonnie Clark SUBSTATION DESIGNER Primary Care Provider [phone] Reason for Visit * Reason Onset Date Comments Referral 07/04/2024 Encounter Details Date Type Department Care Team (Late st Contact Info) Description 07/04/2024 Telephone [facility] MEDICINE [address] [place], [place] [phone] Phyllis Skinner MD [address] [place], [place] [phone] Referral Social History Tobacco Use Types Packs/Day [...] study on 07/30/23 to be [facility] the [facility] in [place] due to pt not having transportation. If any questions contact pt at [phone] documented in this encounter Plan of Treatment Upcoming Encounters Date Type Department Care Team (Late st Contact Info) Description 04/06/2025 1:00 PM EDT Office Visit [facility] MEDICINE [address] [place], [place] [phone] Bonnie Clark NP [address] [place] [address] 04/16/2025 2:00 PM EDT Office Visit [facility] OPTOMETRY [address] [place] [address] Jena Sky, OD [address] [place], [place] [phone] documented as of this encounter Visit Diagnoses Not on filedocumented in this encounter Additional Health Concerns Assessment Noted Time PHQ-9 Depression Total Score: 17 024 11:12 AM EST documented as of this encounter Care Teams Comic Book Writer Relationship Specialty Start Date End Date Phyllis Skinner MD [address] [place] [address] PCP - General Internal Medicine 07/29/23 08/16/24 Anil Gross CNP [address] [place] [address] PCP - General Family Medicine 08/17/24 11/14/24 Bonnie Clark NP [address] [place] [address] PCP - General Family Medicine 02/12/25 [facility] 05/23/24 documented as of this encounter
--- OUTSIDE RECORDS SUMMARY | 2025-04-03 16:13 | XMS_ITS | Clinical Summary ---
Author Organization [facility] Address [address] [place] [address] Care Team Providers Care Felt Coverer Name Role Phone Larisa Phillips [facility] Primary Care Provider [phone] Source Comments PLEASE NOTE, if this patient [...] stripsIndications: Type 2 diabetes mellitus without complication 1 Strip 2 (two) times daily as [...] hr tabletIndications: Post-traumatic stress disorder,Bipolar II disorder Take 2 tabs by mouth daily at [...] Diagnosed Date Homelessness 08/18/2018 Bipolar 1 disorder 08/26/2017 Incisional hernia, without obstruction or gangre ne 03/16/2017 Overview (12/20/2017): Will plan for laparoscopic or DaVinci repair. Will need anticoagulation d/t morbid obesity. Post-traumatic stress disorder 12/22/2016 Alcohol use disorder, moderate, in early remissi on 12/22/2016 Anxiety and depression 10/13/2016 Insomnia secondary to depression with anxiety GERD (gastroesophageal reflux disease) 7 Vitamin D deficiency 09/06/2015 Morbid obesity with BMI of 50.0-59.9, adult 08/26 Overview (03/02/2016): [facility] weight loss specialist appt 11/12/15. Type 2 diabetes mellitus without complication Osteoarthritis of knees, bilateral 09/05/2015 Overview (12/25/2015): Mild bilateral tri-compartmental OA both knee's via x-rays 09/16/15 at [facility] Bilateral low back pain with sciatica 09/05/2015 Overview (03/02/2016): Early multilevel degenerative bone spurring anterior lumbar spine via x-rays 09/16/15 at [facility]. Patient seen for PT 02/17/16 at [place] but d/c due to poor activity tolerance and limited motivation. They recommend referral [facility] comprehensive weight management program which I already did and he [facility] 11/12/15. 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 12/22/2016 Immunizations Immunization Administration Dates Next Due PNEUMOCOCCAL CONJUGATE PCV [...] 80 11/11/2017 10:13 AM EDT Temperature 36.7 C (98 F) 11/11/2017 10:13 AM EDT Respiratory Rate 20 11/11/2017 10:13 AM EDT Oxygen Saturation 98% 09/30/2016 10:09 AM EDT Inhaled Oxygen Concentration - - Weight 158.8 kg (350 lb) 11/11/2017 10:13 AM EDT Height 167.6 cm (5' 6 ) 11/11/2017 10:13 AM EDT Body Mass Index 56.49 11/11/2017 10:13 AM EDT Plan of Treatment Health Maintenance Due Date Last Done Comments Anxiety Screening 1983 Imm-HPV (1 - 3-dose SCDM series) 2010 Annual Wellness (Adult): Indicated (All Coverage) 11/11/2018 11/11/2017, 10/13/2016 Hypertension Screening (#1) 11/11/2018 Tobacco Screening 11/11/2018 11/11/2017 Imm-Hepatitis B (3 of 3 - 19 + 3-dose series) 05/27/2024 01/26/2024, 11/26/2023 Alcohol and Drug Screen 06/28/2024 08/27/19 18, 10/16/2016, 10/16/2016, Additional history exists Depression Annual Screen 06/28/2024 08/26/2017, 09/27 [id number] ( season) 2025 024 Imm-DTaP/Tdap/Td (2 - Td or Tdap) 11/12/2027 018 Diabetes Screening 12/02/2027 12/01/2024, 1 07/18/2022, 11/11/2017, Additional history exists Lipid Screening 05/09/2029 05/09/2024, 10/26, 09/05/2015 Imm-Influenza Discontinued 07/29/2023 HIV Screening Completed 09/15/2023, 08/27, 11/11/2017, Additional history exists Hepatitis C Screening Completed 09/15/2023, 018 Procedures Procedure Name Priority Date/Time Associated Diagnosis Comments ANTIBODY HIV-1&HIV-2 SINGLE RESULT Routine 11/11/2017 10:37 AM EDT Screening for human immunodeficiency virus HEPATITIS A,B,C PANEL Routine 11/11/2017 10:37 AM EDT Encounter for hepatitis C screening test for low risk patient HEMOGLOBIN GLYCOSYLATED A1C Routine 11/11/2017 10:37 AM EDT Type 2 diabetes mellitus without complication, without long-term current use of insulin (HCC) LIPID PANEL Routine 11/11/2017 10:37 AM EDT Routine general medical examination at a health care facility from Last 3 Months or Most Recently Relevant to Health Maintenance Results * (ABNORMAL) HEPATITIS A,B,C PANEL (11/11/2017 10:37 AM EDT) HEPATITIS B SURFACE ANTIBODY NEGATIVE NEGATIVE [facility] HEPATITIS B SURFACE ANTIGEN NEGATIVE NEGATIVE [facility] Comment: Over the counter supplements containing high doses of biotin may interfere with this assay. If interference is suspected, patients shoud be retested after refraining from biotin supplements for 72 hours. HEPATITIS C VIRUS DIAGNOSTIC NEGATIVE NEGATIVE [facility] HEPATITIS A ANTIBODY TOTAL NEGATIVE NEGATIVE [facility] Comment: Over the counter supplements containing high doses of biotin may interfere with this assay. If interference is suspected, patients shoud be retested after refraining from biotin supplements for 72 hours. HEPATITIS B CORE ANTIBODY POSITIVE(A) NEGATIVE [facility] Blood specimen (specimen) Blood / Unknown 11/11/2017 10:37 AM EDT 11/11/2017 10:47 AM EDT [facility] - 11/11/2017 1:04 PM EDT [facility] [address] [place] [address] PT ID [id number] ORD# [id number] [facility] - BLOOD DRAW Edited Result - Final [address] [address], * HIV-1 & HIV-2 ANTIBODIES (11/11/2017 10:37 AM EDT) HIV 1 AND 2 ANTIBODY SCREEN NEGATIVE NEGATIVE [facility] Comment: This assay is a 4th generation assay allowing for earlier detection of HIV infection by detecting the presence of the HIV-1 p24 antigen as well as the traditional antibodies to HIV type 1 (including group O) and type 2. Use of a 4th generation assay is the current CDC recommendation for HIV screening. Blood specimen (specimen) Blood / Unknown 11/11/2017 10:37 AM EDT 11/11/2017 10:47 AM EDT Narrative [facility] - 11/11/2017 1:33 PM EDT [facility] [address] [place] [address] PT ID [id number] ORD# [id number] [facility] - BLOOD DRAW Final Result [facility] [address] [place] [address], [place] [phone] * HEMOGLOBIN, GLYCOSYLATED (A1C) (11/11/2017 10:37 AM EDT) GLYCATED HEMOGLOBIN A1C 6.0 <6.5 % [facility] ESTIMATED AVERAGE GLUCOSE 126 mg/dL [facility] Blood specimen (specimen) Blood / Unknown 11/11/2017 10:37 AM EDT 11/11/2017 10:47 AM EDT Narrative [facility] - 11/11/2017 1:24 PM EDT [facility] [address] [place] [address] PT ID [id number] ORD# [id number] [facility] - BLOOD DRAW Final Result Performing Organization Address City/[facility]/ZIP Co de Phone Number [facility] [address] [place] [address], * (ABNORMAL) LIPID PANEL (11/11/2017 10:37 AM EDT) CHOLESTEROL 191 0 - 200 mg/dL [facility] TRIGLYCERIDES 227(H) 0 - 150 mg/dL [facility] HDL CHOLESTEROL 32(L) >40 mg/dL [facility] LDL CALCULATED 114(H) 0 - 100 mg/dL [facility] TC-HDLC RATIO 6.0(H) 0 - 4.4 mg/dL [facility] Blood specimen (specimen) Blood / Unknown 11/11/2017 10:37 AM EDT 11/11/2017 10:47 AM EDT Narrative [facility] - 11/11/2017 12:45 PM EDT [facility] [address] [place] [address] PT ID [id number] ORD# [id number] [facility] - BLOOD DRAW Final Result [facility] [address] [place] [address], from Last 3 Months or Most Recently Relevant to Health Maintenance Insurance [facility] Care Teams Felt Coverer Relationship Specialty Start Date End Date Larisa Phillips FNP [address] [place] [address] PCP - General 01/09/19
--- OUTSIDE RECORDS SUMMARY | 2025-04-03 16:13 | XMS_ITS | Encounter Summary ---
Author Organization [employer] Address [address] [facility] 7t [place] [address] Care Team Providers Care Dinkey Locomotive Operator Name Role Phone GrossAndreabryannadeven ETHYLBENZENE CRACKING SUPERVISOR Primary Care Provider [phone] Bonnie Clark STEAM TABLE ASSOCIATE Primary Care Provider [phone] Reason for Visit * Reason Onset Date Comments Med Refill 10/16/2024 Encounter Details Date Type Department Care Team (Late st Contact Info) Description 10/16/2024 Refill [facility] WALK-IN CENTER [address] [place] [address] Name, MD Aidan [address] [place] [address] Social History Tobacco Use Types Packs/Day Years [...] 04/06/2025 1:00 PM EDT Office Visit [facility] MEDICINE [address] [place] [address] Bonnie Clark NP [address] [place] [address] 04/16/2025 2:00 PM EDT Office Visit [facility] OPTOMETRY [address] [place] [address] Jose Daniel, Jena, OD [address] [place] [address] documented as of this encounter Visit Diagnoses Not on filedocumented in this encounter Additional Health Concerns Assessment Noted Time PHQ-9 Depression Total Score: 17 024 11:12 AM EST documented as of this encounter Care Teams Dinkey Locomotive Operator Relationship Specialty Start Date End Date Anil Gross CNP PCP - General Family Medicine 08/17/24 11/14/24 Bonnie Clark NP [address] [place] [address] PCP - General Family Medicine 02/12/25 [facility] 05/23/24 documented as of this encounter
--- OUTSIDE RECORDS SUMMARY | 2025-04-03 16:13 | XMS_ITS | Encounter Summary ---
Author Organization [employer] Address [address] [place] [address] 7t [place] [address] Care Team Providers Care Director Case Management Name Role Phone Phyllis Skinner MD Primary Care Pro vider Anil Gross OPTICAL SYSTEMS ENGINEER Primary Care Provider [phone] Bonnie Clark PRINTED CIRCUIT BOARDS PLASMA ETCHER Primary Care Provider [phone] Reason for Visit * Reason Onset Date Comments PT1 12/06/2023 Encounter Details Date Type Department Care Team (Late st Contact Info) Description 12/06/2023 Telephone [facility] MEDICINE [address] [place], [place] [phone] Phyllis Skinner MD [address] [place], [place] [phone] PT1 Social History Tobacco Use Types Packs/Day [...] Y/N: Yes [facility] Address: [address] [place] [address] Escort needed: Y/N: No Do you have a wheelchair: Y/N: No If yes- Manual or electric: n/a Visits: 6 a year documented in this encounter Plan of Treatment Upcoming Encounters Date Type Department Care Team ([facility] st Contact Info) Description 04/06/2025 1:00 PM EDT Office Visit [facility] MEDICINE [address] [place] [address] Bonnie Clark NP [address] [place] [address] 04/16/2025 2:00 PM EDT Office Visit [facility] OPTOMETRY [address] [place], [place] [phone] Jena Sky, MAHNAZ [address] [place] [address] documented as of this encounter Visit Diagnoses Not on filedocumented in this encounter Additional Health Concerns Assessment Noted Time PHQ-9 Depression Total Score: 24 024 11:50 AM EST documented as of this encounter Care Teams Director Case Management Relationship Specialty Start Date End Date Phyllis Skinner MD [address] [place] [address] PCP - General Internal Medicine 07/29/23 08/16/24 Anil Gross CNP [address] [place] [address] PCP - General Family Medicine 08/17/24 11/14/24 Bonnie Clark NP [address] [place] [address] PCP - General Family Medicine 02/12/25 [facility] 05/23/24 documented as of this encounter
--- OUTSIDE RECORDS SUMMARY | 2025-04-03 16:13 | XMS_ITS | Encounter Summary ---
Author Organization [employer] Address [address] [facility] 7t [place] [address] Care Team Providers Care Transmission Inspector Name Role Phone Bonnie Clark NP Primary Care Provider [phone] Reason for Visit * Reason Comments Med Refill Encounter Details Date Type Department Care Team ([facility] st Contact Info) Description 04/03/2025 Refill [facility] MEDICINE [address] [place] [address] Phyllis Skinner MD [address] [place] [address] Social History Tobacco Use Types Packs/Day Years [...] 1:00 PM EDT Office Visit [facility] MEDICINE [address] [place] [address] Bonnie Clark NP [address] [place] [address] 04/16/2025 2:00 PM EDT Office Visit [facility] OPTOMETRY [address] [place] [address] Jose Daniel, Jena, OD [address] [place] [address] documented as of this encounter Visit Diagnoses Not on filedocumented in this encounter Additional Health Concerns Assessment Noted Time PHQ-9 Depression Total Score: 23 025 1:35 PM EDT documented as of this encounter Care Teams Transmission Inspector Relationship Specialty Start Date End Date Bonnie Clark NP [address] [place] [address] PCP - General Family Medicine 02/12/25 [facility] 05/23/24 documented as of this encounter
--- OUTSIDE RECORDS SUMMARY | 2025-04-03 16:13 | XMS_ITS | Encounter Summary ---
Author Organization [employer] Address [address] [facility] [address]t [place] [address] Care Team Providers Care Wardrobe Consultant Name Role Phone Bonnie Clark NP Primary Care Provider [phone] Reason for Visit * Reason Comments Pre-visit Planning SDOH negative. Tobac co screening negative, Encounter Details Date Type Department Care Team ([facility] st Contact Info) Description 03/30/2025 Patient Outreach [facility] [address] [place] [address] Bonnie Clark NP [address] [place] [address] Pre-visit Planning (SDOH negative. Tobacco screening negative, ) Social History Tobacco Use Types Packs/Day [...] as of this encounter Progress Notes * Roro Orr - 03/30/2025 11:16 AM EDT CC Roro Robles placed successful outbound call to patient for pre-visit planning. Patient name and confirmed. Patient confirms appt date and time, and has transportation arrangements. Biggest concern for appointment at this time is pain on both knees . Appropriate screenings completed in anticipation of appointment documented in this encounter Plan of Treatment Upcoming Encounters Date Type Department Care Team (Late st Contact Info) Description 04/06/2025 1:00 PM EDT Office Visit [facility] MEDICINE [address] [place] [address] Bonnie Clark NP [address] [place] [address] 04/16/2025 2:00 PM EDT Office Visit [facility] OPTOMETRY [address] [place] [address] Jena Sky OD [address] [place] [address] documented as of this encounter Visit Diagnoses Not on filedocumented in this encounter Additional Health Concerns Assessment Noted Time PHQ-9 Depression Total Score: 23 12/01/ 025 1:35 PM EDT documented as of this encounter Care Teams Wardrobe Consultant Relationship Specialty Start Date End Date Bonnie Clark NP [address] [place] [address] PCP - General Family Medicine 02/12/25 [facility] 05/23/24 documented as of this encounter
--- OUTSIDE RECORDS SUMMARY | 2025-04-03 16:13 | XMS_ITS | Clinical Summary ---
Author Organization [facility] Address [address] [place] [address] Care Team Providers Care Bed Laster Name Role Phone Tim Wright MD Primary Care Provider [phone] Social History Tobacco Use Types Packs/Day Years [...] of 3 - 19+ 3-dose series) 2002 HPV Vaccines (1 - 3-dose SCD M series) 2010 Depression Screening 06/28/2024 COVID-19 Vaccine (1 - 2023-2 5 season) 2025 Influenza Vaccine (#1) 2025 RSV Immunization Adult Patie nts (1 - 1-dose 75+ series) 2058 HIB Vaccines Aged Out No longer eligi [...] 5 Years) and At-Risk Patients (6 to 49 Years) Aged Out No longer eligible b ased on patient's age to complete this topic RSV Immunization Patients Un marcos 20 months Aged Out No longer eligible b ased on patient's age to complete this topic Varicella Vaccines Aged Out No longer eligible based on patient's age to complete this topic Care Teams Bed Laster Relationship Specialty Start Date End Date Tim Wright MD [address] [facility] [id number] [place] [address] PCP - General Internal Medicine 11/18/17
[2025-04-03 16:21] LABS: White Blood Count 8.2 X10*3/uL (4.8-10.8)
[2025-04-03 16:42] LABS: Alanine Aminotransferase 54 U/L (0-40); Albumin Level 4.0 g/dL (3.5-5.0); Alkaline Phosphatase 80 U/L (39-117); Anion Gap 15 (12-20); Aspartate Amino Transferase 122 U/L (5-37); Blood Urea Nitrogen 5 mg/dL (9-16); Calcium 9.1 mg/dL (8.4-10.2); Carbon Dioxide 28 mmol/L (22-29); Chloride 104 mmol/L (96-108); Cholesterol 182 mg/dL (<200); Estimated Glomerular Filt Rate > 60; HDL Cholesterol 35 mg/dL (>40); Potassium 3.5 mmol/L (3.3-5.1); Sodium 143 mmol/L (135-145); Total Protein 7.6 g/dL (6.5-8.0); Triglycerides 137 mg/dL (<150)
[2025-04-03 17:01] LABS: Free T4 (Free Thyroxine) 1.14 ng/dL (0.71-1.85); Thyroid Stimulating Hormone 1.14 uIU/mL (0.32-4.0)
[2025-04-03 20:02] LABS: Cannabinoid Screen Urine Not Detected (Not Detect)
== END 2025-04-03 13:15 | disposition home or self-care (01) ==
LOC: HO.HHCL 13:14
PROVIDERS: PCP Nurse Practitioner; Visit Provider Registered Nurse Psychiatric/Mental Health
DX: Z51.81 Encounter for therapeutic drug level monitoring (principal); R63.5 Abnormal weight gain; R53.83 Other fatigue; Z79.899 Other long term (current) drug therapy
CPT/HCPCS: 36415; 80053; 80061; 80307; 82248; 84439; 84443; 85048